=== PATIENT | male | born 1935 | race Caucasian/White ===

== ENCOUNTER 2017-08-21 02:34 | Observation (INO) ==
--- NOTE | 2017-08-21 02:38 | Emergency Department Note ---
Disposition Clinical Impression: Atrial fibrillation Qualifiers: Atrial fibrillation type: unspecified Qualified Code(s): I48.91 - Unspecified atrial fibrillation Disposition: Admitted As Inpatient Condition: Good Referrals: Selina Laws MD [Primary Care Provider] - Forms: ED Satisfaction Letter Arrhythmia/Palpitations HPI - General Chief Complaint: ED Arrhythmia/Palpitations Stated Complaint: irreg rhythm Time Seen by Provider: 08/21/17 02:34 Source: patient, EMS Mode of arrival: EMS Limitations: no limitations Nursing Notes Reviewed: Yes Vital Signs Reviewed: Yes - History of Present Illness HPI Narrative: 82-year-old male history of Parkinson's, atrial fibrillation on aspirin and Plavix who presents to the ER with a chief complaint of palpitations via EMS. Family reports that the patient follows with cardiology and was taken off his amiodarone one month ago because of adverse side effects. States he was not started on anything new and that the oxygen therapist had wanted to admit him last week to start a new medication. The patient declined at that time. Reports that he woke up this morning with palpitations and became anxious. No chest pain. Did feel somewhat short of breath. Reports that he used to be on Coumadin however he was having hematuria so they stopped it. At the time of arrival he was in A. fib RVR with a rate of 1:30. He did convert spontaneously to sinus rhythm without intervention. Pt Subjective Complaint: palpitations Onset (ago): Just [employer] Duration: constant Context: occurred during rest Arrhythmia History: atrial fibrillation Associated symptoms: Reports: denies other symptoms - Related Data Home Medications Medication Instructions Recorded Confirmed Amiodarone HCl [Pacerone] 200 mg PO DAILY 11/27/15 05/07/16 Aspirin 81 mg PO QPM 11/27/15 05/07/16 Clopidogrel [Plavix] 75 mg PO QPM 11/27/15 05/07/16 Furosemide [Lasix] 20 mg PO Q48H 11/27/15 05/07/16 Levothyroxine [Synthroid] 75 mcg PO DAILY 11/27/15 05/07/16 Metoprolol XL (24 HR) Succ [Toprol 12.5 mg PO DAILY 11/27/15 05/07/16 Xl] Nystatin POWDER [Nystop] 1 appl TP BID 11/27/15 05/07/16 Pantoprazole Sodium [Protonix] 40 mg PO DAILY 11/27/15 05/07/16 Pramipexole Di-HCl [Pramipexole 0.5 mg PO TID 11/27/15 05/07/16 Dihydrochloride] Simvastatin [Zocor] 20 mg PO QPM 11/27/15 05/07/16 Previous Rx's Medication Instructions Recorded Doxycycline 100 mg PO BID 10 Days capsule 04/04/16 Mupirocin [Bactroban Oint] 1 appl TP BID 14 Days tube 04/04/16 Allergies Allergy/AdvReac Type Severity Reaction Status Date / Time diphenhydramine Allergy See Verified 11/27/15 13:01 [From Benadryl] Comments All systems ED: reviewed and negative except as stated. Cardiovascular: Reports: palpitations. Denies: chest pain Respiratory: Denies: cough, dyspnea Gastrointestinal: Denies: abdominal pain, nausea, vomiting Past Medical History - Past Medical History Attestation: Yes The following information was validated with the patient. Source: patient Medical history: Reports: atrial fibrillation Surgical history: Reports: other Psychiatric history: Reports: no psych history - Social History Smoking Status: Never smoker Smokeless Tobacco Status: No Alcohol use: Reports: none Drug use: Reports: none Physical Exam - General Limitations: no limitations General appearance: alert, in no apparent distress - Head Head exam: atraumatic, normocephalic, normal inspection - Eye Eye exam: Present: normal appearance, EOMI - ENT ENT exam: normal exam - Neck Neck exam: Present: normal inspection, full ROM - Chest Chest inspection: Present: normal inspection, symmetric chest wall rise - Respiratory Respiratory exam: Present: normal lung sounds bilaterally - Cardiovascular Cardiovascular exam: Present: tachycardia, irregular rhythm, normal heart sounds - Abdominal Exam Abdominal exam: Present: soft, Non-Tender. Absent: tenderness - Extremities Exam Extremities exam: Present: normal inspection, full ROM - Expanded Upper Extremity Exam Shoulder exam: Present: normal inspection, full ROM Arm exam: Present: normal inspection, full ROM Elbow exam: Present: normal inspection, full ROM Forearm/Wrist exam: Present: normal inspection, full ROM Hand exam: Present: normal inspection, full ROM Vascular exam: Normal: radial pulse - Expanded Lower Extremity Exam Hip/Pelvis exam: Present: normal inspection, full ROM Upper leg exam: Present: normal inspection, full ROM Knee exam: Present: normal inspection, full ROM Lower leg exam: Present: normal inspection, full ROM Ankle exam: Present: normal inspection, full ROM Foot/toe exam: Present: normal inspection, full ROM Neurovascular/Tendon exam: Absent: motor deficit, sensory deficit - Neurological Exam Neurological exam: Present: alert - Psychiatric Psychiatric exam: Present: normal affect, normal mood - Skin Skin exam: Present: warm, dry, intact, normal color Course Course Narrative: Patient seen and examined. He has an irregularly irregular rhythm here is tachycardic. We will obtain an EKG, chest x-ray as well as labs including troponin, TSH and BNP. - Reevaluation(s) Reevaluation #1: I discussed results of imaging and lab work with the patient and family. They are agreeable with being admitted. Patient will be admitted to the hospitalist service. Noted to be back in A. fib with a rate in the 70s. Vital Signs Temperature 97.7 F 08/21/17 02:34 Pulse Rate 128 08/21/17 02:34 Respiratory Rate 20 08/21/17 02:34 Blood Pressure 110/83 08/21/17 02:34 O2 Sat by Pulse Oximetry 92 08/21/17 02:34 Temperature 97.7 F 08/21/17 02:34 Pulse Rate 75 08/21/17 04:07 Respiratory Rate 18 08/21/17 04:07 Blood Pressure 118/79 08/21/17 04:07 O2 Sat by Pulse Oximetry 96 08/21/17 04:07 Oxygen Delivery Oxygen Delivery Nasal Cannula Arrhythmia/Palpitations - [facility] Narrative Medical decision making narrative: 82-year-old male presents to the ER due to palpitations. Noted to be in A. fib RVR and presentation with a rate of 1:30. Hemodynamically stable. Converted without intervention. Then went back into A. fib but is currently rate controlled without intervention. Troponin within normal limits. Chest x-ray shows no acute findings. Patient was previously supposed to be admitted last week after seeing cardiology to adjust his medications due to failure of amiodarone secondary to side effect intolerance. Patient is admitted to the hospitalist service for atrial fibrillation. - Lab Data Lab results reviewed: Yes I reviewed the patient's lab results. Result diagrams: 08/21/17 03:26 08/21/17 03:26 Lab Results 08/21/17 08/21/17 08/21/17 Range/Units 03:26 03:26 03:26 WBC 6.2 (4.3-11.1) K/mcL RBC 4.47 (4.19-5.50) M/mcL Hgb 13.4 (12.9-16.9) g/dL Hct 41.0 (37.5-50.1) % MCV 91.7 (83.0-100.0) fL MCH 30.0 (28.0-33.3) pg MCHC 32.7 (31.6-35.5) g/dL RDW 11.6 (11.5-14.5) % Plt Count 176 (140-400) K/mcL MPV 10.6 (9.4-12.4) fL Immature Gran % 0.3 (0-4) % Seg Neutrophils % 56.0 % Lymphocytes % 32.4 % Monocytes % 8.6 % Eosinophils % 2.0 % Basophils % 0.7 % Neutrophils # 3.5 (1.6-8.9) K/mcL Lymphocytes # 2.0 (0.6-4.6) K/mcL Monocytes # 0.5 (0.0-1.3) K/mcL Eosinophils # 0.1 (0.0-0.6) K/mcL Basophils # 0.0 (0.0-0.2) K/mcL PT 11.3 (9.4-12.1) Seconds INR 1.1 APTT 30.6 (26.0-36.0) Seconds Sodium 140 (136-145) mEq/L Potassium 3.5 (3.5-4.5) mEq/L Chloride 103 (98-109) mEq/L Carbon Dioxide 30 H (19-29) mEq/L BUN 12 (8-26) mg/dL Creatinine 0.94 (0.72-1.25) mg/dL Est GFR ( Amer) > 60 (> 60) Est GFR (Non-Af Amer) > 60 (> 60) BUN/Creatinine Ratio 13 (6-26) Glucose 104 H (70-99) mg/dL Calculated Osmolality 290 (280-300) Calcium 9.2 (8.6-10.8) mg/dL Troponin I (0-0.03) ng/mL TSH 3.610 (0.350-4.840) mcIU/mL 08/21/17 Range/Units 03:26 WBC (4.3-11.1) K/mcL RBC (4.19-5.50) M/mcL Hgb (12.9-16.9) g/dL Hct (37.5-50.1) % MCV (83.0-100.0) fL MCH (28.0-33.3) pg MCHC (31.6-35.5) g/dL RDW (11.5-14.5) % Plt Count (140-400) K/mcL MPV (9.4-12.4) fL Immature Gran % (0-4) % Seg Neutrophils % % Lymphocytes % % Monocytes % % Eosinophils % % Basophils % % Neutrophils # (1.6-8.9) K/mcL Lymphocytes # (0.6-4.6) K/mcL Monocytes # (0.0-1.3) K/mcL Eosinophils # (0.0-0.6) K/mcL Basophils # (0.0-0.2) K/mcL PT (9.4-12.1) Seconds INR APTT (26.0-36.0) Seconds Sodium (136-145) mEq/L Potassium (3.5-4.5) mEq/L Chloride (98-109) mEq/L Carbon Dioxide (19-29) mEq/L BUN (8-26) mg/dL Creatinine (0.72-1.25) mg/dL Est GFR ( Amer) (> 60) Est GFR (Non-Af Amer) (> 60) BUN/Creatinine Ratio (6-26) Glucose (70-99) mg/dL Calculated Osmolality (280-300) Calcium (8.6-10.8) mg/dL Troponin I 0.01 (0-0.03) ng/mL TSH (0.350-4.840) mcIU/mL - Radiology Data Radiology results reviewed: Yes I reviewed the patient's radiology results. Chest X-Ray 08/21/17 02:35 IMPRESSION: Mild dependent left basilar atelectasis. Otherwise no acute findings. D/ / German Amador MD / German Amador MD Interpreting Provider: German Amador MD - EKG Data EKG attestation: Yes I reviewed and interpreted this EKG. EKG results narrative: EKG demonstrates atrial fibrillation with rapid ventricular response with a rate of 131. Left axis deviation. Poor R-wave progression. No gross ST elevations or depressions. No acute ischemic findings. Betsy - Betsy Situation: Demographics, MOA Background: Presenting Complaint, Relevant PMH, Meds, & Allergies Assessment: Vital Signs, Course and respsone to treatment, Exam Concerns, Patient/Family Expectation, Pertinant Lab Results, Outstanding Labs Recommendation: Barrier(s) to disposition, Recommendation based on pending studies, treatments, or consults Betsy Report Given to: Dr. Cameron Meyer Repor Time: 05:11 Attestation Statement - Attestation Attestation: I examined this patient and my medical decision-making was reviewed with the Resident Physician. I agree with the documented findings, disposition and treatment plan as described except to the extent set forth below. Patient eating Tylenol. Patient woke up with palpitations and chest pressure. Patient with history of atrial fibrillation. He is recently taken off his amiodarone secondary to side effects. States he was supposed to be admitted to the hospital for 3 days adjust his medications but he refused. Exam shows him in no distress. Heart tachycardia and irregular regular. Plan. Patient's rhythm converted spontaneously to normal sinus. Patient back in A. fib. Likely admission for cardiac eval.
[2017-08-21 03:32] LABS: Basophils % 0.7 %; Eosinophils # 0.1 K/mcL (0.0-0.6); Hemoglobin 13.4 g/dL (12.9-16.9); Immature Granulocytes % 0.3 % (0-4); Lymphocytes % 32.4 %; Mean Corpuscular HGB Conc 32.7 g/dL (31.6-35.5); Mean Corpuscular Volume 91.7 fL (83.0-100.0); Mean Platelet Volume 10.6 fL (9.4-12.4); Monocytes # 0.5 K/mcL (0.0-1.3); Monocytes % 8.6 %; Neutrophils # 3.5 K/mcL (1.6-8.9); Platelet Count 176 K/mcL (140-400); Red Blood Count 4.47 M/mcL (4.19-5.50); Red Cell Distribution Width 11.6 % (11.5-14.5)
[2017-08-21 03:37] LABS: INR 1.1; Prothrombin Time 11.3 Seconds (9.4-12.1)
[2017-08-21 03:40] LABS: Activated Partial Thrombo Time 30.6 Seconds (26.0-36.0)
[2017-08-21 03:45] LABS: BUN/Creatinine Ratio 13 (6-26); Blood Urea Nitrogen 12 mg/dL (8-26); Calcium 9.2 mg/dL (8.6-10.8); Carbon Dioxide 30 mEq/L (19-29); Chloride 103 mEq/L (98-109); Glucose 104 mg/dL (70-99); Osmolality,Calculated 290 (280-300); Potassium 3.5 mEq/L (3.5-4.5); Sodium 140 mEq/L (136-145); eGFR For African Americans > 60 (> 60); eGFR For Non-African Americans > 60 (> 60)
[2017-08-21] MEDS ORDERED: *HR* Morphine 2 MG/ML SYRINGE IVP PRN (05:10)
[2017-08-21] MEDS ORDERED: *HR* HYDROcodone/Acet 5/325 mg TABLET PO PRN (05:10)
[2017-08-21] MEDS ORDERED: Ondansetron 4 MG/2 ML VIAL IVP PRN (05:10)
[2017-08-21] MEDS ORDERED: Acetaminophen 325 MG TABLET PO PRN (05:10)
[2017-08-21] MEDS ORDERED: MOM Conc 10 ML UD.LIQ PO PRN (05:10)
[2017-08-21] MEDS ORDERED: Naloxone 0.4 MG/ML INJ IVP PRN (05:10)
[2017-08-21] MEDS ORDERED: *HR* Promethazine 25 MG/ML VIAL IVP PRN (05:10)
--- NOTE | 2017-08-21 06:27 | Internal Med History&Physical ---
Date of Encounter: 08/21/17 Time of Encounter: 05:20 Assessment and Plan (1) Atrial fibrillation with RVR Current visit: Yes Status: Acute Will place the pt into Tele for observation Currently on the monitor he is in NSR he is still going in and out Afib, however it is rate controlled Will cont home PO med Metoprolol Will consult Crdiology to discuss about anti arrythamic medication Cont ASA and Plavix for anticoag will check serial trop reviewed EKG from ER showed Afib with RVR VR @ 131 (2) Hypothyroidism (acquired) Current visit: Yes Status: Acute resumed home med TSH - WNL @ 3.16 (3) Parkinson disease Current visit: No Status: Chronic stable resumed all home meds (4) GERD (gastroesophageal reflux disease) Current visit: Yes Status: Acute resumed home PPI Qualifiers: Qualified Code(s): K21.9 - Gastro-esophageal reflux disease without esophagitis Internal Medicine - H&P: HPI Chief complaint: Palpitations Admitted From: Emergency Dept Plans for Post Hospital Care: Home History of present illness: Mr. Li is a 82 year old male with history of Parkinson's, HTN, Hypothyroidism , Chronic atrial fibrillation who presents to the ER with a chief complaint of palpitations via EMS. Family reports that the patient follows with woods overseer Dr. Delgado and was taken off his amiodarone one month ago because of adverse side effects. States he was not started on anything new and that the woods overseer had wanted to admit him in the hospital last week to start a new medication. The patient declined at that time. Reports that he woke up this morning with palpitations and became anxious. No chest pain. Did feel somewhat short of breath. Reports that he used to be on Coumadin however he was having hematuria so it was stopped. At the time of arrival he was in A. fib RVR with a rate of 131. He did convert spontaneously to sinus rhythm without intervention. Now he is going to in and out Afib and Sinus Rhythm Past Med Surg Social Fam HX - Past Medical History Medical history: atrial fibrillation Psychiatric history: no psych history - Past Surgical History Surgical History: other - Social History Smoking Status: Never smoker Smokeless Tobacco Status: No Alcohol use: none Drug use: none Internal Medicine - H&P: Meds Amiodarone HCl [Pacerone] 200 mg PO DAILY 11/27/15 [History] Aspirin 81 mg PO QPM 11/27/15 [History] Clopidogrel [Plavix] 75 mg PO QPM 11/27/15 [History] Furosemide [Lasix] 20 mg PO Q48H 11/27/15 [History] Levothyroxine [Synthroid] 75 mcg PO DAILY 11/27/15 [History] Metoprolol XL (24 HR) Succ [Toprol Xl] 12.5 mg PO DAILY 11/27/15 [History] Nystatin POWDER [Nystop] 1 appl TP BID 11/27/15 [History] Pantoprazole Sodium [Protonix] 40 mg PO DAILY 11/27/15 [History] Pramipexole Di-HCl [Pramipexole Dihydrochloride] 0.5 mg PO TID 11/27/15 [History ] Simvastatin [Zocor] 20 mg PO QPM 11/27/15 [History] Doxycycline 100 mg PO BID 10 Days capsule 04/04/16 [Rx] Mupirocin [Bactroban Oint] 1 appl TP BID 14 Days tube 04/04/16 [Rx] 3 Allergy/AdvReac Type Severity Reaction Status Date / Time diphenhydramine Allergy See Verified 11/27/15 13:01 [From Benadryl] Comments All Systems PM: A 10-system review of systems was performed and is negative for pertinent findings except as documented above in the HPI. Review of systems: All the systems are reviewed everything is benign except the systems and symptoms I mentioned in the history of present illness - Constitutional Vitals: Temp Pulse Resp BP Pulse Ox 97.7 F 75 16 149/98 96 08/21/17 02:34 08/21/17 04:07 08/21/17 06:03 08/21/17 06:03 08/21/17 04:07 General appearance: Present: A&O X 3, pleasant, no acute distress, answers questions appropriately - Head Head exam: Present: atraumatic, normal inspection - Respiratory Respiratory exam: Present: decreased breath sounds. Absent: rales, respiratory distress, rhonchi, wheezes - Cardiovascular Cardiovascular exam: Present: RRR, +S1, +S2. Absent: systolic murmur - GI/Abdominal GI/Abdominal exam: Present: normal bowel sounds, soft. Absent: rebound, rigid, tenderness - Extremities Exam Extremities exam: Absent: calf tenderness, pedal edema, tenderness - Neurological Exam Neurological exam: Present: alert, oriented X3. Absent: reflexes normal - Psychiatric Psychiatric exam: Present: normal affect, normal mood Internal Med - H&P Results - Labs CBC & Chem 7: 08/21/17 03:26 08/21/17 03:26
[2017-08-21] MEDS: Metoprolol XL (24 HR) Succ 25 MG TAB.ER.24H PO SCH (07:24)
--- NOTE | 2017-08-21 10:41 | Cardiology Consult Note ---
Date of Encounter: 08/21/17 Time of Encounter: 10:30 Assessment and Plan (1) Atrial fibrillation with RVR Current Visit: Yes Status: Chronic Per Cardiology: Presented with paroxysmal atrial fibrillation with RVR. Previous medical records reviewed from cardiology and patient with known history of paroxysmal atrial fibrillation. Recently had amiodarone discontinued per patient request and neurology with concerns of amiodarone contributing to neuropathy. Per review of records, patient declined further evaluation July 2017 of any other antiarrhythmic therapy. Patient now back in sinus rhythm on low dose Toprol XL 12.5mg PO daily-- appears to be new medication. Asked to reevaluate other antiarrhythmic options. Unfortunately, patient appears to have not been anticoagulated for many years now due to GI bleeding. Patient has Parkinson's disease and dementia. Per review of records, patient is not anticoagulated due to history of GI bleed, fall risk, and intermittent hematuria. No further recommendations for antiarrhythmic therapy during this hospital stay since not anticoagulated. Continue with current regimen. Patient will be scheduled with primary pulmonary fellow for follow-up to reevaluate long-term potential to consider repeat attempt at anticoagulation and other antiarrhythmic options. Discussed and reviewed with Dr. Fountain, cardiology will sign off, re-consult as needed, follow-up scheduled. Patient verbalized understanding, no family at bedside. (2) Hematuria Current Visit: Yes Status: Acute Per Cardiology: Patient reports concerns of hematuria intermittent the past few days, however upon review of medical records it appears hematuria and ongoing for quite some time. H&H stable. Further management per primary service. On aspirin and Plavix only for now. Qualifiers: Hematuria type: unspecified type Qualified Code(s): R31.9 - Hematuria, unspecified (3) CAD (coronary artery disease) Current Visit: Yes Status: Chronic Per Cardiology: History of CAD with previous stenting. Denies any chest pain. Troponin negative. Echo from July 2017 showed EF 60-65%, NSWMA. On aspirin, Plavix, statin, and now beta sailaja. Qualifiers: Coronary Disease-Associated Artery/Lesion type: rincon artery [place] vs. transplanted heart: rincon heart Associated angina: without angina Qualified Code(s): I25.10 - Atherosclerotic heart disease of rincon coronary artery without angina pectoris (4) Parkinson disease Current Visit: No Status: Chronic Per Cardiology: Patient with flat affect. Provided one-word answers. Again, no family at bedside. Per review of records, has history of Parkinson's and dementia. Discussion w patient/family: The assessment and plan as outlined above was discussed with the patient who expressed understanding and agreement. All questions were answered. Thank you for involving us in the care of your patient. Please call with any questions. History of Present Illness Consult date: 08/21/17 Requesting physician: Nancy Hidalgo Consult reason: Afib, Re-evalaute for antiarrhythmic Chief complaint: "Panting" History of present illness: Mr. Li is a 82 year old male with a relevant past medical history of dementia , Parkinson's disease, paroxysmal H of fibrillation, CAD, hypothyroidism, GERD. Patient recently seen by Dr. Delgado with cardiology in July 2017. Cardiology consult to evaluate potential antiarrhythmic therapy for recurrent paroxysmal atrial fibrillation. Patient seen today with no family at bedside. Patient with flat affect. Answers one word responses. He reports reason for admission was "panting". Patient confirms discontinuation of amiodarone recently. He confirms would like to reevaluate antiarrhythmic options. He reports has not been on Coumadin for at least 3 years now due to GI bleeding. He does report recent hematuria with clots in his urine. He denies any chest pain, palpitations, shortness of breath. Denies any other concerns. Patient eventually closed his eyes and would only continue with one-word answers. He was alert and oriented to person and place. Past Med Surg Social Fam HX - Past Medical History Attestation: Yes The following information was validated with the patient. Source: patient, old records reviewed Medical history: atrial fibrillation, coronary artery disease, dementia, GERD, thyroid disease, other (Parkinson's disease) Psychiatric history: no psych history - Past Surgical History Surgical History: other - Social History Smoking Status: Never smoker Smokeless Tobacco Status: No Alcohol use: none Drug use: none - Family History Mother Living Status: Father Living Status: Cause of : [place] Medications and Allergies Aspirin 81 mg PO QPM 11/27/15 [History] Clopidogrel [Plavix] 75 mg PO QTUTHSA 11/27/15 [History] Furosemide [Lasix] 20 mg PO Q48H 11/27/15 [History] Pantoprazole Sodium [Protonix] 40 mg PO DAILY 01/14/16 [History] Pramipexole Di-HCl [Pramipexole Dihydrochloride] 0.5 mg PO TID 11/27/15 [History ] Simvastatin [Zocor] 20 mg PO QPM 11/27/15 [History] Carbidopa/Levodopa [Carbidopa-Levodopa 25-100 Tab] 2 tab PO QID 08/21/17 [ History] Levothyroxine Sodium [Levoxyl] 112 mcg PO DAILY 08/21/17 [History] 3 Allergy/AdvReac Type Severity Reaction Status Date / Time diphenhydramine Allergy See Verified 11/27/15 13:01 [From Benadryl] Comments All Systems Review: A 10-system review of systems was performed and is negative for pertinent findings except as documented above in the HPI. - Cardiovascular Cardiovascular: as per HPI, dyspnea at rest Physical Examination Vital Signs, Last 4 Hours Pulse Ox 08/21/17 07:30 95 Selected Entries 08/21/17 04:07 08/21/17 06:27 08/21/17 07:30 Temperature 98.1 F Pulse Rate 63 Respiratory Rate 16 Blood Pressure 109/65 O2 Sat by Pulse Oximetry 95 Oxygen Flow Rate (LPM) 2 General: Conversant, No Apparent Distress HEENT: Atraumatic, Normocephaly, Mucus Membranes Moist Neck: No JVD, Normal carotid pulses Cardiac: Reg Rate and Rhythm, Normal S1 and S2, No Murmur Lungs: Normal Breath Sounds, No Wheeze, Rales, Rhonchi Neuro: Alert and responsive, No focal deficits noted, Other (Flat affect, alert to perosn and place) Abdomen: Soft, Non-Tender Skin: No rashes noted on visualized skin Musculoskeletal: No Chest Wall Tenderness Extremities: No Edema, Normal Pulses Results 08/21/17 03:26 08/21/17 03:26 Lab Results Laboratory Tests 08/21/17 08/21/17 08/21/17 03:26 03:26 03:26 INR 1.1 Troponin I 0.01 TSH 3.610 08/21/17 08:41 INR Troponin I 0.02 TSH ITS Impressions Chest X-Ray 08/21/17 02:35 IMPRESSION: Mild dependent left basilar atelectasis. Otherwise no acute findings. D/ / German Amador MD / German Amador MD Interpreting Provider: German Amador MD Active Medications Acetaminophen (Tylenol) 650 mg PO Q6HR PRN PRN Reason: Mild Pain (1-3) Stop: 02/20/18 05:11 Hydrocodone Bitart/Acetaminophen ([place] 5-325 Mg) 1 tab PO Q4HR PRN PRN Reason: Moderate Pain (4-6) Stop: 02/20/18 05:11 Aspirin (Aspirin) 81 mg PO QPM [facility] Stop: 02/20/18 18:01 Clopidogrel Bisulfate (Plavix) 75 mg PO QPM [facility] Stop: 02/20/18 18:01 Docusate Sodium (Colace) 100 mg PO BID PRN PRN Reason: Constipation Stop: 02/20/18 05:11 Levothyroxine Sodium (Synthroid) 75 mcg PO 0630 [facility] Stop: 02/20/18 06:31 Last Admin: 08/21/17 07:33 Dose: 75 mcg Magnesium Hydroxide (Milk Of Magnesia Conc) 10 ml PO DAILY PRN PRN Reason: Indigestion Stop: 02/20/18 05:11 Metoprolol Succinate (Toprol Xl) 12.5 mg PO DAILY [facility] Stop: 02/20/18 09:01 Last Admin: 08/21/17 07:24 Dose: Not Given Morphine Sulfate (Morphine Sulfate) 2 mg IVP Q4HR PRN PRN Reason: Severe Pain (7-10) Stop: 02/20/18 05:11 Naloxone HCl (Narcan) 0.4 mg IVP Q2MIN PRN PRN Reason: Opioid Reversal Stop: 02/20/18 05:11 Omeprazole (Prilosec) 20 mg PO 0630 [facility] Stop: 02/20/18 06:31 Last Admin: 08/21/17 07:34 Dose: 20 mg Ondansetron HCl (Zofran) 4 mg IVP Q6HR PRN PRN Reason: Nausea And Vomiting Stop: 02/20/18 05:11 Pramipexole Dihydrochloride (Mirapex) 0.5 mg PO TID [facility] Stop: 02/20/18 09:01 Last Admin: 08/21/17 07:34 Dose: 0.5 mg Promethazine HCl (Phenergan) 12.5 mg IVP Q6HR PRN PRN Reason: Nausea And Vomiting Stop: 02/20/18 05:11 Simvastatin (Zocor) 20 mg PO QPM [facility] PRN Reason: Protocol Stop: 02/20/18 18:01 - Imaging and Cardiology Chest Xray: report reviewed Echo: report reviewed - EKG Interpretation EKG results cardiology: personally reviewed (afib RVR 130's), other (Currently SR 70's on tele, telemetry reviewed with average heart rate the past 12 hours 70 , sinus rhythm, no recurrent A. fib or significant events noted) Consult Discharge Plan - Plan Referrals: Selina Laws MD [Primary Care Provider] -
--- NOTE | 2017-08-21 14:22 | Event Note ---
Date of Encounter: 08/21/17 Time of Encounter: 10:40 Patient denies any chest pain at this time. No palpitations. Shortness of breath has improved. Has converted to sinus rhythm. Continue metoprolol. Cardiology has been consulted. No indication for new antiarrhythmic agent as patient is not anticoagulated. Reports hematuria and is scheduled to follow up with urology as outpatient later this month for cystoscopy. Blood counts remain stable. Plan for discharge tomorrow if heart rate remains well controlled.
[2017-08-21] MEDS ORDERED: Aspirin 81 MG TAB.CHEW PO SCH (18:00)
[2017-08-21] MEDS: Carbidopa/Levodopa 25/100 TABLET PO SCH ×2 (18:39→21:24)
[2017-08-21] MEDS ORDERED: Carbidopa/Levodopa 25/100 TABLET PO SCH (21:00)
[2017-08-22] MEDS: Carbidopa/Levodopa 25/100 TABLET PO SCH (08:34)
[2017-08-22] MEDS: Metoprolol XL (24 HR) Succ 25 MG TAB.ER.24H PO SCH (08:34)
--- NOTE | 2017-08-22 10:04 | Discharge Summary ---
Date of Encounter: 08/22/17 Time of Encounter: 08:30 - Discharge Diagnosis (1) Atrial fibrillation with RVR Priority: Primary Status: Acute (2) GERD (gastroesophageal reflux disease) Priority: Secondary Status: Acute Qualifiers: Qualified Code(s): K21.9 - Gastro-esophageal reflux disease without esophagitis (3) Hypothyroidism (acquired) Priority: Secondary Status: Acute (4) Parkinson disease Priority: Secondary Status: Chronic - Discharge Medications Prescriptions: Metoprolol XL (24 HR) Succ [Toprol Xl] 12.5 mg PO DAILY #30 tab.er.24h Home Medications: Aspirin 81 mg PO QPM 11/27/15 [History] Clopidogrel [Plavix] 75 mg PO QTUTHSA 11/27/15 [History] Furosemide [Lasix] 20 mg PO Q48H 11/27/15 [History] Pantoprazole Sodium [Protonix] 40 mg PO DAILY 11/27/15 [History] Pramipexole Di-HCl [Pramipexole Dihydrochloride] 0.5 mg PO TID 11/27/15 [History ] Simvastatin [Zocor] 20 mg PO QPM 11/27/15 [History] Carbidopa/Levodopa [Carbidopa-Levodopa 25-100 Tab] 2 tab PO QID 08/21/17 [ History] Levothyroxine Sodium [Levoxyl] 112 mcg PO DAILY 08/21/17 [History] Metoprolol XL (24 HR) Succ [Toprol Xl] 12.5 mg PO DAILY #30 tab.er.24h 08/22/17 [Rx] Allergies/Adverse Reactions: 3 Allergy/AdvReac Type Severity Reaction Status Date / Time diphenhydramine Allergy See Verified 11/27/15 13:01 [From Benadryl] Comments Date of admission: 08/21/17 05:20 Primary care physician: Selina Laws MD Consults: 08/21/17 06:32 Consult to Washer Machine [CONS] Routine Reason for SW Consult: has [facility] 08/21/17 08:04 Consult to Cardiology [CONS] Routine Comment: Consulting Provider: Cardiology Elizabeth Reason for Consult: Afib - previously advised to change antiarrhythmic Call Completed: Yes Discharging clinician: Nancy Hidalgo Anticipated date of discharge: 08/22/17 - Patient Status Disposition: Home, Self-Care Condition: Good Functional capacity at discharge: independent ambulation Overall status at discharge: patient is progressing back to baseline - Discharge Instructions Instructions: Atrial Fibrillation (DC) Follow Up With: Julius Delgado MD [Partnered Physician] - (in 1-2 weeks) Selina Laws MD [Primary Care Provider] - (in 1 week) - Diet and Activity Activity: increase activity as tolerated Diet: advance to your usual diet, low fat, low cholesterol, low salt diet Hospital course: Mr. Li is a 82 year old male patient with a history of atrial fibrillation, Parkinson's disease, hypertension, hypothyroidism who was hospitalized here after presented with complaints of palpitations and increased anxiety along with shortness of breath. He was found to be in A. fib with rapid ventricle response with a heart rate between 120 and 140. He converted spontaneously to sinus rhythm but he was monitored overnight in the hospital and cardiology was consulted. Patient was placed on low-dose metoprolol. He had been recommended to start a different antiarrhythmic agent as his amiodarone was stopped due to pulmonary toxicity. However patient is currently not anticoagulated due to episodes of hematuria for which he has been scheduled for urologic follow-up and cystoscopy. Patient denies any new episodes of hematuria at this time. Cardiology recommends no further intervention at this time and to continue rate control with metoprolol patient has remained in sinus rhythm overnight and is now stable for discharge home. He will follow up with cardiology and urology as outpatient. - Time Spent with Patient Total time spent providing and/or coordinating discharge services: Less than 30 minutes (25 min) - Constitutional Vitals: Temp Pulse Resp BP Pulse Ox 97.8 F 63 15 117/74 93 08/22/17 06:16 08/22/17 06:16 08/22/17 06:16 08/22/17 06:16 08/22/17 06:16 General appearance: Present: A&O X 3, pleasant, no acute distress, answers questions appropriately - Respiratory Respiratory exam: Present: CTAB. Absent: accessory muscle use, rales, rhonchi, wheezes - Cardiovascular Cardiovascular exam: Present: RRR, +S1, +S2. Absent: diastolic murmur, gallop, rubs, systolic murmur - GI/Abdominal GI/Abdominal exam: Present: normal bowel sounds, soft, no peritoneal signs. Absent: distended, tenderness - Extremities Exam Extremities exam: Present: warm, radial pulses palpable and symmetrical. Absent : calf tenderness, cyanotic, pedal edema
[2017-08-22 10:24] VITALS: BP 134/68
--- NOTE | 2017-08-22 13:27 | Physician Discharge Referral ---
Home Health/Hosp Referral Info Transfer to: Hospice Provider in Charge Post Discharge: PCP - Diagnosis (1) Atrial fibrillation with RVR Priority: Primary Status: Acute (2) GERD (gastroesophageal reflux disease) Priority: Secondary Status: Acute (3) Hypothyroidism (acquired) Priority: Secondary Status: Acute (4) Parkinson disease Priority: Secondary Status: Chronic - Respiratory Orders Smoking Cessation: Smoking cessation has been advised. For more information, call the [place] Tobacco Quit Line at 6-246-EXCS-NOW. - Diet/Nutrition Diet/Nutrition Orders: Cardiac - Services Needed Following services are medically necessary services: Nursing, Home Health Aide, Physical Therapy, Occupational Therapy - Transfer Medications Prescriptions: Metoprolol XL (24 HR) Succ [Toprol Xl] 12.5 mg PO DAILY #30 tab.er.24h Home Medications: Aspirin 81 mg PO QPM 11/27/15 [History] Clopidogrel [Plavix] 75 mg PO QTUTHSA 11/27/15 [History] Furosemide [Lasix] 20 mg PO Q48H 11/27/15 [History] Pantoprazole Sodium [Protonix] 40 mg PO DAILY 11/27/15 [History] Pramipexole Di-HCl [Pramipexole Dihydrochloride] 0.5 mg PO TID 11/27/15 [History ] Simvastatin [Zocor] 20 mg PO QPM 11/27/15 [History] Carbidopa/Levodopa [Carbidopa-Levodopa 25-100 Tab] 2 tab PO QID 08/21/17 [ History] Levothyroxine Sodium [Levoxyl] 112 mcg PO DAILY 08/21/17 [History] Metoprolol XL (24 HR) Succ [Toprol Xl] 12.5 mg PO DAILY #30 tab.er.24h 08/22/17 [Rx] Allergies/Adverse Reactions: 3 Allergy/AdvReac Type Severity Reaction Status Date / Time diphenhydramine Allergy See Verified 11/27/15 13:01 [From Eris] Comments Certification: Further, I certify that my clinical findings support that this patient is homebound (i.e. absences from home require considerable and taxing effort and are for medical reasons or roman catholic services or infrequently or short duration when for other reasons) because: Homebound Reason: Patient requires assistance of a person or device to safely leave home Attestation: My signature below is to certify that this patient is under my care and that I, or nurse practitioner, or a physician's assistant track and field coach working with me, has a face-to -face encounter with this patient.
--- NOTE | 2017-08-22 13:48 | Electrocardiograph Report ---
[place] [id number] Test Date: 2017-08-21 Pat Name: Tra Li Department: 103 Room: 3B21 Gender: M Cardiovascular Lab Director: JARETH : [id number] Requested By: Keon Sánchez Order Number: [id number] Reading MD: Drea Merritt Measurements Intervals [place] Rate: 131 P: ID: 0 QRS: -41 QRSD: 95 T: 3 QT: 320 QTc: 397 Interpretive Statements ATRIAL FIBRILLATION WITH RAPID VENTRICULAR RESPONSE MARKED LEFT AXIS DEVIATION [QRS AXIS < -30] PATTERN CONSISTENT WITH PULMONARY DISEASE INCOMPLETE RIGHT BUNDLE BRANCH BLOCK [90+ ms QRS DURATION, TERMINAL R IN V1/V2, 40+ ms S IN I/aVL/V4/V5/V6] SEPTAL MYOCARDIAL INFARCTION [40+ ms Q WAVE IN V1/V2], PROBABLY OLD INTERPRETATION BASED ON A DEFAULT AGE OF 40 YEARS Electronically Signed On 08-22-2017 13:47:29 EDT by Drea Merritt
== END 2017-08-22 13:05 | disposition home or self-care (01) ==
LOC: EMEROO 02:34 → 3BNU 02:34 → SUATTDRO 05:20 → 3BNU 06:03
PROVIDERS: ADMIT Family Medicine; ATTEND Internal Medicine

== ENCOUNTER 2017-09-02 14:54 | Inpatient (IN) ==
[2017-09-02] MEDS ORDERED: 0.9 % Sodium Chloride 500 ML IVC ONE (15:00)
--- NOTE | 2017-09-02 15:08 | Emergency Department Note ---
Disposition Clinical Impression: Paroxysmal atrial fibrillation Disposition: Admitted As Inpatient Condition: Fair Referrals: Selina Laws MD [Primary Care Provider] - Forms: ED Satisfaction Letter Time of Disposition: 17:10 SOB HPI - General Chief Complaint: ED Shortness of Breath/Dyspnea Stated Complaint: BRITTNI Time Seen by Provider: 09/02/17 14:58 Source: patient, EMS Mode of arrival: EMS Limitations: no limitations Nursing Notes Reviewed: Yes Vital Signs Reviewed: Yes - History of Present Illness 82-year-old who comes in complaining of shortness of breath was noted to have a heart rate in the 60s. The patient does have a history of atrial fibrillation. Pt Subjective Complaint: shortness of breath Onset (ago): Just [employer] Context: other (Sewed of atrial fibrillation with rapid ventricular response a week ago.) Severity: moderate Consistency/Duration: constant Improves with: nothing Worsens with: exertion Associated symptoms: Denies: chest pain, fever, cough Treatment prior to arrival: oxygen Cough present: No - Related Data Home Medications Medication Instructions Recorded Confirmed Aspirin 81 mg PO QPM 11/27/15 08/26/17 Clopidogrel [Plavix] 75 mg PO QTUTHSA 11/27/15 08/26/17 Furosemide [Lasix] 20 mg PO Q48H 11/27/15 08/26/17 Pantoprazole Sodium [Protonix] 40 mg PO DAILY 11/27/15 08/26/17 Pramipexole Di-HCl [Pramipexole 0.5 mg PO TID 11/27/15 08/26/17 Dihydrochloride] Simvastatin [Zocor] 20 mg PO QPM 11/27/15 08/26/17 Carbidopa/Levodopa 2 tab PO QID 08/21/17 08/26/17 [Carbidopa-Levodopa 25-100 Tab] Levothyroxine Sodium [Levoxyl] 112 mcg PO DAILY 08/21/17 08/26/17 24Hour Allergy 08/26/17 Docusate [Colace] 100 mg PO BID 08/26/17 08/26/17 Ergocalciferol (VITAMIN D2) 400 unit PO DAILY 08/26/17 08/26/17 [Vitamin D] Loratadine [Claritin] 10 mg PO DAILY 08/26/17 08/26/17 Ranitidine HCl [Acid Customer Manager] 75 mg PO Q48H 08/26/17 08/26/17 Previous Rx's Medication Instructions Recorded Metoprolol XL (24 HR) Succ [Toprol 12.5 mg PO DAILY #30 tab.er.24h 08/22/17 Xl] Allergies Allergy/AdvReac Type Severity Reaction Status Date / Time diphenhydramine Allergy See Verified 08/26/17 11:36 [From Eris] Comments Constitutional: Denies: fever, chills, weakness, weight change Eyes: Denies: eye pain, eye discharge, vision change ENT ED: Denies: ear pain, throat pain, dental pain, hearing loss, epistaxis, congestion, dysphagia Cardiovascular: Reports: palpitations. Denies: chest pain, dyspnea on exertion , edema, syncope Respiratory: Reports: dyspnea. Denies: cough, wheezes, hemoptysis, stridor Gastrointestinal: Denies: abdominal pain, nausea, vomiting, diarrhea, constipation, hematemesis, melena, hematochezia Genitourinary: Denies: urgency, dysuria, frequency, hematuria Musculoskeletal: Denies: back pain, neck pain, arthralgia, myalgia Integumentary: Denies: rash, abrasion, lesions Neurological: Denies: headache, weakness, numbness, paresthesias, confusion, abnormal gait, vertigo Psychiatric: Denies: anxiety, depression, suicidal thoughts, homicidal thoughts , auditory hallucinations, visual hallucinations Endocrine: Denies: fatigue Hematological/Lymphatic: Denies: easy bleeding, easy bruising Allergic/Immunologic: Denies: facial swelling, urticaria Past Medical History - Past Medical History Medical history: Reports: atrial fibrillation, coronary artery disease, dementia , GERD, thyroid disease, other Surgical history: Reports: other Psychiatric history: Reports: no psych history - Social History Smoking Status: Never smoker Smokeless Tobacco Status: No Alcohol use: Reports: none Drug use: Reports: none Physical Exam - General Limitations: no limitations General appearance: alert, in no apparent distress - Head Head exam: atraumatic, normocephalic, normal inspection - Eye Eye exam: Present: normal appearance, PERRL, EOMI - ENT ENT exam: normal exam, normal oropharynx, mucous membranes moist - Neck Neck exam: Present: normal inspection, full ROM, trachea midline - Chest Chest inspection: Present: normal inspection, symmetric chest wall rise - Respiratory Respiratory exam: Present: normal lung sounds bilaterally - Cardiovascular Cardiovascular exam: Present: tachycardia (168), irregular rhythm, normal heart sounds - Abdominal Exam Abdominal exam: Present: soft, Non-Tender. Absent: tenderness, distention, guarding, rebound, rigidity - Extremities Exam Extremities exam: Present: normal inspection, full ROM. Absent: tenderness, pedal edema - Expanded Lower Extremity Exam Neurovascular/Tendon exam: Absent: motor deficit, sensory deficit, tendon deficit Gait: not tested/not observed - Back Exam Back exam: Present: normal inspection, full ROM. Absent: tenderness - Neurological Exam Neurological exam: Present: alert, oriented X3 - Psychiatric Psychiatric exam: Present: normal affect, normal mood - Skin Skin exam: Present: warm, dry, intact, normal color Course - Reevaluation(s) Reevaluation #1: While we were placing an IV the patient converted to a sinus rhythm with PACs a rate of 79. Time: 15:13 - Consultations Consultation #1: Discussed with Dr. Salcido, we will admit for monitoring consider increasing beta sailaja Time: 16:35 Consultation #2: Discussed with Rush Ross, admit Time: 17:09 Vital Signs Temperature 98 F 09/02/17 14:56 Pulse Rate 128 09/02/17 14:56 Respiratory Rate 18 09/02/17 14:56 Blood Pressure 106/76 09/02/17 14:56 O2 Sat by Pulse Oximetry 95 09/02/17 14:56 Temperature 98 F 09/02/17 14:56 Pulse Rate 78 09/02/17 16:45 Respiratory Rate 18 09/02/17 16:45 Blood Pressure 121/73 09/02/17 16:45 O2 Sat by Pulse Oximetry 97 09/02/17 16:45 Oxygen Delivery Oxygen Delivery Room Air Shortness of Breath/Dyspnea - Lab Data Result diagrams: 09/02/17 15:05 09/02/17 15:05 Lab Results 09/02/17 09/02/17 09/02/17 Range/Units 15:05 15:05 15:05 WBC 7.0 (4.3-11.1) K/mcL RBC 4.70 (4.19-5.50) M/mcL Hgb 14.8 (12.9-16.9) g/dL Hct 43.8 (37.5-50.1) % MCV 93.2 (83.0-100.0) fL MCH 31.5 (28.0-33.3) pg MCHC 33.8 (31.6-35.5) g/dL RDW 11.7 (11.5-14.5) % Plt Count 191 (140-400) K/mcL MPV 11.4 (9.4-12.4) fL Immature Gran % 0.4 (0-4) % Seg Neutrophils % 56.7 % Lymphocytes % 33.6 % Monocytes % 7.7 % Eosinophils % 0.9 % Basophils % 0.7 % Neutrophils # 4.0 (1.6-8.9) K/mcL Lymphocytes # 2.3 (0.6-4.6) K/mcL Monocytes # 0.5 (0.0-1.3) K/mcL Eosinophils # 0.1 (0.0-0.6) K/mcL Basophils # 0.1 (0.0-0.2) K/mcL Sodium 141 (136-145) mEq/L Potassium 3.7 (3.5-4.5) mEq/L Chloride 102 (98-109) mEq/L Carbon Dioxide 31 H (19-29) mEq/L BUN 8 (8-26) mg/dL Creatinine 0.98 (0.72-1.25) mg/dL Est GFR ( Amer) > 60 (> 60) Est GFR (Non-Af Amer) > 60 (> 60) BUN/Creatinine Ratio 8 (6-26) Glucose 98 (70-99) mg/dL Calculated Osmolality 290 (280-300) Lactic Acid 1.4 (0.5-2.2) mmol/L Calcium 9.6 (8.6-10.8) mg/dL Troponin I (0-0.03) ng/mL B-Natriuretic Peptide (0-100) pg/mL 09/02/17 09/02/17 Range/Units 15:05 15:05 WBC (4.3-11.1) K/mcL RBC (4.19-5.50) M/mcL Hgb (12.9-16.9) g/dL Hct (37.5-50.1) % MCV (83.0-100.0) fL MCH (28.0-33.3) pg MCHC (31.6-35.5) g/dL RDW (11.5-14.5) % Plt Count (140-400) K/mcL MPV (9.4-12.4) fL Immature Gran % (0-4) % Seg Neutrophils % % Lymphocytes % % Monocytes % % Eosinophils % % Basophils % % Neutrophils # (1.6-8.9) K/mcL Lymphocytes # (0.6-4.6) K/mcL Monocytes # (0.0-1.3) K/mcL Eosinophils # (0.0-0.6) K/mcL Basophils # (0.0-0.2) K/mcL Sodium (136-145) mEq/L Potassium (3.5-4.5) mEq/L Chloride (98-109) mEq/L Carbon Dioxide (19-29) mEq/L BUN (8-26) mg/dL Creatinine (0.72-1.25) mg/dL Est GFR ( Amer) (> 60) Est GFR (Non-Af Amer) (> 60) BUN/Creatinine Ratio (6-26) Glucose (70-99) mg/dL Calculated Osmolality (280-300) Lactic Acid (0.5-2.2) mmol/L Calcium (8.6-10.8) mg/dL Troponin I 0.01 (0-0.03) ng/mL B-Natriuretic Peptide 161 H (0-100) pg/mL - EKG Data EKG attestation: Yes I reviewed and interpreted this EKG. Rate: Reports: tachycardia (143) Rhythm: Reports: A.Fib Interpretation: Reports: other (A. fib RVR)
[2017-09-02 15:23] LABS: Basophils # 0.1 K/mcL (0.0-0.2); Basophils % 0.7 %; Eosinophils # 0.1 K/mcL (0.0-0.6); Eosinophils % 0.9 %; Hematocrit 43.8 % (37.5-50.1); Hemoglobin 14.8 g/dL (12.9-16.9); Immature Granulocytes % 0.4 % (0-4); Lymphocytes # 2.3 K/mcL (0.6-4.6); Lymphocytes % 33.6 %; Mean Corpuscular HGB Conc 33.8 g/dL (31.6-35.5); Mean Corpuscular Hemoglobin 31.5 pg (28.0-33.3); Mean Corpuscular Volume 93.2 fL (83.0-100.0); Mean Platelet Volume 11.4 fL (9.4-12.4); Monocytes # 0.5 K/mcL (0.0-1.3); Monocytes % 7.7 %; Platelet Count 191 K/mcL (140-400); Red Cell Distribution Width 11.7 % (11.5-14.5); Segmented Neutrophils % 56.7 %
[2017-09-02 15:36] LABS: BUN/Creatinine Ratio 8 (6-26); Blood Urea Nitrogen 8 mg/dL (8-26); Calcium 9.6 mg/dL (8.6-10.8); Carbon Dioxide 31 mEq/L (19-29); Chloride 102 mEq/L (98-109); Glucose 98 mg/dL (70-99); Osmolality,Calculated 290 (280-300); Potassium 3.7 mEq/L (3.5-4.5); Sodium 141 mEq/L (136-145); eGFR For African Americans > 60 (> 60); eGFR For Non-African Americans > 60 (> 60)
[2017-09-02] MEDS ORDERED: Naloxone 0.4 MG/ML INJ IVP PRN (18:06)
[2017-09-02] MEDS ORDERED: MOM Conc 10 ML UD.LIQ PO PRN (18:36)
[2017-09-02] MEDS ORDERED: Acetaminophen 325 MG TABLET PO PRN (18:36)
[2017-09-02] MEDS ORDERED: Ondansetron 4 MG/2 ML VIAL IVP PRN (18:36)
--- NOTE | 2017-09-02 18:59 | Internal Med History&Physical ---
<Francis Llanes - Last Filed: 09/02/17 18:56> Date of Encounter: 09/02/17 Time of Encounter: 18:30 Assessment and Plan (1) Atrial fibrillation with RVR Current visit: Yes Status: Acute A Fib w/ RVR on arrival, HR 160's Converted spontaneously to normal sinus rhythm Heart rate is currently resting in the 60s Patient experienced no chest pain, however he did have shortness of breath which has since resolved Patient recently started 12.5 mg Toprol, discontinued amiodarone due to medication toxicity CHADSVASC score 4, anticoagulation may be indication We will start the patient on lovenox Cardiology consulted from ED (2) Urinary frequency Current visit: Yes Status: Acute Urinary frequency, acute Present for 2 days, status post cystoscopy Patient is having no urinary symptoms at this time other than frequency We will check a urinalysis (3) Parkinson disease Current visit: Yes Status: Chronic Chronic Parkinson's, on hospice Mild dementia as noted in chart We will continue home medications (4) GERD (gastroesophageal reflux disease) Current visit: No Status: Acute Continue patient's PPI and H2 sailaja Qualifiers: Qualified Code(s): K21.9 - Gastro-esophageal reflux disease without esophagitis (5) DVT prophylaxis Current visit: Yes Status: Acute SQ Lovenox Internal Medicine - H&P: HPI Chief complaint: Shortness of Breath and fast heart beat Admitted From: Emergency Dept Plans for Post Hospital Care: Hospice - Home History of present illness: Mr. Li is a 82 year old male with history of Parkinson's disease on [facility], paroxysmal atrial fibrillation, CAD s/p 3 Stents, hematuria, GERD, anemia who presents to the ED for complaint of shortness of breath and fast heart rate for approximately one hour. He is accompanied by his who gives a majority of the history due to the soft-spoken nature of the patient. He was resting at home when he fell as she was beginning to be short of breath and experienced some diaphoresis, which point a hospice home health aide noted that the patient may be in atrial fibrillation. His heart rate was taken and apparently was around 120. The patient admits that he has had paroxysmal atrial fibrillation for 70 years, however he has previously been treated with amiodarone. Due to medication toxicity the patient discontinued his amiodarone approximately 2 weeks ago. He came to the ED about one week ago with similar problems of paroxysmal atrial fibrillation with rapid ventricular response at which time they started a beta sailaja. He denied any chest pains, back pains, nausea or vomiting, changes in level of consciousness, headache, changes in vision, dizziness. The patient does admit to urinary frequency which has been present for 2 days following a procedure done in the urology clinic outpatient which his believes was a cystoscopy. The patient had been experiencing hematuria in the months for but has not had any issues with this since. They deny fevers or chills. In the ED the patient received a chest x-ray which demonstrated no acute cardiopulmonary abnormality. EKG showed atrial fibrillation with a rate of 143. Initial troponin 0.01. Initial BNP 161. [id number] on admission is 4. We will admit to the floor with cardiac and O2 monitoring. Past Med Surg Social Fam HX - Past Medical History Medical history: atrial fibrillation, coronary artery disease, dementia, GERD, thyroid disease, other Psychiatric history: no psych history - Past Surgical History Surgical History: other - Social History Smoking Status: Never smoker Smokeless Tobacco Status: No Alcohol use: none Drug use: none - Family History Mother Living Status: Father Living Status: Internal Medicine - H&P: Meds Aspirin 81 mg PO QPM 11/27/15 [History] Clopidogrel [Plavix] 75 mg PO QTUTHSA 11/27/15 [History] Furosemide [Lasix] 20 mg PO Q48H 11/27/15 [History] Pantoprazole Sodium [Protonix] 40 mg PO DAILY 11/27/15 [History] Pramipexole Di-HCl [Pramipexole Dihydrochloride] 0.5 mg PO TID 11/27/15 [History ] Simvastatin [Zocor] 20 mg PO QPM 11/27/15 [History] Carbidopa/Levodopa [Carbidopa-Levodopa 25-100 Tab] 2 tab PO QID 08/21/17 [ History] Levothyroxine Sodium [Levoxyl] 112 mcg PO DAILY 08/21/17 [History] Metoprolol XL (24 HR) Succ [Toprol Xl] 12.5 mg PO DAILY #30 tab.er.24h 08/22/17 [Rx] Docusate [Colace] 100 mg PO BID 08/26/17 [History] Ergocalciferol (VITAMIN D2) [Vitamin D] 400 unit PO DAILY 08/26/17 [History] Loratadine [Claritin] 10 mg PO DAILY 08/26/17 [History] Ranitidine HCl [Acid Mixing Engineer] 75 mg PO Q48H 08/26/17 [History] 3 Allergy/AdvReac Type Severity Reaction Status Date / Time diphenhydramine Allergy See Verified 08/26/17 11:36 [From Benadryl] Comments - Constitutional Constitutional: excessive sweating, no chills, no fever(s), no night sweats, no weight gain - EENT Eyes: no change in vision, no discharge, no pain, no photophobia Ears: no ear discharge, no ear pain, no tinnitus Nose, mouth and throat: no dysphagia, no nasal discharge, no neck pain, no sore throat - Cardiovascular Cardiovascular ROS IM: diaphoresis, dyspnea, irregular heart rhythm, no chest pain, no lightheadedness, no palpitations, no syncope - Respiratory Respiratory: dyspnea, no cough, no wheezing, no excessive phlegm production - Gastrointestinal Gastrointestinal: no abdominal pain, no diarrhea, no hematemesis, no hematochezia, no melena, no nausea, no vomiting - Genitourinary Genitourinary ROS male: urinary frequency, no difficulty urinating, no dysuria, no hematuria - Musculoskeletal Musculoskeletal ROS IM: no numbness, no tingling - Integumentary Integumentary IM: no rash, no unusual bruising - Neurological Neurological ROS: numbness (chronic, managed by neurology), tingling, no confusion, no convulsions, no focal weakness, no headache(s), no tremor(s) - Psychiatric Psychiatric: no behavioral changes, no change in appetite, no confusion - Endocrine Endocrine IM: cold intolerance, no excessive sweating, no fatigue - Hematologic/Lymphatic Hematologic/Lymphatic: no easy bruising - Constitutional Vitals: Temp Pulse Resp BP Pulse Ox 98 F 61 16 110/66 97 09/02/17 14:56 09/02/17 17:35 09/02/17 18:08 09/02/17 18:08 09/02/17 17:35 General appearance: Present: A&O X 3, no acute distress - Head Head exam: Present: atraumatic, normocephalic - Eye Eye exam: Present: PERRL, conjuntiva pink, sclera anicteric Pupils: Present: PERRL - Neck Neck exam general surgery: Present: supple, trachea midline. Absent: lymphadenopathy - Respiratory Respiratory exam: Present: CTAB. Absent: accessory muscle use, rales, rhonchi, wheezes - Cardiovascular Cardiovascular exam: Present: RRR, +S1, +S2. Absent: diastolic murmur, gallop, rubs, systolic murmur - GI/Abdominal GI/Abdominal exam: Present: normal bowel sounds, soft, no peritoneal signs. Absent: distended, tenderness - Extremities Exam Extremities exam: Present: warm, radial pulses palpable and symmetrical. Absent : calf tenderness, cyanotic, pedal edema - Neurological Exam Neurological exam: Present: CN II-XII intact, oriented X3, no focal deficits. Absent: pronater drift, facial droop, speech deficit - Psychiatric Psychiatric exam: Present: flat affect - Skin Skin exam: Present: dry, intact Internal Med - H&P Results - Labs CBC & Chem 7: 09/02/17 15:05 09/02/17 15:05 <Kaleb Locke - Last Filed: 09/02/17 20:02> Date of Encounter: 09/02/17 Assessment and Plan (1) Paroxysmal atrial fibrillation Current visit: Yes Status: Acute (2) Parkinson disease Current visit: Yes Status: Chronic (3) Urinary frequency Current visit: Yes Status: Acute (4) Hypothyroidism (acquired) Current visit: No Status: Acute (5) GERD (gastroesophageal reflux disease) Current visit: No Status: Acute Qualifiers: Esophagitis presence: without esophagitis Qualified Code(s): K21.9 - Gastro -esophageal reflux disease without esophagitis (6) CAD (coronary artery disease) Current visit: No Status: Chronic Qualifiers: Coronary Disease-Associated Artery/Lesion type: [place] artery [place] vs. transplanted heart: [place] heart Associated angina: without angina Qualified Code(s): I25.10 - Atherosclerotic heart disease of [place] coronary artery without angina pectoris Internal Medicine - H&P: HPI History of present illness: Mr. Li is a 82 year old male All Systems PM: A 10-system review of systems was performed and is negative for pertinent findings except as documented above in the HPI. - Constitutional Vitals: Temp Pulse Resp BP Pulse Ox 98.3 F 66 14 136/94 95 09/02/17 19:39 09/02/17 19:39 09/02/17 19:39 09/02/17 19:39 09/02/17 19:39 Internal Med - H&P Results - Labs CBC & Chem 7: 09/02/17 15:05 09/02/17 15:05 Labs: Cardiac Enzymes 09/02/17 Range/Units 19:20 Troponin I 0.01 (0-0.03) ng/mL - Attending Attestation I examined this patient and my medical decision-making was reviewed with the Resident Physician on 09/02/17. I agree with the documented findings, disposition and treatment plan as described except to the extent set forth below. Mr Li is 82 y/o male with hx of a fib presented to ED with tachycardia and dyspnea. He stopped amiodarone 2 weeks ago. Has converted to NSR. No CP or SOB. No fever or chills. at bedside and said this is recurrent. Patient does not give much history. Exam Alert. Comfortable Slow movements and speech Mucus membranes dry Heart reg Lungs clear Abd soft and nontender Trace edema I/P 1 Parox afib 2 Parkinsons Further diagnoses and plan as above.
[2017-09-02] MEDS: Famotidine 20 MG TABLET PO SCH (22:27)
[2017-09-02] MEDS: Carbidopa/Levodopa 25/100 TABLET PO SCH (22:27)
[2017-09-02] MEDS: Furosemide 20 MG TABLET PO SCH (22:28)
[2017-09-03 00:26] LABS: Basophils % 0.5 %; Eosinophils # 0.1 K/mcL (0.0-0.6); Eosinophils % 0.8 %; Hematocrit 39.6 % (37.5-50.1); Hemoglobin 13.5 g/dL (12.9-16.9); Immature Granulocytes % 0.3 % (0-4); Lymphocytes # 2.1 K/mcL (0.6-4.6); Lymphocytes % 27.9 %; Mean Corpuscular HGB Conc 34.1 g/dL (31.6-35.5); Mean Corpuscular Hemoglobin 31.4 pg (28.0-33.3); Mean Corpuscular Volume 92.1 fL (83.0-100.0); Mean Platelet Volume 11.2 fL (9.4-12.4); Monocytes # 0.5 K/mcL (0.0-1.3); Monocytes % 7.3 %; Neutrophils # 4.7 K/mcL (1.6-8.9); Platelet Count 191 K/mcL (140-400); Red Cell Distribution Width 11.7 % (11.5-14.5); Segmented Neutrophils % 63.2 %
[2017-09-03 00:44] LABS: Albumin 3.6 g/dL (3.5-5.0); Albumin/Globulin Ratio 1.2 (1.1-2.2); Alkaline Phosphatase 70 Units/L (38-126); Aspartate Amino Transferase 13 Units/L (5-34); BUN/Creatinine Ratio 11 (6-26); Bilirubin,Total 0.4 mg/dL (0.2-1.2); Blood Urea Nitrogen 10 mg/dL (8-26); Calcium 9.3 mg/dL (8.6-10.8); Carbon Dioxide 30 mEq/L (19-29); Chloride 103 mEq/L (98-109); Globulin 2.9 g/dL (2.4-3.5); Glucose 100 mg/dL (70-99); Osmolality,Calculated 287 (280-300); Potassium 3.8 mEq/L (3.5-4.5); Sodium 139 mEq/L (136-145); Total Protein 6.5 g/dL (6.0-8.3); eGFR For African Americans > 60 (> 60); eGFR For Non-African Americans > 60 (> 60)
[2017-09-03 00:45] LABS: Alanine Aminotransferase < 6 Units/L (0-55)
[2017-09-03] MEDS: *HR* Enoxaparin 80 MG/0.8 ML SYRINGE SQ SCH ×2 (05:56→17:03)
[2017-09-03] MEDS: Cholecalciferol (D-3) 1,000 UNIT TABLET PO SCH (08:19)
[2017-09-03] MEDS: Loratadine 10 MG TABLET PO SCH (08:19)
[2017-09-03] MEDS: Carbidopa/Levodopa 25/100 TABLET PO SCH ×4 (08:20→21:54)
[2017-09-03] MEDS ORDERED: Metoprolol XL (24 HR) Succ 25 MG TAB.ER.24H PO SCH (09:00)
--- NOTE | 2017-09-03 14:43 | Cardiology Consult Note ---
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 Since stopping Amiodarone, has had 2 admissions for PAF--palpitations and dyspnea. A-Fib HR 140s on admission, quickly converted back to SR. HR low 60s SR, on Toprol XL 12.5mg daily. wishes to pursue another antiarrhythmic--states it was mentioned by Dr. Delgado as well. Hx of CAD. Not anticoagulated due to hx of GI bleed, but currently in SR. Discussed with Dr. Salcido, recommends Sotalol 80mg BID. Will stop Toprol since HR is low 60s. Baseline EKG SR 09/02/17--HR 79, QRS 94ms, QT/QTc 357/391ms. Will need daily EKGs to monitor QTc. Will need monitored for 5 doses, starting first dose tonight. Normal renal function. No recent ischemic eval, but known hx of CAD and no anginal symptoms. Dr. Salcido okay proceeding without ischemic eval on Sotalol. Limited echo 08/04/17 EF 60-65%. Continue to follow. (2) CAD (coronary artery disease) Current Visit: No Status: Chronic Hx of PCI. ASA, Statin, Plavix, BB, ACEi. Qualifiers: Coronary Disease-Associated Artery/Lesion type: [place] artery [place] vs. transplanted heart: [place] heart Associated angina: without angina Qualified Code(s): I25.10 - Atherosclerotic heart disease of [place] coronary artery without angina pectoris Discussion w patient/family: The assessment and plan as outlined above was discussed with the patient and/or family members who expressed understanding and agreement. All questions were answered. Thank you for involving us in the care of your patient. Please call with any questions. History of Present Illness Consult date: 09/03/17 Requesting physician: Kaleb Locke Consult reason: PAF Chief complaint: palpitations History of present illness: Mr. Li is a 82 year old male with a relevant past medical history of dementia , Parkinson's disease, paroxysmal Atrial fibrillation, CAD s/p PCI, hypothyroidism, GERD. Patient recently seen by Dr. Delgado with cardiology in July 2017. 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 Since stopping Amiodarone, he has had 2 admissions for PAF. Yesterday, he developed dyspnea and palpitations, found to be in A-Fib RVR HR 150s, but since converted back to SR, HR currently 60s. Pt denies chest pain. Per pt and , trying a different antiarrhythmic was mentioned by Dr. Delgado. He is not anticoagulated--previously on Coumadin, stopped due to GI bleed. Cardiology consult to evaluate potential antiarrhythmic therapy for recurrent paroxysmal atrial fibrillation. Limited echo 08/04/17 EF 60-65%. Past Med Surg Social Fam HX - Past Medical History Medical history: atrial fibrillation, coronary artery disease, dementia, GERD, thyroid disease, other Psychiatric history: no psych history - Past Surgical History Surgical History: other - Social History Smoking Status: Never smoker Smokeless Tobacco Status: No Alcohol use: none Drug use: none - Family History Mother Living Status: Father Living Status: Medications and Allergies Aspirin 81 mg PO QPM 11/27/15 [History] Clopidogrel [Plavix] 75 mg PO QTUTHSA 11/27/15 [History] Furosemide [Lasix] 20 mg PO Q48H 11/27/15 [History] Pantoprazole Sodium [Protonix] 40 mg PO DAILY 11/27/15 [History] Pramipexole Di-HCl [Pramipexole Dihydrochloride] 0.5 mg PO TID 11/27/15 [History ] Simvastatin [Zocor] 20 mg PO QPM 11/27/15 [History] Carbidopa/Levodopa [Carbidopa-Levodopa 25-100 Tab] 2 tab PO QID 08/21/17 [ History] Levothyroxine Sodium [Levoxyl] 112 mcg PO DAILY 08/21/17 [History] Metoprolol XL (24 HR) Succ [Toprol Xl] 12.5 mg PO DAILY #30 tab.er.24h 08/22/17 [Rx] Docusate [Colace] 100 mg PO BID 08/26/17 [History] Ergocalciferol (VITAMIN D2) [Vitamin D] 400 unit PO DAILY 08/26/17 [History] Loratadine [Claritin] 10 mg PO DAILY 08/26/17 [History] Ranitidine HCl [Acid Inspector Precision Assembly] 75 mg PO Q48H 08/26/17 [History] 3 Allergy/AdvReac Type Severity Reaction Status Date / Time diphenhydramine Allergy See Verified 08/26/17 11:36 [From Eris] Comments All Systems Review: A 10-system review of systems was performed and is negative for pertinent findings except as documented above in the HPI. - Cardiovascular Cardiovascular: as per HPI, dyspnea at rest, dyspnea on exertion, palpitations - Respiratory Respiratory: dyspnea Physical Examination Vital Signs Temp Pulse Resp BP Pulse Ox 09/03/17 10:38 97.6 F 86 12 113/69 95 09/03/17 06:30 97.7 F 60 12 125/68 93 09/03/17 05:51 98.9 F 60 16 129/70 96 09/02/17 22:25 95 09/02/17 19:39 98.3 F 66 14 136/94 95 09/02/17 18:08 16 110/66 09/02/17 17:35 61 16 114/68 97 09/02/17 16:45 78 18 121/73 97 09/02/17 15:26 78 18 116/79 96 09/02/17 15:03 94 09/02/17 14:56 98 F 128 18 106/76 95 Intake and Output 09/02/17 09/03/17 09/03/17 23:59 07:59 15:59 Intake Total 360 / 360 Output Total 75 / 75 400 / 400 Balance -75 / -75 -40 / -40 Intake: Oral 360 / 360 Output: Urine 75 / 75 400 / 400 Other: Meal Lunch Percent of Meal Consumed 100% Stool Size Moderate Stool Consistency soft formed # Voids 1 # Bowel Movements 1 General: Conversant, No Apparent Distress HEENT: Atraumatic, Normocephaly, Mucus Membranes Moist Neck: No JVD, Normal carotid pulses Cardiac: Reg Rate and Rhythm, Normal S1 and S2, No Murmur Lungs: Normal Breath Sounds, No Wheeze, Rales, Rhonchi Neuro: Alert and responsive, No focal deficits noted Abdomen: Soft, Non-Tender Skin: No rashes noted on visualized skin Musculoskeletal: No Chest Wall Tenderness Extremities: No Clubbing, No Cyanosis, No Edema, Normal Pulses Results 09/03/17 00:19 09/03/17 00:19 Lab Results 09/02/17 09/03/17 09/03/17 19:20 00:19 00:19 WBC 7.4 Hgb 13.5 Hct 39.6 Plt Count 191 Sodium Potassium Chloride Carbon Dioxide BUN Creatinine Glucose Calcium Total Bilirubin AST ALT Alkaline Phosphatase Troponin I 0.01 0.02 09/03/17 09/03/17 00:19 06:37 WBC Hgb Hct Plt Count Sodium 139 Potassium 3.8 Chloride 103 Carbon Dioxide 30 H BUN 10 Creatinine 0.87 Glucose 100 H Calcium 9.3 Total Bilirubin 0.4 AST 13 ALT < 6 Alkaline Phosphatase 70 Troponin I 0.01 Short CBC 09/03/17 09/02/17 Range/Units 00:19 15:05 WBC 7.4 7.0 (4.3-11.1) K/mcL Hgb 13.5 14.8 (12.9-16.9) g/dL Hct 39.6 43.8 (37.5-50.1) % Plt Count 191 191 (140-400) K/mcL Neutrophils # 4.7 4.0 (1.6-8.9) K/mcL BMP 09/03/17 09/02/17 Range/Units 00:19 15:05 Sodium 139 141 (136-145) mEq/L Potassium 3.8 3.7 (3.5-4.5) mEq/L Chloride 103 102 (98-109) mEq/L Carbon Dioxide 30 H 31 H (19-29) mEq/L BUN 10 8 (8-26) mg/dL Creatinine 0.87 0.98 (0.72-1.25) mg/dL Glucose 100 H 98 (70-99) mg/dL Calcium 9.3 9.6 (8.6-10.8) mg/dL Cardiac Enzymes 09/03/17 09/03/17 09/02/17 Range/Units 06:37 00:19 19:20 Troponin I 0.01 0.02 0.01 (0-0.03) ng/mL 09/02/17 Range/Units 15:05 Troponin I 0.01 (0-0.03) ng/mL Liver Function 09/03/17 Range/Units 00:19 Total Bilirubin 0.4 (0.2-1.2) mg/dL AST 13 (5-34) Units/L ALT < 6 (0-55) Units/L Alkaline Phosphatase 70 (38-126) Units/L Albumin 3.6 (3.5-5.0) g/dL Impressions Chest X-Ray 09/02/17 14:58 IMPRESSION: No acute cardiopulmonary abnormality. D/ / Addy Forrest MD / Addy Forrest MD Interpreting Provider: Addy Forrest MD Active Medications Acetaminophen (Tylenol) 650 mg PO Q6HR PRN PRN Reason: Mild Pain (1-3) Stop: 03/04/18 18:37 Hydrocodone Bitart/Acetaminophen ([place] 5-325 Mg) 1 tab PO Q4HR PRN PRN Reason: Moderate Pain (4-6) Stop: 03/04/18 18:37 Aspirin (Aspirin) 81 mg PO QPM [facility] Stop: 03/05/18 18:01 Carbidopa/Levodopa (Sinemet) 2 each PO QID [facility] Stop: 03/04/18 21:01 Last Admin: 09/03/17 08:20 Dose: 2 each Clopidogrel Bisulfate (Plavix) 75 mg PO QTUTHSA [facility] Stop: 03/05/18 09:01 Last Admin: 09/03/17 08:19 Dose: 75 mg Docusate Sodium (Colace) 100 mg PO BID PRN PRN Reason: Constipation Stop: 03/04/18 18:37 Docusate Sodium (Colace) 100 mg PO BID [facility] PRN Reason: Protocol Stop: 03/04/18 21:01 Last Admin: 09/03/17 08:20 Dose: 100 mg Enoxaparin Sodium (Lovenox) 80 mg SQ Q12HCO SRINI PRN Reason: Protocol Stop: 03/05/18 06:01 Last Admin: 09/03/17 05:56 Dose: 80 mg Famotidine (Pepcid) 10 mg PO Q48H [facility] Stop: 03/04/18 19:01 Last Admin: 09/02/17 22:27 Dose: 10 mg Furosemide (Lasix) 20 mg PO Q48H [facility] Stop: 03/04/18 19:01 Last Admin: 09/02/17 22:28 Dose: Not Given Levothyroxine Sodium (Synthroid) 112 mcg PO DAILY [facility] Stop: 03/05/18 09:01 Last Admin: 09/03/17 08:19 Dose: 112 mcg Lisinopril (Zestril) 2.5 mg PO DAILY [facility] PRN Reason: Protocol Stop: 03/05/18 09:01 Last Admin: 09/03/17 08:20 Dose: 2.5 mg Loratadine (Claritin) 10 mg PO DAILY [facility] Stop: 03/05/18 09:01 Last Admin: 09/03/17 08:19 Dose: 10 mg Magnesium Hydroxide (Milk Of Magnesia Conc) 10 ml PO DAILY PRN PRN Reason: Indigestion Stop: 03/04/18 18:37 Metoprolol Succinate (Toprol Xl) 12.5 mg PO DAILY [facility] Stop: 03/05/18 09:01 Last Admin: 09/03/17 08:18 Dose: 12.5 mg Naloxone HCl (Narcan) 0.4 mg IVP Q2MIN PRN PRN Reason: Opioid Reversal Stop: 03/04/18 18:07 Omeprazole (Prilosec) 20 mg PO DAILY@0730 [facility] PRN Reason: Protocol Stop: 03/05/18 07:31 Last Admin: 09/03/17 08:19 Dose: 20 mg Ondansetron HCl (Zofran) 4 mg IVP Q8HR PRN PRN Reason: Nausea And Vomiting Stop: 03/04/18 18:37 Pramipexole Dihydrochloride (Mirapex) 0.5 mg PO TID [facility] Stop: 03/04/18 21:01 Last Admin: 09/03/17 08:19 Dose: 0.5 mg Simvastatin (Zocor) 20 mg PO QPM [facility] PRN Reason: Protocol Stop: 03/05/18 18:01 Vitamin D (Vitamin D) 500 unit PO DAILY [facility] Stop: 03/05/18 09:01 Last Admin: 09/03/17 08:19 Dose: 500 unit - Imaging and Cardiology Echo: report reviewed - EKG Interpretation EKG results cardiology: personally reviewed, other (12 hr tele AVG HR 60, SR) Consult Discharge Plan - Plan Referrals: Selina Laws MD [Primary Care Provider] -
--- NOTE | 2017-09-03 16:10 | Internal Med Progress Note ---
Date of Encounter: 09/03/17 Time of Encounter: 12:30 - Assessment and plan (1) Paroxysmal atrial fibrillation Current Visit: Yes Status: Acute Assessment and plan: Recurrent. To start on Sotalol tonight. Will be here through Tuesday. (2) Parkinson disease Current Visit: Yes Status: Chronic Assessment and plan: Continue home medications. (3) Urinary frequency Current Visit: Yes Status: Chronic Assessment and plan: Following. (4) Hypothyroidism (acquired) Current Visit: No Status: Chronic Assessment and plan: Continue med. (5) GERD (gastroesophageal reflux disease) Current Visit: No Status: Chronic Assessment and plan: Continue home meds. Qualifiers: Esophagitis presence: without esophagitis Qualified Code(s): K21.9 - Gastro -esophageal reflux disease without esophagitis (6) CAD (coronary artery disease) Current Visit: No Status: Chronic Assessment and plan: Continue home meds. Qualifiers: Coronary Disease-Associated Artery/Lesion type: [place] artery [place] vs. transplanted heart: [place] heart Associated angina: without angina Qualified Code(s): I25.10 - Atherosclerotic heart disease of [place] coronary artery without angina pectoris - Subjective Interval history: Mr Li is currently in observation for recurrent parox a fib with RVR. He remains moderate to high risk. Mr Li feels OK. No CP or SOB at this time. No fever or chills. No GI issues. Remains in sinus rhythm. - Constitutional Vitals: Temp Pulse Resp BP Pulse Ox 98.2 F 75 12 110/59 92 09/03/17 15:02 09/03/17 15:02 09/03/17 15:02 09/03/17 15:02 09/03/17 15:02 General appearance: Present: A&O X 3 - Head Head exam: Present: normocephalic - Eye Eye exam: Present: conjuntiva pink - ENT ENT exam: Present: mucous membranes dry - Respiratory Respiratory exam: Present: decreased breath sounds, CTAB. Absent: rhonchi, wheezes - Cardiovascular Cardiovascular exam: Present: RRR. Absent: tachycardia - GI/Abdominal GI/Abdominal exam: Present: normal bowel sounds, soft. Absent: tenderness - Extremities Exam Extremities exam: Present: warm. Absent: tenderness - Neurological Exam Neurological exam: Present: alert, oriented X3 Additional comments: Very slow. - Skin Skin exam: Present: warm. Absent: rash Internal Medicine: Result - Labs CBC & Chem 7: 09/03/17 00:19 09/03/17 00:19 Labs: Short CBC 09/03/17 Range/Units 00:19 WBC 7.4 (4.3-11.1) K/mcL Hgb 13.5 (12.9-16.9) g/dL Hct 39.6 (37.5-50.1) % Plt Count 191 (140-400) K/mcL Neutrophils # 4.7 (1.6-8.9) K/mcL BMP 09/03/17 00:19 Sodium 139 Potassium 3.8 Chloride 103 Carbon Dioxide 30 H BUN 10 Creatinine 0.87 Glucose 100 H Calcium 9.3 Cardiac Enzymes 09/02/17 09/03/17 09/03/17 Range/Units 19:20 00:19 06:37 Troponin I 0.01 0.02 0.01 (0-0.03) ng/mL Liver Function 09/03/17 Range/Units 00:19 Total Bilirubin 0.4 (0.2-1.2) mg/dL AST 13 (5-34) Units/L ALT < 6 (0-55) Units/L Alkaline Phosphatase 70 (38-126) Units/L Albumin 3.6 (3.5-5.0) g/dL Consult Discharge Plan - Plan Referrals: Selina Laws MD [Primary Care Provider] -
[2017-09-03] MEDS: Aspirin 81 MG TAB.CHEW PO SCH (16:47)
[2017-09-04] MEDS: *HR* Enoxaparin 80 MG/0.8 ML SYRINGE SQ SCH ×2 (06:37→17:51)
[2017-09-04] MEDS: Loratadine 10 MG TABLET PO SCH (09:49)
[2017-09-04] MEDS: Carbidopa/Levodopa 25/100 TABLET PO SCH ×5 (09:49→21:15)
[2017-09-04] MEDS: Cholecalciferol (D-3) 1,000 UNIT TABLET PO SCH (09:49)
--- NOTE | 2017-09-04 13:43 | Cardiology Progress Note ---
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 Since stopping Amiodarone, has had 2 admissions for PAF--palpitations and dyspnea. A-Fib HR 140s on admission, quickly converted back to SR. Toprol XL stopped 09/04/17. Sotalol 80 mg BID started 09/04/17. S/p two doses. Telemetry overnight showed sinus bradycardia with pauses up to 2 seconds. Avg HR was 56 bpm. HR noted to be in the 30's during nocturnal hours. HR 46 on my exam while patient was eating. Denies dizziness or lightheadedness. Not anticoagulant due to hx of GI bleed, but currently in SR. Baseline EKG SR 09/02/17--HR 79, QRS 94ms, QT/QTc 357/391ms. Will need daily EKGs to monitor QTc. Will need monitored for 5 doses, starting first dose tonight. EKG this am prior to second dose shows sinus bradycardia, HR 58. QT /QTc 459/ 424. Limited echo 08/04/17 EF 60-65%. Discussed with Dr. Salcido, decrease sotalol to 40 mg every 12 hours due to bradycardia. Continue to monitor. (3) CAD (coronary artery disease) Current Visit: No Status: Chronic Hx of PCI. ASA, Statin, Plavix, BB, ACEi. Qualifiers: Coronary Disease-Associated Artery/Lesion type: [place] artery [place] vs. transplanted heart: [place] heart Associated angina: without angina Qualified Code(s): I25.10 - Atherosclerotic heart disease of [place] coronary artery without angina pectoris Discussion w patient/family: The assessment and plan as outlined above was discussed with the patient and/or family members who expressed understanding and agreement. All questions were answered. Thank you for involving us in the care of your patient. Please call with any questions. Subjective Principal diagnosis: atrial fibrillation Interval history: Patient resting in bed. Daughter in-law at his bedside. No complaints. No events overnight. Denies dizziness or lightheadedness. Objective Vital Signs, Last 4 Hours Temp Pulse Resp BP Pulse Ox 09/04/17 10:26 97.8 F 51 12 121/62 94 General: No Apparent Distress, Other (Answers yes and no. Slow to respond. ) HEENT: Atraumatic, Normocephaly, Mucus Membranes Moist Neck: No JVD, Normal carotid pulses Cardiac: Reg Rate and Rhythm, Normal S1 and S2, No Murmur Lungs: Normal Breath Sounds, No Wheeze, Rales, Rhonchi Neuro: Alert and responsive, No focal deficits noted Abdomen: Soft, Non-Tender Skin: No rashes noted on visualized skin Musculoskeletal: No Chest Wall Tenderness, Other (generalized weakness noted.) Extremities: No Clubbing, No Cyanosis, No Edema, Normal Pulses Results 09/03/17 00:19 09/03/17 00:19 - EKG Interpretation EKG results cardiology: personally reviewed Consult Discharge Plan - Plan Referrals: Selina Laws MD [Primary Care Provider] -
--- NOTE | 2017-09-04 14:11 | Internal Med Progress Note ---
Date of Encounter: 09/04/17 Time of Encounter: 10:30 - Assessment and plan (1) Paroxysmal atrial fibrillation Current Visit: Yes Status: Acute Assessment and plan: Started on Sotalol yesterday. Has been bradycardic. Dose decreased today. Will remain in hospital for 5 doses so anticipate d/c late Tuesday or Tuesday. (2) Parkinson disease Current Visit: Yes Status: Chronic Assessment and plan: Continue home medications. (3) Hypothyroidism (acquired) Current Visit: No Status: Chronic Assessment and plan: Continue med. (4) GERD (gastroesophageal reflux disease) Current Visit: No Status: Chronic Assessment and plan: Continue home meds. Qualifiers: Esophagitis presence: without esophagitis Qualified Code(s): K21.9 - Gastro -esophageal reflux disease without esophagitis (5) CAD (coronary artery disease) Current Visit: No Status: Chronic Assessment and plan: Continue home meds. Qualifiers: Coronary Disease-Associated Artery/Lesion type: [place] artery [place] vs. transplanted heart: [place] heart Associated angina: without angina Qualified Code(s): I25.10 - Atherosclerotic heart disease of [place] coronary artery without angina pectoris - Subjective Interval history: Mr Li is currently in observation for recurrent parox a fib with RVR. He remains moderate to high risk. Mr Li has no complaints. No CP or SOB. No fever or chills. Has been bradycardic since starting Sotalol and dose decreased today. - Constitutional Vitals: Temp Pulse Resp BP Pulse Ox 97.8 F 51 12 121/62 94 09/04/17 10:26 09/04/17 10:26 09/04/17 10:26 09/04/17 10:26 09/04/17 10:26 General appearance: Present: A&O X 3 - Head Head exam: Present: normocephalic - Eye Eye exam: Present: conjuntiva pink - ENT ENT exam: Present: mucous membranes moist - Respiratory Respiratory exam: Present: decreased breath sounds, CTAB - Cardiovascular Cardiovascular exam: Present: bradycardia Additional comments: Regular and bradycardic - GI/Abdominal GI/Abdominal exam: Present: soft. Absent: tenderness - Extremities Exam Extremities exam: Present: warm. Absent: tenderness - Neurological Exam Additional comments: Slow responses - Skin Skin exam: Present: warm. Absent: rash Internal Medicine: Result - Labs CBC & Chem 7: 09/03/17 00:19 09/03/17 00:19 Consult Discharge Plan - Plan Referrals: Selina Laws MD [Primary Care Provider] -
[2017-09-04] MEDS: Furosemide 20 MG TABLET PO SCH (17:50)
[2017-09-04] MEDS: Aspirin 81 MG TAB.CHEW PO SCH (17:50)
[2017-09-04] MEDS: Famotidine 20 MG TABLET PO SCH (17:50)
--- NOTE | 2017-09-04 18:17 | Electrocardiograph Report ---
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
--- NOTE | 2017-09-04 18:19 | Electrocardiograph Report ---
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
[2017-09-05 03:57] LABS: Hematocrit 38.7 % (37.5-50.1); Hemoglobin 12.6 g/dL (12.9-16.9); Mean Corpuscular HGB Conc 32.6 g/dL (31.6-35.5); Mean Corpuscular Hemoglobin 31.1 pg (28.0-33.3); Mean Corpuscular Volume 95.6 fL (83.0-100.0); Mean Platelet Volume 11.6 fL (9.4-12.4); Platelet Count 150 K/mcL (140-400); Red Blood Count 4.05 M/mcL (4.19-5.50); Red Cell Distribution Width 11.8 % (11.5-14.5)
[2017-09-05 04:11] LABS: BUN/Creatinine Ratio 16 (6-26); Blood Urea Nitrogen 17 mg/dL (8-26); Calcium 8.9 mg/dL (8.6-10.8); Carbon Dioxide 25 mEq/L (19-29); Chloride 103 mEq/L (98-109); Glucose 76 mg/dL (70-99); Magnesium 1.7 mg/dL (1.6-2.6); Osmolality,Calculated 284 (280-300); Potassium 3.9 mEq/L (3.5-4.5); Sodium 137 mEq/L (136-145); eGFR For African Americans > 60 (> 60); eGFR For Non-African Americans > 60 (> 60)
[2017-09-05] MEDS: *HR* Enoxaparin 80 MG/0.8 ML SYRINGE SQ SCH ×2 (06:04→18:13)
[2017-09-05] MEDS: Loratadine 10 MG TABLET PO SCH (08:44)
[2017-09-05] MEDS: Carbidopa/Levodopa 25/100 TABLET PO SCH ×4 (08:44→19:46)
[2017-09-05] MEDS: Cholecalciferol (D-3) 1,000 UNIT TABLET PO SCH (08:45)
[2017-09-05] MEDS ORDERED: NON-FORMULARY MEDICATION 1 EACH EACH (Pantoprazole Sodium [Protonix] 40 MG) PO SCH (09:00)
--- NOTE | 2017-09-05 11:15 | Internal Med Progress Note ---
<Indra Moses - Last Filed: 09/05/17 14:18> Date of Encounter: 09/05/17 Time of Encounter: 09:00 - Assessment and plan (1) Paroxysmal atrial fibrillation Current Visit: Yes Status: Acute Assessment and plan: - A-fib RVR with rate of 140s on admission. - Spontaneous conversion to NSR. - Not anticoagulated given history of GI bleed. - On Sotalol since 09/04/17. Per cardiology, last dose will be given tonight and only hold if heart rate < 40. - Continue telemetry monitoring. - Plan to discharge home tomorrow. (2) Parkinson disease Current Visit: Yes Status: Chronic Assessment and plan: - Continue Sinemet. (3) Hypothyroidism (acquired) Current Visit: No Status: Chronic Assessment and plan: - Continue Synthroid. (4) GERD (gastroesophageal reflux disease) Current Visit: No Status: Chronic Assessment and plan: - Continue omeprazole. Qualifiers: Esophagitis presence: without esophagitis Qualified Code(s): K21.9 - Gastro -esophageal reflux disease without esophagitis (5) CAD (coronary artery disease) Current Visit: No Status: Chronic Assessment and plan: - Continue aspirin, simvastatin, lisinopril. Qualifiers: Coronary Disease-Associated Artery/Lesion type: [place] artery [place] vs. transplanted heart: [place] heart Associated angina: without angina Qualified Code(s): I25.10 - Atherosclerotic heart disease of [place] coronary artery without angina pectoris - Subjective Interval history: Patient was seen and examined this morning. Patient reports doing fine and denies palpitation, chest pain, shortness of breath, diaphoresis. - Constitutional Vitals: Temp Pulse Resp BP Pulse Ox 98.3 F 61 16 119/79 95 09/05/17 07:12 09/05/17 07:12 09/05/17 07:12 09/05/17 08:43 09/05/17 07:12 General appearance: Present: no acute distress Exam: Flat affect with very slow response. - Head Head exam: Present: atraumatic, normocephalic - Eye Eye exam: Present: EOMI, sclera anicteric - ENT ENT exam: Present: mucous membranes dry - Neck Neck exam general surgery: Present: normal inspection, supple, trachea midline - Respiratory Respiratory exam: Present: CTAB. Absent: rales, rhonchi, wheezes - Cardiovascular Cardiovascular exam: Present: bradycardia - GI/Abdominal GI/Abdominal exam: Present: diminished bowel sounds, soft. Absent: tenderness - Extremities Exam Extremities exam: Present: normal inspection. Absent: cyanotic, pedal edema - Neurological Exam Neurological exam: Present: alert. Absent: pronater drift, facial droop - Skin Skin exam: Present: dry, warm Internal Medicine: Result - Labs CBC & Chem 7: 09/05/17 02:28 09/05/17 02:28 Labs: Short CBC 09/05/17 Range/Units 02:28 WBC 7.8 (4.3-11.1) K/mcL Hgb 12.6 L (12.9-16.9) g/dL Hct 38.7 (37.5-50.1) % Plt Count 150 (140-400) K/mcL BMP 09/05/17 02:28 Sodium 137 Potassium 3.9 Chloride 103 Carbon Dioxide 25 BUN 17 Creatinine 1.04 Glucose 76 Calcium 8.9 Consult Discharge Plan - Plan Referrals: Selina Laws MD [Primary Care Provider] - 09/15/17 10:20 am Julius Delgado MD [Partnered Physician] - 09/16/17 11:00 am <Kaleb Locke A - Last Filed: 09/05/17 15:23> Date of Encounter: 09/05/17 - Assessment and plan (1) Paroxysmal atrial fibrillation Current Visit: Yes Status: Acute (2) Parkinson disease Current Visit: Yes Status: Chronic (3) Hypothyroidism (acquired) Current Visit: No Status: Chronic (4) GERD (gastroesophageal reflux disease) Current Visit: No Status: Chronic Qualifiers: Esophagitis presence: without esophagitis Qualified Code(s): K21.9 - Gastro -esophageal reflux disease without esophagitis (5) CAD (coronary artery disease) Current Visit: No Status: Chronic Qualifiers: Coronary Disease-Associated Artery/Lesion type: [place] artery [place] vs. transplanted heart: [place] heart Associated angina: without angina Qualified Code(s): I25.10 - Atherosclerotic heart disease of [place] coronary artery without angina pectoris - Constitutional Vitals: Temp Pulse Resp BP Pulse Ox 97.9 F 45 16 91/53 94 09/05/17 11:22 09/05/17 11:50 09/05/17 11:22 09/05/17 11:50 09/05/17 11:22 Internal Medicine: Result - Labs CBC & Chem 7: 09/05/17 02:28 09/05/17 02:28 Labs: Short CBC 09/05/17 Range/Units 02:28 WBC 7.8 (4.3-11.1) K/mcL Hgb 12.6 L (12.9-16.9) g/dL Hct 38.7 (37.5-50.1) % Plt Count 150 (140-400) K/mcL BMP 09/05/17 02:28 Sodium 137 Potassium 3.9 Chloride 103 Carbon Dioxide 25 BUN 17 Creatinine 1.04 Glucose 76 Calcium 8.9 - Attending Attestation I examined this patient and my medical decision-making was reviewed with the Resident Physician on 09/05/17. I agree with the documented findings, disposition and treatment plan as described except to the extent set forth below. Mr Li is currently in observation for parox a fib. He is now on Sotalol therapy. His dose was decreased yesterday and his heartrate is improved. He remains moderate to high risk due to potential for worsening cardiac status. Mr Weiss feels OK. No fever or chills. No CP or SOB. Appetite OK. Last Sotalol dose is tonight and his would like his heart rate monitored overnight tonight. Exam Alert. comfortable Mucus membranes dry Heart reg No wheeze Abd soft No edema I/P 1. Parox a fib 2. Parkinsons Further diagnoses and plan as above Anticipate d/c tomorrow AM.
--- NOTE | 2017-09-05 11:53 | Electrophysiology Consult Note ---
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 Since stopping Amiodarone, has had 2 admissions for PAF--palpitations and dyspnea. A-Fib HR 140s on admission, quickly converted back to SR. Toprol XL stopped 09/04/17. Sotalol 80 mg BID started 09/04/17. S/p two doses. Dose then decreased to 40mg BID due to HR noted to be in the 30's during nocturnal hours. 12 hr tele AVG HR 50, lowest HR noted to be 45, longest pause 2.1 seconds. Not anticoagulated due to hx of GI bleed, but currently in SR. Baseline EKG SR 09/02/17--HR 79, QRS 94ms, QT/QTc 357/391ms. Daily EKGs to monitor QTc. Will need monitored for 5 doses, 5th dose will be tonight. EKG 10 AM sinus bradycardia, HR 58. QT /QTc 459/424ms. EKG 10/ AM sinus bradycardia, HR 48. QT/QTc 446/412ms. Limited echo 08/04/17 EF 60-65%. I will discuss all the above with Dr. Sandro Marcelo and make changes as necessary. Will continue current plan. Hold Sotalol if HR <40bpm. 5th dose will be tonight. If HR is tolerating and pt is maintaining SR, anticipate sign off tomorrow. (2) CAD (coronary artery disease) Current Visit: No Status: Chronic Hx of PCI. ASA, Statin, Plavix, BB, ACEi. Qualifiers: Coronary Disease-Associated Artery/Lesion type: [place] artery [place] vs. transplanted heart: [place] heart Associated angina: without angina Qualified Code(s): I25.10 - Atherosclerotic heart disease of [place] coronary artery without angina pectoris Discussion w patient/family: The assessment and plan as outlined above was discussed with the patient and/or family members who expressed understanding and agreement. All questions were answered. Thank you for involving us in the care of your patient. Please call with any questions. I will discuss all the above with Dr. Sandro Marcelo and make changes as necessary. History of Present Illness Consult date: 09/05/17 Requesting physician: Linn Duncan Consult reason: A-Fib, Sotalol History of present illness: Mr. Li is a 82 year old male with a relevant past medical history of dementia , Parkinson's disease, paroxysmal Atrial fibrillation, CAD s/p PCI, hypothyroidism, GERD. Patient recently seen by Dr. Delgado with cardiology in July 2017. 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 Since stopping Amiodarone, he has had 2 admissions for PAF. Day of admission, he developed dyspnea and palpitations, found to be in A-Fib RVR HR 150s, but since converted back to SR. Pt denies chest pain. Per pt and , trying a different antiarrhythmic was mentioned by Dr. Delgado. He is not anticoagulated--previously on Coumadin, stopped due to GI bleed. Pt was seen by general cardiology, started on Sotalol 80mg BID, but became bradycardia after 2 doses with HR 30s during nocturnal hours. Sotalol dose decreased to 40mg BID yesterday--has received 4 total doses of Sotalol, maintaining SR. EP consulted for further recommendations. Pt currently denies any complaints, denies dizziness or lightheadedness. Limited echo 08/04/17 EF 60-65%. Past Med Surg Social Fam HX - Past Medical History Medical history: atrial fibrillation, coronary artery disease, dementia, GERD, thyroid disease, other Psychiatric history: no psych history - Past Surgical History Surgical History: other - Social History Smoking Status: Never smoker Smokeless Tobacco Status: No Alcohol use: none Drug use: none - Family History Mother Living Status: Father Living Status: Medications and Allergies Aspirin 81 mg PO QPM 11/27/15 [History] Clopidogrel [Plavix] 75 mg PO QTUTHSA 11/27/15 [History] Furosemide [Lasix] 20 mg PO Q48H 11/27/15 [History] Pantoprazole Sodium [Protonix] 40 mg PO DAILY 11/27/15 [History] Pramipexole Di-HCl [Pramipexole Dihydrochloride] 0.5 mg PO TID 11/27/15 [History ] Simvastatin [Zocor] 20 mg PO QPM 11/27/15 [History] Carbidopa/Levodopa [Carbidopa-Levodopa 25-100 Tab] 2 tab PO QID 08/21/17 [ History] Levothyroxine Sodium [Levoxyl] 112 mcg PO DAILY 08/21/17 [History] Metoprolol XL (24 HR) Succ [Toprol Xl] 12.5 mg PO DAILY #30 tab.er.24h 08/22/17 [Rx] Docusate [Colace] 100 mg PO BID 08/26/17 [History] Ergocalciferol (VITAMIN D2) [Vitamin D] 400 unit PO DAILY 08/26/17 [History] Loratadine [Claritin] 10 mg PO DAILY 08/26/17 [History] Ranitidine HCl [Acid Senior Environmental Technician] 75 mg PO Q48H 08/26/17 [History] 3 Allergy/AdvReac Type Severity Reaction Status Date / Time diphenhydramine Allergy See Verified 08/26/17 11:36 [From Eris] Comments All Systems Review: A 10-system review of systems was performed and is negative for pertinent findings except as documented above in the HPI. - Cardiovascular Cardiovascular: as per HPI, dyspnea at rest, palpitations Physical Examination Vital Signs, Last 4 Hours Temp Pulse Resp BP Pulse Ox 09/05/17 11:22 97.9 F 55 16 82/47 94 09/05/17 08:43 119/79 Vital Signs Temp Pulse Resp BP Pulse Ox 09/05/17 11:50 45 91/53 09/05/17 11:22 97.9 F 55 16 82/47 94 09/05/17 08:43 119/79 09/05/17 07:12 98.3 F 61 16 110/65 95 09/05/17 05:00 98.6 F 50 18 124/62 99 09/04/17 20:00 98.2 F 51 18 127/69 95 09/04/17 17:49 115/70 09/04/17 15:06 97.8 F 64 10 91/50 93 Intake and Output 09/04/17 09/05/17 09/05/17 23:59 07:59 15:59 Intake Total 180 / 180 120 / 120 Output Total 550 / 550 200 / 200 Balance -370 / -370 120 / 120 -200 / -200 Intake: Oral 180 / 180 120 / 120 Output: Urine 550 / 550 200 / 200 Other: Meal Dinner Percent of Meal Consumed 65% # Voids 2 2 Weight 81.9 kg Patient Weight 09/05/17 23:59 Weight 81.9 kg General: Conversant, No Apparent Distress HEENT: Atraumatic, Normocephaly, Mucus Membranes Moist Neck: No JVD, Normal carotid pulses Cardiac: Reg Rate and Rhythm, Normal S1 and S2, No Murmur Lungs: Normal Breath Sounds, No Wheeze, Rales, Rhonchi Neuro: Alert and responsive, No focal deficits noted Abdomen: Soft, Non-Tender Skin: No rashes noted on visualized skin Musculoskeletal: No Chest Wall Tenderness Extremities: No Clubbing, No Cyanosis, No Edema, Normal Pulses Results 09/05/17 02:28 09/05/17 02:28 Lab Results 09/05/17 09/05/17 02:28 02:28 WBC 7.8 Hgb 12.6 L Hct 38.7 Plt Count 150 Sodium 137 Potassium 3.9 Chloride 103 Carbon Dioxide 25 BUN 17 Creatinine 1.04 Glucose 76 Calcium 8.9 Magnesium 1.7 Short CBC 09/05/17 Range/Units 02:28 WBC 7.8 (4.3-11.1) K/mcL Hgb 12.6 L (12.9-16.9) g/dL Hct 38.7 (37.5-50.1) % Plt Count 150 (140-400) K/mcL [facility] 09/05/17 Range/Units 02:28 Sodium 137 (136-145) mEq/L Potassium 3.9 (3.5-4.5) mEq/L Chloride 103 (98-109) mEq/L Carbon Dioxide 25 (19-29) mEq/L BUN 17 (8-26) mg/dL Creatinine 1.04 (0.72-1.25) mg/dL Glucose 76 (70-99) mg/dL Calcium 8.9 (8.6-10.8) mg/dL Active Medications Acetaminophen (Tylenol) 650 mg PO Q6HR PRN PRN Reason: Mild Pain (1-3) Stop: 03/04/18 18:37 Hydrocodone Bitart/Acetaminophen ([place] 5-325 Mg) 1 tab PO Q4HR PRN PRN Reason: Moderate Pain (4-6) Stop: 03/04/18 18:37 Aspirin (Aspirin) 81 mg PO QPM [facility] Stop: 03/05/18 18:01 Last Admin: 09/04/17 17:50 Dose: 81 mg Carbidopa/Levodopa (Sinemet) 2 each PO QID SRINI Stop: 03/04/18 21:01 Last Admin: 09/05/17 08:44 Dose: 2 each Clopidogrel Bisulfate (Plavix) 75 mg PO QTUTHSA [facility] Stop: 03/05/18 09:01 Last Admin: 09/03/17 08:19 Dose: 75 mg Docusate Sodium (Colace) 100 mg PO BID PRN PRN Reason: Constipation Stop: 03/04/18 18:37 Docusate Sodium (Colace) 100 mg PO BID SRINI PRN Reason: Protocol Stop: 03/04/18 21:01 Last Admin: 09/05/17 08:44 Dose: 100 mg Enoxaparin Sodium (Lovenox) 80 mg SQ Q12HCO SRINI PRN Reason: Protocol Stop: 03/05/18 06:01 Last Admin: 09/05/17 06:04 Dose: 80 mg Famotidine (Pepcid) 10 mg PO Q48H [facility] Stop: 03/04/18 19:01 Last Admin: 09/04/17 17:50 Dose: 10 mg Furosemide (Lasix) 20 mg PO Q48H [facility] Stop: 03/04/18 19:01 Last Admin: 09/04/17 17:50 Dose: 20 mg Levothyroxine Sodium (Synthroid) 112 mcg PO DAILY [facility] Stop: 03/05/18 09:01 Last Admin: 09/05/17 08:44 Dose: 112 mcg Lisinopril (Zestril) 2.5 mg PO DAILY [facility] PRN Reason: Protocol Stop: 03/05/18 09:01 Last Admin: 09/05/17 08:46 Dose: 2.5 mg Loratadine (Claritin) 10 mg PO DAILY [facility] Stop: 03/05/18 09:01 Last Admin: 09/05/17 08:44 Dose: 10 mg Magnesium Hydroxide (Milk Of Magnesia Conc) 10 ml PO DAILY PRN PRN Reason: Indigestion Stop: 03/04/18 18:37 Naloxone HCl (Narcan) 0.4 mg IVP Q2MIN PRN PRN Reason: Opioid Reversal Stop: 03/04/18 18:07 Omeprazole (Prilosec) 20 mg PO DAILY@0730 SRINI PRN Reason: Protocol Stop: 03/05/18 07:31 Last Admin: 09/05/17 08:49 Dose: 20 mg Ondansetron HCl (Zofran) 4 mg IVP Q8HR PRN PRN Reason: Nausea And Vomiting Stop: 03/04/18 18:37 Pramipexole Dihydrochloride (Mirapex) 0.5 mg PO TID SRINI Stop: 03/04/18 21:01 Last Admin: 09/05/17 08:44 Dose: 0.5 mg Simvastatin (Zocor) 20 mg PO QPM SRINI PRN Reason: Protocol Stop: 03/05/18 18:01 Last Admin: 09/04/17 17:50 Dose: 20 mg Sotalol HCl (Betapace) 40 mg PO Q12HR SRINI Stop: 03/06/18 18:01 Last Admin: 09/04/17 17:51 Dose: 40 mg Vitamin D (Vitamin D) 500 unit PO DAILY [facility] Stop: 03/05/18 09:01 Last Admin: 09/05/17 08:45 Dose: 500 unit - Imaging and Cardiology Echo: report reviewed - EKG Interpretation EKG results cardiology: other (12 hr tele AVG HR 50, SR, longest pause 2.1 seconds, lowest HR 45 bpm) Consult Discharge Plan - Plan Referrals: Selina Laws MD [Primary Care Provider] - 09/15/17 10:20 am Julius Delgado MD [Partnered Physician] - 09/16/17 11:00 am <Sandro Marcelo - Last Filed: 09/05/17 16:58> Date of Encounter: 09/05/17 - Attending Attestation I have personally performed a face to face evaluation on this patient. I have reviewed and agree with the care plan. History and Exam by me shows: PAF, started on low dose sotalol. Previously on amio but stopped due to side effects. Currently in NSR. Assessment and Plan Discussion w patient/family: The assessment and plan as outlined above was discussed with the patient and/or family members who expressed understanding and agreement. All questions were answered. Thank you for involving us in the care of your patient. Please call with any questions. History of Present Illness History of present illness: Mr. Li is a 82 year old male All Systems Review: A 10-system review of systems was performed and is negative for pertinent findings except as documented above in the HPI. Physical Examination Vital Signs, Last 4 Hours Temp Pulse Resp BP Pulse Ox 09/05/17 15:38 98.3 F 50 16 101/51 96 Results 09/05/17 02:28 09/05/17 02:28 Lab Results 09/05/17 09/05/17 02:28 02:28 WBC 7.8 Hgb 12.6 L Hct 38.7 Plt Count 150 Sodium 137 Potassium 3.9 Chloride 103 Carbon Dioxide 25 BUN 17 Creatinine 1.04 Glucose 76 Calcium 8.9 Magnesium 1.7
--- NOTE | 2017-09-05 14:18 | Electrocardiograph Report ---
[address] [place], [place] [address] Test Date: 2017-09-04 Pat Name: Tra Li Department: 111 Room: 2NE17 Gender: M Service Porter: JONE : 1935 Requested By: Sancho Saba Order Number: [id number] Reading MD: Marjorie Howe Measurements Intervals [place] Rate: 48 P: 12 [place]: 154 QRS: -35 QRSD: 98 T: -8 QT: 459 QTc: 424 Interpretive Statements SINUS BRADYCARDIA LEFT AXIS DEVIATION LOW QRS VOLTAGE IN PRECORDIAL LEADS INCOMPLETE RIGHT BUNDLE BRANCH BLOCK MINIMAL VOLTAGE CRITERIA FOR LVH, CONSIDER NORMAL VARIANT POSSIBLE SEPTAL MYOCARDIAL INFARCTION, OF INDETERMINATE AGE Electronically Signed On 09-05-2017 14:17:25 EDT by Marjorie Howe
[2017-09-05] MEDS: *HR* HYDROcodone/Acet 5/325 mg TABLET PO PRN (15:59)
[2017-09-05] MEDS: Aspirin 81 MG TAB.CHEW PO SCH (18:12)
[2017-09-06] MEDS: *HR* HYDROcodone/Acet 5/325 mg TABLET PO PRN (05:01)
[2017-09-06] MEDS: *HR* Enoxaparin 80 MG/0.8 ML SYRINGE SQ SCH (05:01)
[2017-09-06] MEDS: Cholecalciferol (D-3) 1,000 UNIT TABLET PO SCH (07:54)
[2017-09-06] MEDS: Carbidopa/Levodopa 25/100 TABLET PO SCH ×2 (07:55→14:30)
[2017-09-06] MEDS: Loratadine 10 MG TABLET PO SCH (07:56)
--- NOTE | 2017-09-06 10:16 | Electrophysiology ProgressNote ---
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 Since stopping Amiodarone, has had 2 admissions for PAF--palpitations and dyspnea. A-Fib HR 140s on admission, quickly converted back to SR. Toprol XL stopped 09/04/17. Sotalol 80 mg BID started 09/04/17, received two doses, then decreased to 40mg BID due to HR noted to be in the 30's during nocturnal hours. 12 hr tele AVG HR 53, lowest HR noted to be 43, longest pause 2.1 seconds. Pt denies dizziness or lightheadedness. Not anticoagulated due to hx of GI bleed, but currently in SR. Baseline EKG SR 09/02/17--HR 79, QRS 94ms, QT/QTc 357/391ms. Daily EKGs to monitor QTc. Has received total of 6 doses. EKG 09/04 AM sinus bradycardia, HR 58. QT /QTc 459/424ms. EKG 09/05 AM sinus bradycardia, HR 48. QT/QTc 446/412ms. EKG 09/06 AM sinus bradycardia, HR 45. QT/QTc 455/412ms. Limited echo 08/04/17 EF 60-65%. BP 80s systolic this AM. Pt asymptomatic. Will stop Lisinopril. EP/Cardiology signing off. Reconsult PRN. Follow-up as outpt in 2 weeks--will coordinate. (2) CAD (coronary artery disease) Current Visit: No Status: Chronic Hx of PCI. ASA, Statin, Plavix, BB. Qualifiers: Coronary Disease-Associated Artery/Lesion type: [place] artery [place] vs. transplanted heart: [place] heart Associated angina: without angina Qualified Code(s): I25.10 - Atherosclerotic heart disease of [place] coronary artery without angina pectoris Discussion w patient/family: The assessment and plan as outlined above was discussed with the patient and/or family members who expressed understanding and agreement. All questions were answered. Thank you for involving us in the care of your patient. Please call with any questions. I will discuss all the above with Dr. Sandro Marcelo and make changes as necessary. Subjective Principal diagnosis: atrial fibrillation Interval history: Pt denies acute complaints this AM. Objective Vital Signs, Last 4 Hours Temp Pulse Resp BP Pulse Ox 09/06/17 06:33 97.7 F 54 12 80/56 96 Vital Signs Temp Pulse Resp BP Pulse Ox 09/06/17 06:33 97.7 F 54 12 80/56 96 09/06/17 03:30 98 F 56 16 127/71 96 09/05/17 19:45 96 09/05/17 19:39 97.8 F 50 16 112/69 96 09/05/17 15:38 98.3 F 50 16 101/51 96 09/05/17 11:50 45 91/53 09/05/17 11:22 97.9 F 55 16 82/47 94 Intake and Output 09/05/17 09/06/17 09/06/17 23:59 07:59 15:59 Intake Total 60 / 60 0 / 0 120 / 120 Output Total 575 / 575 300 / 300 100 / 100 Balance -515 / -515 -300 / -300 20 / 20 Intake: Oral 60 / 60 0 / 0 120 / 120 Output: Urine 575 / 575 300 / 300 100 / 100 Other: Meal Breakfast Percent of Meal Consumed 95% # Voids 1 Weight 82.1 kg Patient Weight 09/06/17 23:59 Weight 82.1 kg General: Conversant, No Apparent Distress HEENT: Atraumatic, Normocephaly, Mucus Membranes Moist Neck: No JVD, Normal carotid pulses Cardiac: Reg Rate and Rhythm, Normal S1 and S2, No Murmur Lungs: Normal Breath Sounds, No Wheeze, Rales, Rhonchi Neuro: Alert and responsive, No focal deficits noted Abdomen: Soft, Non-Tender Skin: No rashes noted on visualized skin Musculoskeletal: No Chest Wall Tenderness Extremities: No Clubbing, No Cyanosis, No Edema, Normal Pulses Results 09/05/17 02:28 09/05/17 02:28 Active Medications Acetaminophen (Tylenol) 650 mg PO Q6HR PRN PRN Reason: Mild Pain (1-3) Stop: 03/04/18 18:37 Hydrocodone Bitart/Acetaminophen ([place] 5-325 Mg) 1 tab PO Q4HR PRN PRN Reason: Moderate Pain (4-6) Stop: 03/04/18 18:37 Last Admin: 09/06/17 05:01 Dose: 1 tab Aspirin (Aspirin) 81 mg PO QPM [facility] Stop: 03/05/18 18:01 Last Admin: 09/05/17 18:12 Dose: 81 mg Carbidopa/Levodopa (Sinemet) 2 each PO QID [facility] Stop: 03/04/18 21:01 Last Admin: 09/06/17 07:55 Dose: 2 each Clopidogrel Bisulfate (Plavix) 75 mg PO QTUTHSA [facility] Stop: 03/05/18 09:01 Last Admin: 09/06/17 07:56 Dose: 75 mg Docusate Sodium (Colace) 100 mg PO BID PRN PRN Reason: Constipation Stop: 03/04/18 18:37 Docusate Sodium (Colace) 100 mg PO BID [facility] PRN Reason: Protocol Stop: 03/04/18 21:01 Last Admin: 09/06/17 07:55 Dose: 100 mg Enoxaparin Sodium (Lovenox) 80 mg SQ Q12HCO [facility] PRN Reason: Protocol Stop: 03/05/18 06:01 Last Admin: 09/06/17 05:01 Dose: 80 mg Furosemide (Lasix) 20 mg PO Q48H [facility] Stop: 03/04/18 19:01 Last Admin: 09/04/17 17:50 Dose: 20 mg Levothyroxine Sodium (Synthroid) 112 mcg PO 0630 [facility] Stop: 03/05/18 09:01 Last Admin: 09/06/17 05:01 Dose: 112 mcg Loratadine (Claritin) 10 mg PO DAILY [facility] Stop: 03/05/18 09:01 Last Admin: 09/06/17 07:56 Dose: 10 mg Magnesium Hydroxide (Milk Of Magnesia Conc) 10 ml PO DAILY PRN PRN Reason: Indigestion Stop: 03/04/18 18:37 Naloxone HCl (Narcan) 0.4 mg IVP Q2MIN PRN PRN Reason: Opioid Reversal Stop: 03/04/18 18:07 Omeprazole (Prilosec) 20 mg PO DAILY@0730 [facility] PRN Reason: Protocol Stop: 03/05/18 07:31 Last Admin: 09/06/17 07:55 Dose: 20 mg Ondansetron HCl (Zofran) 4 mg IVP Q8HR PRN PRN Reason: Nausea And Vomiting Stop: 03/04/18 18:37 Pramipexole Dihydrochloride (Mirapex) 0.5 mg PO TID [facility] Stop: 03/04/18 21:01 Last Admin: 09/06/17 07:56 Dose: 0.5 mg Simvastatin (Zocor) 20 mg PO QPM [facility] PRN Reason: Protocol Stop: 03/05/18 18:01 Last Admin: 09/05/17 18:12 Dose: 20 mg Sotalol HCl (Betapace) 40 mg PO Q12HR [facility] Stop: 03/06/18 18:01 Last Admin: 09/06/17 05:01 Dose: 40 mg Vitamin D (Vitamin D) 500 unit PO DAILY [facility] Stop: 03/05/18 09:01 Last Admin: 09/06/17 07:54 Dose: 500 unit - Imaging and Cardiology Echo: report reviewed - EKG Interpretation EKG results cardiology: other (12 hr tele AVG HR 53, SR, longest pause 2.1 seconds, lowest HR 43) - VTE Reasons for not Prescribing Prophylaxis: Not indicated-Anticoagulated or INR therapeutic Consult Discharge Plan - Plan Referrals: Selina Laws MD [Primary Care Provider] - 09/15/17 10:20 am Julius Delgado MD [Partnered Physician] - 09/16/17 11:00 am
[2017-09-06 10:33] VITALS: BP 94/58
--- NOTE | 2017-09-06 10:46 | Discharge Summary ---
<Indra Moses - Last Filed: 09/06/17 13:08> Date of Encounter: 09/06/17 Time of Encounter: 10:00 - Discharge Diagnosis (1) Paroxysmal atrial fibrillation Priority: Primary Status: Acute (2) Parkinson disease Priority: Secondary Status: Chronic (3) Hypothyroidism (acquired) Priority: Secondary Status: Chronic (4) GERD (gastroesophageal reflux disease) Priority: Secondary Status: Chronic Qualifiers: Esophagitis presence: without esophagitis Qualified Code(s): K21.9 - Gastro -esophageal reflux disease without esophagitis (5) CAD (coronary artery disease) Priority: Secondary Status: Chronic Qualifiers: Coronary Disease-Associated Artery/Lesion type: [place] artery [place] vs. transplanted heart: [place] heart Associated angina: without angina Qualified Code(s): I25.10 - Atherosclerotic heart disease of [place] coronary artery without angina pectoris - Discharge Medications Prescriptions: Sotalol [Betapace] 40 mg PO Q12HR #60 tablet Home Medications: Aspirin 81 mg PO QPM 11/27/15 [History] Clopidogrel [Plavix] 75 mg PO QTUTHSA 11/27/15 [History] Furosemide [Lasix] 20 mg PO Q48H 11/27/15 [History] Pantoprazole Sodium [Protonix] 40 mg PO DAILY 11/27/15 [History] Pramipexole Di-HCl [Pramipexole Dihydrochloride] 0.5 mg PO TID 11/27/15 [History ] Simvastatin [Zocor] 20 mg PO QPM 11/27/15 [History] Carbidopa/Levodopa [Carbidopa-Levodopa 25-100 Tab] 2 tab PO QID 08/21/17 [ History] Levothyroxine Sodium [Levoxyl] 112 mcg PO DAILY 08/21/17 [History] Docusate [Colace] 100 mg PO BID 08/26/17 [History] Ergocalciferol (VITAMIN D2) [Vitamin D] 400 unit PO DAILY 08/26/17 [History] Loratadine [Claritin] 10 mg PO DAILY 08/26/17 [History] Ranitidine HCl [Acid Director Of Labor And Delivery] 75 mg PO Q48H 08/26/17 [History] Sotalol [Betapace] 40 mg PO Q12HR #60 tablet 09/06/17 [Rx] Allergies/Adverse Reactions: 3 Allergy/AdvReac Type Severity Reaction Status Date / Time diphenhydramine Allergy See Verified 08/26/17 11:36 [From Benadryl] Comments Date of admission: 09/05/17 19:16 Primary care physician: Selina Laws MD Consults: Cardiology/electrophysiology Discharging clinician: Indra Moses Anticipated date of discharge: 09/06/17 - Patient Status Disposition: Home, Self-Care Condition: Fair Overall status at discharge: patient is progressing back to baseline - Discharge Instructions Instructions: Sotalol (By mouth), Atrial Fibrillation (DC), Hypothyroidism (DC) , Anemia (GEN), Fall Prevention (DC) Follow Up With: Selina Laws MD [Primary Care Provider] - 09/15/17 10:20 am Julius Delgado MD [Partnered Physician] - 09/16/17 11:00 am Additional Instructions: Please take Sotalol 40 mg by mouth every 12 hours. Please also note that your Toprol XL (metoprolol) had been discontinued. Please follow up with your primary care provider Dr. Laws on 09/15/17 Please follow up with your asset protection greeter Dr. Delgado on 09/16/17 - Diet and Activity Activity: increase activity as tolerated Diet: low fat, low cholesterol, low salt diet Hospital course: Mr. Li is a 82 year old male with PMH of Parkinson's disease on [facility], paroxysmal A-fib, CAD s/p 3 stents who presented to [place] ED for shortness of breath and tachycardia. Patient was noted to have A-fib with RVR at rate of 140s but quickly converted back to sinus rhythm. Patient was admitted on 09/02/17 for further management. Patient was switched from Toprol XL to Sotalol on 06/04/17 as recommended by cardiology. Patient tolerated 6 doses of Sotalol well without significant EKG change. Patient will be discharge home with 30-day prescription of sotalol 40 mg PO BID. Patient will follow up with his PCP Dr. Laws on 09/15/[address] Delgado on 09/16/17. The discharge plan was discussed with patient and his at bedside. Patient's verbalized her understanding and agreed with the plan. All question answered. - Time Spent with Patient Total time spent providing and/or coordinating discharge services: Greater than 30 minutes - Constitutional Vitals: Temp Pulse Resp BP Pulse Ox 97.8 F 78 12 94/58 95 09/06/17 10:31 09/06/17 10:31 09/06/17 10:31 09/06/17 10:31 09/06/17 10:31 General appearance: Present: no acute distress - Head Head exam: Present: atraumatic, normocephalic - Eye Eye exam: Present: EOMI, conjuntiva pink, sclera anicteric - Neck Neck exam general surgery: Present: supple, trachea midline. Absent: lymphadenopathy - Respiratory Respiratory exam: Present: CTAB. Absent: accessory muscle use, rales, rhonchi, wheezes - Cardiovascular Cardiovascular exam: Present: bradycardia, +S1, +S2. Absent: diastolic murmur, gallop, rubs, systolic murmur - GI/Abdominal GI/Abdominal exam: Present: normal bowel sounds, soft, no peritoneal signs. Absent: distended, tenderness - Extremities Exam Extremities exam: Present: warm, radial pulses palpable and symmetrical. Absent : calf tenderness, cyanotic, pedal edema - Neurological Exam Neurological exam: Present: alert. Absent: facial droop - Skin Skin exam: Present: dry, warm - VTE Reasons for not Prescribing Prophylaxis: Not indicated-Anticoagulated or INR therapeutic <Jose Newman - Last Filed: 09/06/17 16:25> Date of Encounter: 09/06/17 Date of admission: 09/05/17 19:16 Primary care physician: Selina Laws MD Hospital course: Mr. Li is a 82 year old male - Time Spent with Patient Total time spent providing and/or coordinating discharge services: - Constitutional Vitals: Temp Pulse Resp BP Pulse Ox 97.8 F 78 12 94/58 95 09/06/17 10:31 09/06/17 10:31 09/06/17 10:31 09/06/17 10:31 09/06/17 10:31 - Attending Attestation I examined this patient and my medical decision-making was reviewed with the Resident Physician. I agree with the documented findings, disposition and treatment plan as described except to the extent set forth below.
--- NOTE | 2017-09-06 13:08 | Physician Discharge Referral ---
<Indra Moses - Last Filed: 09/06/17 13:06> Home Health/Hosp Referral Info Transfer to: Hospice ([facility]) Provider in Charge Post Discharge: Human Factors Engineer - Diagnosis (1) Paroxysmal atrial fibrillation Status: Acute (2) Parkinson disease Status: Chronic (3) Hypothyroidism (acquired) Status: Chronic (4) GERD (gastroesophageal reflux disease) Status: Chronic (5) CAD (coronary artery disease) Status: Chronic - Respiratory Orders Oxygen / L per min (2L) Smoking Cessation: Smoking cessation has been advised. For more information, call the [place] Tobacco Quit Line at 9-373-DWWE-NOW. - Diet/Nutrition Diet/Nutrition Orders: Cardiac - Services Needed Following services are medically necessary services: Home Health Aide - Transfer Medications Prescriptions: Sotalol [Betapace] 40 mg PO Q12HR #60 tablet Home Medications: Aspirin 81 mg PO QPM 11/27/15 [History] Clopidogrel [Plavix] 75 mg PO QTUTHSA 11/27/15 [History] Furosemide [Lasix] 20 mg PO Q48H 11/27/15 [History] Pantoprazole Sodium [Protonix] 40 mg PO DAILY 11/27/15 [History] Pramipexole Di-HCl [Pramipexole Dihydrochloride] 0.5 mg PO TID 11/27/15 [History ] Simvastatin [Zocor] 20 mg PO QPM 11/27/15 [History] Carbidopa/Levodopa [Carbidopa-Levodopa 25-100 Tab] 2 tab PO QID 08/21/17 [ History] Levothyroxine Sodium [Levoxyl] 112 mcg PO DAILY 08/21/17 [History] Docusate [Colace] 100 mg PO BID 08/26/17 [History] Ergocalciferol (VITAMIN D2) [Vitamin D] 400 unit PO DAILY 08/26/17 [History] Loratadine [Claritin] 10 mg PO DAILY 08/26/17 [History] Ranitidine HCl [Acid Forest Nursery Supervisor] 75 mg PO Q48H 08/26/17 [History] Sotalol [Betapace] 40 mg PO Q12HR #60 tablet 09/06/17 [Rx] Allergies/Adverse Reactions: 3 Allergy/AdvReac Type Severity Reaction Status Date / Time diphenhydramine Allergy See Verified 10/13/17 11:36 [From Eris] Comments Certification: Further, I certify that my clinical findings support that this patient is homebound (i.e. absences from home require considerable and taxing effort and are for medical reasons or sikh services or infrequently or short duration when for other reasons) because: Homebound Reason: Leaving home requires considerable and taxing effort due to condition Attestation: My signature below is to certify that this patient is under my care and that I, or nurse practitioner, or a physician's assistant professor of marine biology working with me, has a face-to -face encounter with this patient. <Jose Newman P - Last Filed: 09/06/17 16:25> - Respiratory Orders Smoking Cessation: Smoking cessation has been advised. For more information, call the [place] Tobacco Quit Line at 2-996-HPUT-NOW. Certification: Further, I certify that my clinical findings support that this patient is homebound (i.e. absences from home require considerable and taxing effort and are for medical reasons or sikh services or infrequently or short duration when for other reasons) because: Attestation: My signature below is to certify that this patient is under my care and that I, or nurse practitioner, or a physician's assistant professor of marine biology working with me, has a face-to -face encounter with this patient.
--- NOTE | 2017-09-06 16:22 | Electrocardiograph Report ---
[address] [place], [place] [address] Test Date: 2017-09-06 Pat Name: Tra Li Department: 111 Room: 2NE17 Gender: M Coordinator Of Library Services: JONE : 1935 Requested By: Sancho Saba Order Number: [id number] Reading MD: Sandro Marcelo Measurements Intervals [place] Rate: 45 P: 20 DC: 185 QRS: -33 QRSD: 94 T: 1 QT: 455 QTc: 412 Interpretive Statements SINUS BRADYCARDIA MARKED LEFT AXIS DEVIATION LOW QRS VOLTAGE IN PRECORDIAL LEADS INCOMPLETE RIGHT BUNDLE BRANCH BLOCK SEPTAL MYOCARDIAL INFARCTION, OF INDETERMINATE AGE Electronically Signed On 09-06-2017 16:20:40 EDT by Sandro Marcelo
--- NOTE | 2017-09-17 11:37 | Electrocardiograph Report ---
[address] [place], [place] [address] Test Date: 2017-09-14 Pat Name: Tra Li Department: 102 Room: 2NE17 Gender: M Funeral Planning Counselor: Rosey : 1935 Requested By: Sancho Saba Order Number: [id number] Reading MD: Marjorie Howe Measurements Intervals [place] Rate: 164 P: [place]: 0 QRS: 183 QRSD: 182 T: -6 QT: 356 QTc: 446 Interpretive Statements REGULAR WIDE COMPLEX TACHYCARDIA - CONSIDER VENTRICULAR TACHYCARDIA MARKED RIGHT AXIS DEVIATION ST DEPRESSION, CONSIDER SUBENDOCARDIAL INJURY Electronically Signed On 09-17-2017 11:36:02 EDT by Marjorie Howe
== END 2017-09-06 17:53 | disposition home or self-care (01) | DRG 310 ==
LOC: 2NENU 14:54 → EMEROO 14:54 → 2NENU 18:45 → SUATTDRO 09-05 19:16
PROVIDERS: ADMIT Internal Medicine; ATTEND Internal Medicine

== ENCOUNTER 2017-09-27 22:20 | Observation (INO) ==
--- NOTE | 2017-09-27 22:35 | Emergency Department Note ---
START Narrative - START START: I examined this patient and my medical decision-making was reviewed with the Resident Physician. I agree with the documented findings, disposition and treatment plan as described except to the extent set forth below. 82 year old male presents to the ED via EMS. Patient has been monitoring his pulse rate and it has been as high as 116 and low as 49 in the past few hours. He has been evaluated by our cardiology group on 09/06 for PAT and it appears they lowered his dose of sotalol due to symptoamtic bradycardia. Review of recent EKG shows that on 09/14/17 he also had a wide complex tachycardia with rate of 164. Patient denies all symptoms at this time. We will do cardiopulmonary workup and monitor his HR and rhythm at bedside and likely consult cardiology before disposition has been made.
[2017-09-27 22:44] LABS: Basophils % 0.5 %; Eosinophils # 0.1 K/mcL (0.0-0.6); Eosinophils % 1.9 %; Hematocrit 42.1 % (37.5-50.1); Hemoglobin 14.1 g/dL (12.9-16.9); Immature Granulocytes % 0.3 % (0-4); Lymphocytes # 2.4 K/mcL (0.6-4.6); Lymphocytes % 38.3 %; Mean Corpuscular HGB Conc 33.5 g/dL (31.6-35.5); Mean Corpuscular Hemoglobin 31.1 pg (28.0-33.3); Mean Corpuscular Volume 92.9 fL (83.0-100.0); Mean Platelet Volume 11.5 fL (9.4-12.4); Monocytes # 0.5 K/mcL (0.0-1.3); Monocytes % 8.3 %; Neutrophils # 3.2 K/mcL (1.6-8.9); Platelet Count 183 K/mcL (140-400); Red Blood Count 4.53 M/mcL (4.19-5.50); Red Cell Distribution Width 11.6 % (11.5-14.5); Segmented Neutrophils % 50.7 %
[2017-09-27 22:49] LABS: INR 1.1; Prothrombin Time 12.3 Seconds (9.4-12.1)
[2017-09-27 22:56] LABS: BUN/Creatinine Ratio 13 (6-26); Blood Urea Nitrogen 11 mg/dL (8-26); Carbon Dioxide 30 mEq/L (19-29); Chloride 101 mEq/L (98-109); Glucose 101 mg/dL (70-99); Osmolality,Calculated 284 (280-300); Potassium 3.7 mEq/L (3.5-4.5); Sodium 137 mEq/L (136-145); eGFR For African Americans > 60 (> 60); eGFR For Non-African Americans > 60 (> 60)
--- NOTE | 2017-09-27 23:11 | Emergency Department Note ---
Disposition Clinical Impression: HCAP (healthcare-associated pneumonia) Disposition: Admitted As Inpatient Condition: Good General Adult HPI - General Chief complaint: ED Shortness of Breath/Dyspnea Stated complaint: "abnormal vital signs at home" Time Seen by Provider: 09/27/17 22:24 Source: patient, EMS Limitations: no limitations Nursing Notes Reviewed: Yes Vital Signs Reviewed: Yes - History of Present Illness HPI Narrative: Patient here for evaluation of shortness of breath and abnormal vital signs. Patient states that he was feeling short of breath and asked his to take his vital signs. Every time the patient felt bad he requested his take his vital signs. This was after he was placed on oxygen which she has at home for as needed. Does not normally need to wear it. Was placed on 2 L. Patient' s vital signs ranged from a heart rate of 48-120. Patient's blood pressure has been stable between 1:30 and 150. Patient at this time does have Parkinson's and is slow to answer questions but is able to answer all questions given time. Patient has not had significant fevers or cough. We will evaluate the patient for possible causes of respiratory distress leading to his underlying abnormal vital signs. Pain Scale: 0 - Related Data Home Medications Medication Instructions Recorded Confirmed Aspirin 81 mg PO QPM 11/27/15 09/02/17 Clopidogrel [Plavix] 75 mg PO QTUTHSA 11/27/15 09/02/17 Furosemide [Lasix] 20 mg PO Q48H 11/27/15 09/02/17 Pantoprazole Sodium [Protonix] 40 mg PO DAILY 11/27/15 09/02/17 Pramipexole Di-HCl [Pramipexole 0.5 mg PO TID 11/27/15 09/02/17 Dihydrochloride] Simvastatin [Zocor] 20 mg PO QPM 11/27/15 09/02/17 Carbidopa/Levodopa 2 tab PO QID 08/21/17 09/02/17 [Carbidopa-Levodopa 25-100 Tab] Levothyroxine Sodium [Levoxyl] 112 mcg PO DAILY 08/21/17 09/02/17 Docusate [Colace] 100 mg PO BID 08/26/17 09/02/17 Ergocalciferol (VITAMIN D2) 400 unit PO DAILY 08/26/17 09/02/17 [Vitamin D] Loratadine [Claritin] 10 mg PO DAILY 08/26/17 09/02/17 Ranitidine HCl [Acid Pit Inspector] 75 mg PO Q48H 08/26/17 09/02/17 Previous Rx's Medication Instructions Recorded Sotalol [Betapace] 40 mg PO Q12HR #60 tablet 09/06/17 Allergies Allergy/AdvReac Type Severity Reaction Status Date / Time diphenhydramine Allergy See Verified 09/27/17 22:32 [From Benadryl] Comments Past Medical History - Past Medical History Medical history: Reports: atrial fibrillation, coronary artery disease, dementia , GERD, thyroid disease, other Surgical history: Reports: other Psychiatric history: Reports: no psych history - Social History Smoking Status: Never smoker Smokeless Tobacco Status: No Alcohol use: Reports: none Drug use: Reports: none Physical Exam General appearance: Patient resting comfortably in bed, slow to answer questions Eyes: anicteric sclerae, moist conjunctivae; PERRL HENT: Atraumatic; oropharynx clear with moist mucous membranes and no mucosal ulcerations Neck: Normal inspection; Trachea midline; FROM, supple Lungs: Decreased breath sounds no wheezing or rhonchi CV: Tachycardic, no MRGs Abdomen: Soft, non-tender; no rebound or gaurding Extremities: No peripheral edema or extremity lymphadenopathy Skin: Normal temperature; no rash, ulcers or lesions Psych: Appropriate mood and affect Neuro: alert and oriented to person, place and time - General Limitations: no limitations General appearance: alert Course - Reevaluation(s) Reevaluation #1: Due to the patients recent admission to the hospital, he has a Pneumonia that will be hospitalization for further treatment. - Consultations Consultation #1: Discussed with hospitalist. Patient accepted for admission. Vital Signs Temperature 98 F 09/27/17 22:23 Pulse Rate 76 09/27/17 22:23 Respiratory Rate 18 09/27/17 22:23 Blood Pressure 121/74 09/27/17 22:23 O2 Sat by Pulse Oximetry 93 09/27/17 22:23 Temperature 98 F 09/27/17 22:23 Pulse Rate 57 09/28/17 00:30 Respiratory Rate 18 09/28/17 01:08 Blood Pressure 106/68 09/28/17 01:08 O2 Sat by Pulse Oximetry 96 09/28/17 00:30 Oxygen Delivery Oxygen Delivery Nasal Cannula Medical Decision Making - Medical Records Medical records reviewed: Yes I reviewed the patient's medical records. - Lab Data Lab results reviewed: Yes I reviewed the patient's lab results. Result diagrams: 09/27/17 22:37 09/27/17 22:37 Lab Results 09/27/17 09/27/17 09/27/17 Range/Units 22:37 22:37 22:37 WBC 6.3 (4.3-11.1) K/mcL RBC 4.53 (4.19-5.50) M/mcL Hgb 14.1 (12.9-16.9) g/dL Hct 42.1 (37.5-50.1) % MCV 92.9 (83.0-100.0) fL MCH 31.1 (28.0-33.3) pg MCHC 33.5 (31.6-35.5) g/dL RDW 11.6 (11.5-14.5) % Plt Count 183 (140-400) K/mcL MPV 11.5 (9.4-12.4) fL Immature Gran % 0.3 (0-4) % Seg Neutrophils % 50.7 % Lymphocytes % 38.3 % Monocytes % 8.3 % Eosinophils % 1.9 % Basophils % 0.5 % Neutrophils # 3.2 (1.6-8.9) K/mcL Lymphocytes # 2.4 (0.6-4.6) K/mcL Monocytes # 0.5 (0.0-1.3) K/mcL Eosinophils # 0.1 (0.0-0.6) K/mcL Basophils # 0.0 (0.0-0.2) K/mcL PT 12.3 H (9.4-12.1) Seconds INR 1.1 Sodium 137 (136-145) mEq/L Potassium 3.7 (3.5-4.5) mEq/L Chloride 101 (98-109) mEq/L Carbon Dioxide 30 H (19-29) mEq/L BUN 11 (8-26) mg/dL Creatinine 0.84 (0.72-1.25) mg/dL Est GFR ( Amer) > 60 (> 60) Est GFR (Non-Af Amer) > 60 (> 60) BUN/Creatinine Ratio 13 (6-26) Glucose 101 H (70-99) mg/dL Calculated Osmolality 284 (280-300) Calcium 9.0 (8.6-10.8) mg/dL Troponin I (0-0.03) ng/mL B-Natriuretic Peptide (0-100) pg/mL 09/27/17 09/27/17 Range/Units 22:37 22:37 WBC (4.3-11.1) K/mcL RBC (4.19-5.50) M/mcL Hgb (12.9-16.9) g/dL Hct (37.5-50.1) % MCV (83.0-100.0) fL MCH (28.0-33.3) pg MCHC (31.6-35.5) g/dL RDW (11.5-14.5) % Plt Count (140-400) K/mcL MPV (9.4-12.4) fL Immature Gran % (0-4) % Seg Neutrophils % % Lymphocytes % % Monocytes % % Eosinophils % % Basophils % % Neutrophils # (1.6-8.9) K/mcL Lymphocytes # (0.6-4.6) K/mcL Monocytes # (0.0-1.3) K/mcL Eosinophils # (0.0-0.6) K/mcL Basophils # (0.0-0.2) K/mcL PT (9.4-12.1) Seconds INR Sodium (136-145) mEq/L Potassium (3.5-4.5) mEq/L Chloride (98-109) mEq/L Carbon Dioxide (19-29) mEq/L BUN (8-26) mg/dL Creatinine (0.72-1.25) mg/dL Est GFR ( Amer) (> 60) Est GFR (Non-Af Amer) (> 60) BUN/Creatinine Ratio (6-26) Glucose (70-99) mg/dL Calculated Osmolality (280-300) Calcium (8.6-10.8) mg/dL Troponin I 0.00 (0-0.03) ng/mL B-Natriuretic Peptide 110 H (0-100) pg/mL - Radiology Data Radiology results reviewed: Yes I reviewed the patient's radiology results. - EKG Data EKG #1 EKG attestation: Yes I reviewed and interpreted this EKG. EKG results narrative: EKG shows ectopic atrial rhythm ventricular rate of 77 bpm. KS interval 124. QRS 91. QTC 414. No significant ST elevations or depressions. EKG improved from previous ventricular tachycardia on 09/15/17.
[2017-09-27] MEDS ORDERED: Vancomycin 1,000 MG in D5% in Water 250 ML IVPB ONE (23:33)
[2017-09-27] MEDS ORDERED: Levofloxacin 750 MG/150 ML 750 MG/150 ML BAG IVPB ONE (23:33)
[2017-09-27] MEDS ORDERED: Piperacillin/Tazobactam 3.375 GM in D5% in Water 50 ML IVPB ONE (23:34)
[2017-09-28] MEDS ORDERED: Acetaminophen 325 MG TABLET PO PRN (01:14)
[2017-09-28] MEDS ORDERED: Naloxone 0.4 MG/ML INJ IVP PRN (01:14)
[2017-09-28] MEDS ORDERED: Furosemide 20 MG TABLET PO SCH (01:30)
[2017-09-28] MEDS ORDERED: 0.9 % Sodium Chloride 250 ML ONE (01:35)
[2017-09-28] MEDS ORDERED: 0.9 % Sodium Chloride 250 ML IVC SCH (01:45)
[2017-09-28] MEDS ORDERED: Vancomycin 1,250 MG in D5% in Water 250 ML IVPB SCH ×2 (02:00→04:00)
--- NOTE | 2017-09-28 02:28 | Internal Med History&Physical ---
Date of Encounter: 09/28/17 Time of Encounter: 00:15 Assessment and Plan (1) Paroxysmal atrial fibrillation Current visit: No Status: Acute Patient has a history of paroxysmal A. fib. On sotalol for rhythm control. Right now sinus rhythm. Patient is not on anticoagulation except aspirin and Plavix, because of history of GI bleeding. - Continuous cardiac monitoring - Continue Sotalol 40mg po bid. continue aspirin and Plavix at home dose for stroke prevention. - Check a TSH, magnesium level - Consult cardiology for further management. (2) HCAP (healthcare-associated pneumonia) Current visit: Yes Status: Acute Patient denies a fever or cough. However chest x-ray shows pneumonia. Patient was in hospital 3 weeks ago. Treated as healthcare associated pneumonia. - Continue Vanco, Zosyn, and Levaquin. - Nasal cannula oxygen - Follow up blood cultures, de-escalate antibiotic according to culture results (3) Parkinson disease Current visit: No Status: Chronic Continue home medications (4) Hypothyroidism (acquired) Current visit: No Status: Chronic Continue home medications. Check TSH (5) CAD (coronary artery disease) Current visit: No Status: Chronic Patient denies chest pain. Continue home medication aspirin, Plavix, beta sailaja, and statin Qualifiers: Coronary Disease-Associated Artery/Lesion type: [place] artery [place] vs. transplanted heart: [place] heart Associated angina: without angina Qualified Code(s): I25.10 - Atherosclerotic heart disease of [place] coronary artery without angina pectoris (6) DVT prophylaxis Current visit: No Status: Acute EPCD Internal Medicine - H&P: HPI Chief complaint: Shortness of breath Admitted From: Home Plans for Post Hospital Care: Home History of present illness: Mr. Li is a 82 year old male with history of paroxysmal A. fib, CAD S/P stent , Parkinson disease presented to ER for shortness of breath. Patient has paroxysmal A. fib which is symptomatic, patient can tell if A. fib happens. Patient was just discharged from hospital 3 weeks ago for A. fib. This evening , patient has sudden onset shortness of breath and he knew it is A. fib. Patient's checked the vitals, heart rate varied from 49-118. Patient denies chest pain. He denies nausea vomiting diaphoresis. Patient has no fever or cough. In emergency room, chest x-ray shows suspected pneumonia. Patient's heart rate is a sinus rhythm with a heart rate 70. Patient was admitted for further management. Past Med Surg Social Fam HX - Past Medical History Medical history: atrial fibrillation, coronary artery disease, dementia, GERD, thyroid disease, other Psychiatric history: no psych history - Past Surgical History Surgical History: other - Social History Smoking Status: Never smoker Smokeless Tobacco Status: No Alcohol use: none Drug use: none - Family History Mother Living Status: Father Living Status: Internal Medicine - H&P: Meds Aspirin 81 mg PO QPM 11/27/15 [History] Clopidogrel [Plavix] 75 mg PO QTUTHSA 11/27/15 [History] Furosemide [Lasix] 20 mg PO Q48H 11/27/15 [History] Pantoprazole Sodium [Protonix] 40 mg PO DAILY 11/27/15 [History] Pramipexole Di-HCl [Pramipexole Dihydrochloride] 0.5 mg PO TID 11/27/15 [History ] Simvastatin [Zocor] 20 mg PO QPM 11/27/15 [History] Carbidopa/Levodopa [Carbidopa-Levodopa 25-100 Tab] 2 tab PO QID 08/21/17 [ History] Levothyroxine Sodium [Levoxyl] 112 mcg PO DAILY 08/21/17 [History] Docusate [Colace] 100 mg PO BID 08/26/17 [History] Ergocalciferol (VITAMIN D2) [Vitamin D] 400 unit PO DAILY 08/26/17 [History] Loratadine [Claritin] 10 mg PO DAILY 08/26/17 [History] Ranitidine HCl [Acid State [employer] Agent] 75 mg PO Q48H 08/26/17 [History] Sotalol [Betapace] 40 mg PO Q12HR #60 tablet 09/06/17 [Rx] 3 Allergy/AdvReac Type Severity Reaction Status Date / Time diphenhydramine Allergy See Verified 09/27/17 22:32 [From Eris] Comments All Systems PM: A 10-system review of systems was performed and is negative for pertinent findings except as documented above in the HPI. - Constitutional Vitals: Temp Pulse Resp BP Pulse Ox 98 F 57 18 106/68 96 09/27/17 22:23 09/28/17 00:30 09/28/17 01:08 09/28/17 01:08 09/28/17 00:30 General appearance: Present: A&O X 3, no acute distress, answers questions appropriately - Head Head exam: Present: atraumatic, normocephalic - Eye Eye exam: Present: PERRL, conjuntiva pink, sclera anicteric Pupils: Present: PERRL - Neck Neck exam general surgery: Present: supple, trachea midline. Absent: lymphadenopathy - Respiratory Respiratory exam: Present: CTAB. Absent: accessory muscle use, rales, rhonchi, wheezes - Cardiovascular Cardiovascular exam: Present: RRR, +S1, +S2. Absent: diastolic murmur, gallop, rubs, systolic murmur - GI/Abdominal GI/Abdominal exam: Present: normal bowel sounds, soft, no peritoneal signs. Absent: distended, tenderness - Extremities Exam Extremities exam: Present: warm, radial pulses palpable and symmetrical. Absent : calf tenderness, cyanotic, pedal edema - Neurological Exam Neurological exam: Present: CN II-XII intact, oriented X3, no focal deficits. Absent: pronater drift, facial droop, speech deficit - Skin Skin exam: Present: dry, intact Internal Med - H&P Results - Labs CBC & Chem 7: 09/27/17 22:37 09/27/17 22:37 - EKG Data -: EKG Interpreted by Myself EKG shows normal: sinus rhythm Rate: normal
[2017-09-28 05:44] LABS: Basophils % 0.5 %; Eosinophils # 0.1 K/mcL (0.0-0.6); Hemoglobin 12.7 g/dL (12.9-16.9); Immature Granulocytes % 0.7 % (0-4); Lymphocytes # 1.3 K/mcL (0.6-4.6); Lymphocytes % 21.6 %; Mean Corpuscular HGB Conc 33.4 g/dL (31.6-35.5); Mean Corpuscular Volume 92.7 fL (83.0-100.0); Mean Platelet Volume 11.5 fL (9.4-12.4); Monocytes # 0.4 K/mcL (0.0-1.3); Monocytes % 6.1 %; Neutrophils # 4.1 K/mcL (1.6-8.9); Platelet Count 149 K/mcL (140-400); Red Cell Distribution Width 11.7 % (11.5-14.5); Segmented Neutrophils % 69.1 %
[2017-09-28 05:55] LABS: BUN/Creatinine Ratio 13 (6-26); Blood Urea Nitrogen 11 mg/dL (8-26); Calcium 8.8 mg/dL (8.6-10.8); Carbon Dioxide 32 mEq/L (19-29); Chloride 104 mEq/L (98-109); Glucose 92 mg/dL (70-99); Magnesium 1.7 mg/dL (1.6-2.6); Osmolality,Calculated 291 (280-300); Phosphorous 3.2 mg/dL (2.3-4.7); Sodium 141 mEq/L (136-145); eGFR For African Americans > 60 (> 60); eGFR For Non-African Americans > 60 (> 60)
[2017-09-28 06:16] LABS: Thyroid Stimulating Hormone 2.753 mcIU/mL (0.350-4.840)
[2017-09-28] MEDS ORDERED: Piperacillin/Tazobactam 3.375 GM in D5% in Water 50 ML IVPB SCH (08:00)
--- NOTE | 2017-09-28 11:59 | Event Note ---
Date of Encounter: 09/28/17 Time of Encounter: 10:40 Patient is an 82y/o male admitted from [facility] for management for paroxysmal afib and HCAP. patient seen and examined at bedside. Resting comfortably in bed and denies any chest pain or palpitations at this time. Afib: Will continue cardiac monitoring, home dose of Sotalol 40mg BID, ASA, Plavix. Awaiting cardiology follow up HCAP: continue empiric abx and follow up blood cultures continue home medications palliative care consultation requested to establish goals of care and advance directives.
[2017-09-28] MEDS ORDERED: Famotidine 20 MG TABLET PO SCH (12:00)
[2017-09-28] MEDS: Carbidopa/Levodopa 25/100 TABLET PO SCH ×3 (12:52→23:49)
--- NOTE | 2017-09-28 13:11 | Electrophysiology Consult Note ---
Addendum entered and electronically signed by Sancho Saba CNP 09/28/17 14:11: PLEASE USE CARDIOLOGY CONSULT Upon further investigation, EKG from 09/14/17 was not this pt, so there has been no confirmed documented breakthrough of A-Fib/Flutter. Will not involve EP since there is no documented recurrence. Will discuss all the above with Dr. Howe and make changes as necessary. Original Note: <Sancho Saba - Last Filed: 09/28/17 13:20> Date of Encounter: 09/28/17 Time of Encounter: 13:10 Assessment and Plan (1) Paroxysmal atrial fibrillation Current Visit: No Status: Acute Recently started on Sotalol for rhythm control strategy. HR did not tolerate 80mg BID, was reduced to 40mg BID during his last hospitalization. Reportedly developed sudden onset of dyspnea, felt as though he was in A-fib with heart rate reportedly varying from 49-118. K 4.0, Mag 1.7, TSH 2.753. EKG on admission sinus rhythm. Telemetry reviewed--24 hr AVG HR 62, maintaining SR. QT/QTc 383/414ms. On further review--EKG from 09/14/17 pt had EKG with regular, wide complex tachycardia, suspicious for A-Flutter. Continue Sotalol 40mg BID and Toprol XL 12.5 daily (added by primary team). Will further discuss with Dr. Sandro Marcelo for recommendations. Will not increase Sotalol at this time given HR did not tolerate higher dose when initiated last month. No confirmation of A-Fib on this admission. Not anticoagulated due to hx of GI bleed. Continue ASA and Plavix. Continue to monitor tele. Discussion w patient/family: The assessment and plan as outlined above was discussed with the patient and/or family members who expressed understanding and agreement. All questions were answered. Thank you for involving us in the care of your patient. Please call with any questions. I will discuss all the above with Dr. Sandro Marcelo and make changes as necessary. History of Present Illness Consult date: 09/28/17 Requesting physician: Che You Consult reason: PAF Chief complaint: dyspnea History of present illness: Mr. Li is a 82 year old male with a relevant past medical history of dementia , Parkinson's disease, PAF, CAD s/p PCI, hypothyroidism, GERD. 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 Sotalol started during hospitalization 08/2017. HR did not tolerate 80mg BID, reduced dose to 40mg BID. He is not anticoagulated--previously on Coumadin, stopped due to GI bleed. Pt has advanced Parkinson's and is not in room. Much of HPI obtained from hospitalist H&P. Per H&P, pt presented to ER for shortness of breath, felt as though he was in A-Fib. Patient's checked the vitals, heart rate varied from 49-118. Patient denies chest pain. He denies nausea vomiting diaphoresis. Patient has no fever or cough. Chest x-ray shows suspected pneumonia. EKG on admission shows sinus rhythm as well as telemetry. EP consulted for further recommendations. Limited echo 08/04/17 EF 60-65%. Past Med Surg Social Fam HX - Past Medical History Medical history: atrial fibrillation, coronary artery disease, dementia, GERD, thyroid disease, other Psychiatric history: no psych history - Past Surgical History Surgical History: other - Social History Smoking Status: Never smoker Smokeless Tobacco Status: No Alcohol use: none Drug use: none - Family History Mother Living Status: Father Living Status: Medications and Allergies Aspirin 81 mg PO QPM 11/27/15 [History] Clopidogrel [Plavix] 75 mg PO QTUTHSA 11/27/15 [History] Furosemide [Lasix] 20 mg PO Q48H 11/27/15 [History] Pantoprazole Sodium [Protonix] 40 mg PO DAILY 11/27/15 [History] Pramipexole Di-HCl [Pramipexole Dihydrochloride] 0.5 mg PO TID 11/27/15 [History ] Simvastatin [Zocor] 20 mg PO QPM 11/27/15 [History] Carbidopa/Levodopa [Carbidopa-Levodopa 25-100 Tab] 2 tab PO QID 08/21/17 [ History] Levothyroxine Sodium [Levoxyl] 112 mcg PO DAILY 08/21/17 [History] Docusate [Colace] 100 mg PO BID 08/26/17 [History] Ergocalciferol (VITAMIN D2) [Vitamin D] 400 unit PO DAILY 08/26/17 [History] Loratadine [Claritin] 10 mg PO DAILY 08/26/17 [History] Ranitidine HCl [Acid Rig Mechanic] 75 mg PO Q48H 08/26/17 [History] Sotalol [Betapace] 40 mg PO Q12HR #60 tablet 09/06/17 [Rx] Metoprolol XL (24 HR) Succ [Toprol XL] 12.5 mg PO DAILY 09/28/17 [History] Tizanidine HCl 2 mg PO BID 09/28/17 [History] 3 Allergy/AdvReac Type Severity Reaction Status Date / Time diphenhydramine Allergy See Verified 09/27/17 22:32 [From Eris] Comments All Systems Review: A 10-system review of systems was performed and is negative for pertinent findings except as documented above in the HPI. - Cardiovascular Cardiovascular: as per HPI, dyspnea at rest, dyspnea on exertion - Respiratory Respiratory: dyspnea Physical Examination Vital Signs, Last 4 Hours Temp Pulse Resp BP Pulse Ox 09/28/17 12:44 98.8 F 65 16 113/68 95 Vital Signs Temp Pulse Resp BP Pulse Ox 09/28/17 12:44 98.8 F 65 16 113/68 95 09/28/17 09:04 97.8 F 64 16 99/54 94 09/28/17 04:41 98.0 F 54 16 109/63 97 09/28/17 01:08 18 106/68 09/28/17 00:30 57 18 111/76 96 09/27/17 23:29 75 14 100/75 96 09/27/17 22:40 95 09/27/17 22:23 98 F 76 18 121/74 93 Intake and Output 09/27/17 09/28/17 09/28/17 23:59 07:59 15:59 Intake Total 150 / 150 540 / 540 Output Total 250 / 250 Balance 150 / 150 290 / 290 Intake: IV Fluids 150 / 150 Levaquin Premix 750mg/150 mL 150 / 150 750 mg In 150 ml @ 100 mls/hr IVPB ONCE ONE Rx#:[id number] Oral 540 / 540 Output: Urine 250 / 250 Other: Meal Breakfast Percent of Meal Consumed 75% Weight 78.925 kg General: Conversant, No Apparent Distress HEENT: Atraumatic, Normocephaly, Mucus Membranes Moist Neck: No JVD, Normal carotid pulses Cardiac: Reg Rate and Rhythm, Normal S1 and S2, No Murmur Lungs: Normal Breath Sounds, No Wheeze, Rales, Rhonchi Neuro: Alert and responsive, No focal deficits noted Abdomen: Soft, Non-Tender Skin: No rashes noted on visualized skin Musculoskeletal: No Chest Wall Tenderness Extremities: No Clubbing, No Cyanosis, No Edema, Normal Pulses Results 09/28/17 05:24 09/28/17 05:24 Lab Results 09/28/17 09/28/17 05:24 05:24 WBC 5.9 Hgb 12.7 L Hct 38.0 Plt Count 149 Sodium 141 Potassium 4.0 Chloride 104 Carbon Dioxide 32 H BUN 11 Creatinine 0.86 Glucose 92 Calcium 8.8 Magnesium 1.7 TSH 2.753 Short CBC 09/28/17 09/27/17 Range/Units 05:24 22:37 WBC 5.9 6.3 (4.3-11.1) K/mcL Hgb 12.7 L 14.1 (12.9-16.9) g/dL Hct 38.0 42.1 (37.5-50.1) % Plt Count 149 183 (140-400) K/mcL Neutrophils # 4.1 3.2 (1.6-8.9) K/mcL BMP 09/28/17 09/27/17 Range/Units 05:24 22:37 Sodium 141 137 (136-145) mEq/L Potassium 4.0 3.7 (3.5-4.5) mEq/L Chloride 104 101 (98-109) mEq/L Carbon Dioxide 32 H 30 H (19-29) mEq/L BUN 11 11 (8-26) mg/dL Creatinine 0.86 0.84 (0.72-1.25) mg/dL Glucose 92 101 H (70-99) mg/dL Calcium 8.8 9.0 (8.6-10.8) mg/dL Cardiac Enzymes 09/27/17 Range/Units 22:37 Troponin I 0.00 (0-0.03) ng/mL Impressions Chest X-Ray 09/27/17 22:25 IMPRESSION: Left basilar atelectasis or pneumonia. D/ / Devon Bae MD / Devon Bae MD Interpreting Provider: Devon Bae MD Active Medications Acetaminophen (Tylenol) 650 mg PO Q6HR PRN PRN Reason: Mild Pain (1-3) Stop: 03/30/18 01:15 Aspirin (Aspirin) 81 mg PO QPM [facility] Stop: 03/30/18 18:01 Carbidopa/Levodopa (Sinemet) 2 each PO QID [facility] Stop: 03/30/18 13:01 Last Admin: 09/28/17 12:52 Dose: 2 each Clopidogrel Bisulfate (Plavix) 75 mg PO QTUTHSA [facility] Stop: 03/31/18 09:01 Docusate Sodium (Colace) 100 mg PO BID [facility] PRN Reason: Protocol Stop: 03/30/18 21:01 Famotidine (Pepcid) 10 mg PO Q48H [facility] Stop: 03/30/18 12:01 Last Admin: 09/28/17 12:52 Dose: 10 mg Furosemide (Lasix) 20 mg PO Q48H [facility] Stop: 03/30/18 01:31 Last Admin: 09/28/17 05:31 Dose: Not Given Levofloxacin/Dextrose (Levaquin Premix 750mg/150 Ml) 750 mg in 150 mls @ 100 mls/hr IVPB DAILY@1800 [facility] PRN Reason: Protocol Stop: 03/30/18 18:01 Piperacillin Sod/Tazobactam (Sod 3.375 gm/ Dextrose) 50 mls @ 12.5 mls/hr IVPB Q8HR [facility] Stop: 03/30/18 08:01 Last Admin: 09/28/17 09:55 Dose: 12.5 mls/hr Sodium Chloride (0.9 % Sodium Chloride) 250 mls @ 25 mls/hr IVC .Q10H [facility] Stop: 03/30/18 01:46 Last Admin: 09/28/17 01:37 Dose: 25 mls/hr Vancomycin HCl 1,250 mg/ (Dextrose) 250 mls @ 166.67 mls/hr IVPB Q24H [facility] Stop: 03/31/18 04:01 Levothyroxine Sodium (Synthroid) 112 mcg PO DAILY [facility] Stop: 03/30/18 09:01 Last Admin: 09/28/17 09:44 Dose: 112 mcg Loratadine (Claritin) 10 mg PO DAILY [facility] Stop: 03/31/18 09:01 Metoprolol Succinate (Toprol Xl) 12.5 mg PO DAILY [facility] Stop: 03/31/18 09:01 Naloxone HCl (Narcan) 0.4 mg IVP Q2MIN PRN PRN Reason: Opioid Reversal Stop: 03/30/18 01:15 Omeprazole (Prilosec) 40 mg PO DAILY [facility] Stop: 03/31/18 09:01 Pramipexole Dihydrochloride (Mirapex) 0.5 mg PO TID [facility] Stop: 03/30/18 09:01 Last Admin: 09/28/17 09:44 Dose: 0.5 mg Simvastatin (Zocor) 20 mg PO QPM [facility] PRN Reason: Protocol Stop: 03/30/18 18:01 Sotalol HCl (Betapace) 40 mg PO Q12HR [facility] Stop: 03/30/18 06:01 Tizanidine HCl (Zanaflex) 2 mg PO BID [facility] Stop: 03/30/18 21:01 Vitamin D (Vitamin D) 1,000 unit PO DAILY [facility] Stop: 03/31/18 09:01 - Imaging and Cardiology Echo: report reviewed - EKG Interpretation EKG results cardiology: personally reviewed (SR), other (24 hr tele AVG HR 62, SR.) Consult Discharge Plan - Plan Referrals: Selina Laws MD [Primary Care Provider] - <CarleyMarjorie - Last Filed: 09/28/17 17:13> Date of Encounter: 09/28/17 - Attending Attestation I have personally performed a face to face evaluation on this patient. I have reviewed and agree with the care plan with LONG TERM CARE PHARMACIST: Mr. Li presented with SOB and was found to have a suspected pneumonia on CXR. Per 's report, he had an irregular heart beat at home prior to presentation. Also per 's report, he was in and out of AFIB while in the ER. However, there is no documentation supporting that. While on the floor, he has been in normal sinus rhythm. It should be noted that recently he was admitted in August 2017 for PAF and initiated on sotalol. His dose of sotalol was decreased due to bradycardic heart rates during that stay to 40mg BID. Again presently he is in normal sinus rhythm. The hospitalist team also restarted low-dose Toprol to his regimen which she seems to be tolerating. At this time, we do not have documentation that the patient was in atrial fibrillation. Recommend observing the patient on telemetry while on present dose of sotalol and low dose toprol. We will have the EP service evaluate the patient tomorrow for further recommendations. He is not anticoagulated due to history of GI bleeding. Continue aspirin and Plavix. Spoke with patient's at the bedside. She agrees with the plan. Assessment and Plan Discussion w patient/family: The assessment and plan as outlined above was discussed with the patient and/or family members who expressed understanding and agreement. All questions were answered. Thank you for involving us in the care of your patient. Please call with any questions. History of Present Illness History of present illness: Mr. Li is a 82 year old male All Systems Review: A 10-system review of systems was performed and is negative for pertinent findings except as documented above in the HPI. Results 09/28/17 05:24 09/28/17 05:24 Lab Results 09/28/17 09/28/17 05:24 05:24 WBC 5.9 Hgb 12.7 L Hct 38.0 Plt Count 149 Sodium 141 Potassium 4.0 Chloride 104 Carbon Dioxide 32 H BUN 11 Creatinine 0.86 Glucose 92 Calcium 8.8 Magnesium 1.7 TSH 2.753
--- NOTE | 2017-09-28 13:13 | Electrocardiograph Report ---
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
--- NOTE | 2017-09-28 14:37 | Palliative - Consult Note ---
<Cruzito Oliver - Last Filed: 09/28/17 15:00> Date of Encounter: 09/28/17 Time of Encounter: 14:00 - Assessment and Plan (1) HCAP (healthcare-associated pneumonia) Current Visit: Yes Status: Acute Assessment and plan: Chest x-ray performed on 09/27/17 demonstrated the presence of bibasilar atelectasis or pneumonia. -Patient is on day 2 of IV antibiotics: Levaquin 750, vancomycin 1250 every 12, Zosyn 3.375 every 8 hours. (2) Atrial fibrillation with RVR Current Visit: No Status: Acute Assessment and plan: Patient has known history of paroxysmal atrial fibrillation. -Per cardiology: Sotalol 40 mg by mouth twice a day and Toprol 12.5 daily. ASA 81 mg, Plavix 75 mg by mouth. -Continuous cardiac monitoring. -Average heart rate of less than 24 hours has been 62 bpm. -Patient is currently in sinus rhythm. -Cardiac diet. (3) Advanced care planning/counseling discussion Current Visit: Yes Status: Acute Assessment and plan: Patient enrolled in [facility] hospice over the last year for Parkinson Disease. -Patient will likely return post-discharge. -CODE STATUS was discussed with both patient and family members; Patient requests to be FULL CODE. (4) DVT prophylaxis Current Visit: No Status: Acute Assessment and plan: EPCDs. -Up to chair 3 times a day. -Patient is currently not anticoagulated due to history of GI bleed. (5) Parkinson disease Current Visit: No Status: Chronic Assessment and plan: Patient has been diagnosed Parkinson's disease. -Patient is no longer to ambulate on his own. -Beginning to have difficulty standing on his own. -Patient is still able to feed himself. Palliative-CN HPI - Data of Consult Requesting Physician: Nancy Hidalgo MD Primary Care Provider: Selina Laws MD - Consult Narrative Palliative Care/Comfort Measures: Hospice care History of present illness: Mr. Li is a 82 year old male with a past medical history of paroxysmal atrial fibrillation who presented to the hospital with a chief complaint of shortness of breath and abnormal vital signs. Patient was feeling short of breath and asked his to take his vital signs at home. His heart rate at that time ranged from 48-120. His blood pressure was elevated at 150. Patient was recently started on sotalol for rhythm control. EKG performed in the emergency department revealed sinus rhythm. Patient was placed on sotalol 40 mg twice a day and Toprol 12.5 daily. No confirmation of atrial fibrillation on this admission. Patient was seen and examined at bedside this afternoon. CODE STATUS and hospice care were discussed with patient's family. 2 family members at bedside. According to the patient's , patient is a full code. He has been at [facility] for approximately one year. The reason he was admitted to hospice was because of Parkinson's disease. According to his family, he has been in the hospital 3 times in the last several months. Patient is no longer able to walk on his own. Beginning to have difficulty standing. Able to self- feed. Patient denies any shortness of breath, chest pain, and palpitations. He is in no distress and has no complaints at this time. CC: Nancy Hidalgo MD Past Med Surg Social Fam HX - Past Medical History Medical history: atrial fibrillation, coronary artery disease, dementia, GERD, thyroid disease, other Psychiatric history: no psych history - Past Surgical History Surgical History: other - Social History Smoking Status: Never smoker Smokeless Tobacco Status: No Alcohol use: none Drug use: none - Family History Mother Living Status: Father Living Status: Medications and Allergies Aspirin 81 mg PO QPM 11/27/15 [History] Clopidogrel [Plavix] 75 mg PO QTUTHSA 11/27/15 [History] Furosemide [Lasix] 20 mg PO Q48H 11/27/15 [History] Pantoprazole Sodium [Protonix] 40 mg PO DAILY 11/27/15 [History] Pramipexole Di-HCl [Pramipexole Dihydrochloride] 0.5 mg PO TID 11/27/15 [History ] Simvastatin [Zocor] 20 mg PO QPM 11/27/15 [History] Carbidopa/Levodopa [Carbidopa-Levodopa 25-100 Tab] 2 tab PO QID 08/21/17 [ History] Levothyroxine Sodium [Levoxyl] 112 mcg PO DAILY 08/21/17 [History] Docusate [Colace] 100 mg PO BID 08/26/17 [History] Ergocalciferol (VITAMIN D2) [Vitamin D] 400 unit PO DAILY 08/26/17 [History] Loratadine [Claritin] 10 mg PO DAILY 08/26/17 [History] Ranitidine HCl [Acid Night Custodian] 75 mg PO Q48H 08/26/17 [History] Sotalol [Betapace] 40 mg PO Q12HR #60 tablet 09/06/17 [Rx] Metoprolol XL (24 HR) Succ [Toprol XL] 12.5 mg PO DAILY 09/28/17 [History] Tizanidine HCl 2 mg PO BID 09/28/17 [History] 3 Allergy/AdvReac Type Severity Reaction Status Date / Time diphenhydramine Allergy See Verified 09/27/17 22:32 [From Benadryl] Comments - Constitutional Constitutional ROS PAL: no chills, no fatigue, no lethargy - Cardiovascular Cardiovascular ROS: no chest pain, no edema, no irregular heart rhythm - Respiratory Respiratory: as per HPI, no cough, no dyspnea, no wheezing, no stridor, no change in phlegm color - Gastrointestinal Gastrointestinal: no abdominal pain Palliative Care-Exam - Constitutional Vitals: Temp Pulse Resp BP Pulse Ox 98.8 F 65 16 113/68 95 09/28/17 12:44 09/28/17 12:44 09/28/17 12:44 09/28/17 12:44 09/28/17 12:44 General appearance: Present: no acute distress - Head Head Exam: Present: atraumatic, normal inspection, normocephalic - Neck Neck exam: Present: normal inspection. Absent: lymphadenopathy, tenderness, thyromegaly - Respiratory Respiratory exam: Present: CTAB - Cardiovascular Cardiovascular exam: Present: RRR, +S1, +S2. Absent: irregular rhythm, JVD - GI/Abdominal Exam GI/Abdominal exam: Present: normal bowel sounds, soft. Absent: tenderness Internal Medicine - CN: Reslt - Labs CBC & Chem 7: 09/28/17 05:24 09/28/17 05:24 Labs: Short CBC 09/28/17 Range/Units 05:24 WBC 5.9 (4.3-11.1) K/mcL Hgb 12.7 L (12.9-16.9) g/dL Hct 38.0 (37.5-50.1) % Plt Count 149 (140-400) K/mcL Neutrophils # 4.1 (1.6-8.9) K/mcL BMP 09/28/17 05:24 Sodium 141 Potassium 4.0 Chloride 104 Carbon Dioxide 32 H BUN 11 Creatinine 0.86 Glucose 92 Calcium 8.8 - ABG Interpretation ABG results: PT/INR, D-dimer PT 12.3 Seconds (9.4-12.1) H 09/27/17 22:37 Consult Discharge Plan - Plan Referrals: Selina Laws MD [Primary Care Provider] - Palliative Quality Palliative Quality: Screen for Code Status: Yes, Screen for Goals of Care: Yes, Screen for Pain: Yes, If Pain Regimen Started, Initiate Bowel Regimen: No, Screen for Nausea/Vomitting: No Code Status: 09/28/17 01:14 Resuscitation Status: Active [RES] Routine Comment: Resuscitation Status: Full Code <Efra Troncoso - Last Filed: 09/29/17 06:57> Date of Encounter: 09/29/17 Palliative-CN HPI - Data of Consult Requesting Physician: Nancy Hidalgo MD Primary Care Provider: Selina Laws MD - Consult Narrative History of present illness: Mr. Li is a 82 year old male CC: Nancy Hidalgo MD Palliative Care-Exam - Constitutional Vitals: Temp Pulse Resp BP Pulse Ox 98.4 F 60 16 122/75 95 09/29/17 00:02 09/29/17 00:02 09/29/17 00:02 09/29/17 00:02 09/29/17 00:02 Internal Medicine - CN: Reslt - Labs CBC & Chem 7: 09/29/17 06:04 09/29/17 06:04 Labs: Short CBC 09/29/17 Range/Units 06:04 WBC 6.6 (4.3-11.1) K/mcL Hgb 11.7 L (12.9-16.9) g/dL Hct 35.3 L (37.5-50.1) % Plt Count 155 (140-400) K/mcL Neutrophils # 3.6 (1.6-8.9) K/mcL [facility] 09/29/17 06:04 Sodium 140 Potassium 3.9 Chloride 104 Carbon Dioxide 31 H BUN 9 Creatinine 0.93 Glucose 106 H Calcium 8.8 - ABG Interpretation ABG results: PT/INR, D-dimer PT 12.3 Seconds (9.4-12.1) H 09/27/17 22:37 - Attending Attestation I examined this patient and my medical decision-making was reviewed with the Resident Physician. I agree with the documented findings, disposition and treatment plan as described except to the extent set forth below. Palliative Quality Code Status: 09/28/17 01:14 Resuscitation Status: Active [RES] Routine Comment: Resuscitation Status: Full Code
[2017-09-28] MEDS: Piperacillin/Tazobactam 3.375 GM in D5% in Water 50 ML IVPB SCH (16:36)
[2017-09-28] MEDS: Aspirin 81 MG TAB.CHEW PO SCH (17:51)
[2017-09-28] MEDS ORDERED: Levofloxacin 750 MG/150 ML 750 MG/150 ML BAG IVPB SCH ×2 (18:00→21:00)
[2017-09-28] MEDS: tiZANidine 4 MG TABLET PO SCH (23:48)
[2017-09-29] MEDS: Piperacillin/Tazobactam 3.375 GM in D5% in Water 50 ML IVPB SCH ×2 (01:52→08:44)
[2017-09-29] MEDS ORDERED: Vancomycin 1,250 MG in D5% in Water 250 ML IVPB SCH (04:00)
[2017-09-29 06:25] LABS: Basophils % 0.5 %; Eosinophils # 0.2 K/mcL (0.0-0.6); Eosinophils % 2.3 %; Hematocrit 35.3 % (37.5-50.1); Hemoglobin 11.7 g/dL (12.9-16.9); Immature Granulocytes % 0.5 % (0-4); Lymphocytes # 2.2 K/mcL (0.6-4.6); Lymphocytes % 33.4 %; Mean Corpuscular HGB Conc 33.1 g/dL (31.6-35.5); Mean Corpuscular Hemoglobin 30.9 pg (28.0-33.3); Mean Corpuscular Volume 93.1 fL (83.0-100.0); Mean Platelet Volume 11.3 fL (9.4-12.4); Monocytes # 0.5 K/mcL (0.0-1.3); Monocytes % 8.2 %; Neutrophils # 3.6 K/mcL (1.6-8.9); Platelet Count 155 K/mcL (140-400); Red Blood Count 3.79 M/mcL (4.19-5.50); Red Cell Distribution Width 11.7 % (11.5-14.5); Segmented Neutrophils % 55.1 %
[2017-09-29 06:36] LABS: BUN/Creatinine Ratio 10 (6-26); Blood Urea Nitrogen 9 mg/dL (8-26); Calcium 8.8 mg/dL (8.6-10.8); Carbon Dioxide 31 mEq/L (19-29); Chloride 104 mEq/L (98-109); Glucose 106 mg/dL (70-99); Magnesium 1.7 mg/dL (1.6-2.6); Osmolality,Calculated 289 (280-300); Phosphorous 2.8 mg/dL (2.3-4.7); Potassium 3.9 mEq/L (3.5-4.5); Sodium 140 mEq/L (136-145); eGFR For African Americans > 60 (> 60); eGFR For Non-African Americans > 60 (> 60)
[2017-09-29] MEDS: Carbidopa/Levodopa 25/100 TABLET PO SCH ×3 (08:43→17:42)
[2017-09-29] MEDS: tiZANidine 4 MG TABLET PO SCH (08:43)
[2017-09-29] MEDS ORDERED: Metoprolol XL (24 HR) Succ 25 MG TAB.ER.24H PO SCH (09:00)
[2017-09-29] MEDS ORDERED: Cholecalciferol (D-3) 1,000 UNIT TABLET PO SCH (09:00)
[2017-09-29] MEDS ORDERED: Loratadine 10 MG TABLET PO SCH (09:00)
--- NOTE | 2017-09-29 10:53 | Discharge Summary ---
Date of Encounter: 09/29/17 Time of Encounter: 10:51 - Discharge Diagnosis (1) Atrial fibrillation with RVR Priority: Primary Status: Acute (2) CAD (coronary artery disease) Priority: Secondary Status: Chronic Qualifiers: Coronary Disease-Associated Artery/Lesion type: [place] artery [place] vs. transplanted heart: saxman heart Associated angina: without angina Qualified Code(s): I25.10 - Atherosclerotic heart disease of [place] coronary artery without angina pectoris (3) DVT prophylaxis Priority: Secondary Status: Acute (4) HCAP (healthcare-associated pneumonia) Priority: Primary Status: Acute (5) Hypothyroidism (acquired) Priority: Secondary Status: Chronic - Discharge Medications Prescriptions: levoFLOXacin [Levaquin] 750 mg PO DAILY #5 tablet Home Medications: Aspirin 81 mg PO QPM 11/27/15 [History] Clopidogrel [Plavix] 75 mg PO QTUTHSA 11/27/15 [History] Furosemide [Lasix] 20 mg PO Q48H 11/27/15 [History] Pantoprazole Sodium [Protonix] 40 mg PO DAILY 11/27/15 [History] Pramipexole Di-HCl [Pramipexole Dihydrochloride] 0.5 mg PO TID 11/27/15 [History ] Simvastatin [Zocor] 20 mg PO QPM 11/27/15 [History] Carbidopa/Levodopa [Carbidopa-Levodopa 25-100 Tab] 2 tab PO QID 08/21/17 [ History] Levothyroxine Sodium [Levoxyl] 112 mcg PO DAILY 08/21/17 [History] Docusate [Colace] 100 mg PO BID 08/26/17 [History] Ergocalciferol (VITAMIN D2) [Vitamin D] 400 unit PO DAILY 08/26/17 [History] Loratadine [Claritin] 10 mg PO DAILY 08/26/17 [History] Ranitidine HCl [Acid Customer Advisor] 75 mg PO Q48H 08/26/17 [History] Sotalol [Betapace] 40 mg PO Q12HR #60 tablet 09/06/17 [Rx] Metoprolol XL (24 HR) Succ [Toprol Xl] 12.5 mg PO DAILY 09/28/17 [History] Tizanidine HCl 2 mg PO BID 09/28/17 [History] levoFLOXacin [Levaquin] 750 mg PO DAILY #5 tablet 09/29/17 [Rx] Allergies/Adverse Reactions: 3 Allergy/AdvReac Type Severity Reaction Status Date / Time diphenhydramine Allergy See Verified 09/27/17 22:32 [From Benadryl] Comments Date of admission: 09/28/17 01:07 Primary care physician: Selina Laws MD Consults: 09/28/17 01:20 Consult to Cardiology [CONS] Routine Comment: Consulting Provider: Cardiology [facility] Reason for Consult: Systemic A Fib Call Completed: No 09/28/17 10:25 Consult to Electrophysiology (EP) [CONS] Routine Consulting Provider: Electrophysiology Elizabeth Reason for Consult: atrial fibrillation Call Completed: Yes 09/28/17 11:51 Consult to Palliative Care [CONS] Routine Comment: Consulting Provider: Palliative Care [place] Reason for Consult: goals of care/code status Call Completed: Yes Discharging clinician: Meghna Iglesias Anticipated date of discharge: 09/29/17 - Patient Status Disposition: Hospice - Home Condition: Good Functional capacity at discharge: uses cane/walker Overall status at discharge: patient is back to baseline - Discharge Instructions Follow Up With: Selina Laws MD [Primary Care Provider] - Additional Instructions: Please follow up with your primary care physician and plastic shaper within one week after your discharge from the hospital Please continue oral antibiotics for five more days please resume all your other home medications as prescribed by your primary care physician and plastic shaper - Diet and Activity Activity: resume usual activities as tolerated Diet: diabetic diet, low fat, low cholesterol, low salt diet Hospital course: Mr. Li is a 82 year old male with PMH of CAD s/p PCI, Hypothyroidism, Afib, parkinson's disease who was admitted for managment of paroxysmal afib with RVR and HCAP. Pt's rate was noted to remain controlled with his home medications and cardiology evaluation was further requested. He was started on empiric IV abx for HCAP. Pt was evaluated by cardiology and no change in his home medications were made. pt remained asymptomatic and tolerated abx therapy well. He is back to his baseline status. He is currently with [facility] due to which palliative care was consulted to establish goals of care. Pt wishes to remain full code and be discharged with [facility]. At this time he is hemodynamically stable and will be discharged to home pending cardiology clearance. - Time Spent with Patient Total time spent providing and/or coordinating discharge services: Greater than 30 minutes - Constitutional Vitals: Temp Pulse Resp BP Pulse Ox 97.9 F 60 16 150/73 98 09/29/17 08:39 09/29/17 08:39 09/29/17 08:39 09/29/17 08:39 09/29/17 08:39 General appearance: Present: A&O X 3 (diffuse tremors at rest), no acute distress, answers questions appropriately - Head Head exam: Present: atraumatic, normocephalic - Eye Eye exam: Present: conjuntiva pink, sclera anicteric - Respiratory Respiratory exam: Present: CTAB. Absent: accessory muscle use, rales, rhonchi, wheezes - Cardiovascular Cardiovascular exam: Present: RRR, +S1, +S2. Absent: diastolic murmur, gallop, rubs, systolic murmur - GI/Abdominal GI/Abdominal exam: Present: normal bowel sounds, soft, no peritoneal signs. Absent: distended, tenderness - Extremities Exam Extremities exam: Present: warm, radial pulses palpable and symmetrical. Absent : calf tenderness - Neurological Exam Neurological exam: Present: alert, oriented X3 - VTE Documentation of Mechanical Device: Intermittent pneumatic compression device
--- NOTE | 2017-09-29 11:01 | Physician Discharge Referral ---
Home Health/Hosp Referral Info Transfer to: Hospice Provider in Charge Post Discharge: PCP - Diagnosis (1) Atrial fibrillation with RVR Priority: Primary Status: Acute (2) CAD (coronary artery disease) Priority: Secondary Status: Chronic (3) DVT prophylaxis Priority: Secondary Status: Acute (4) HCAP (healthcare-associated pneumonia) Priority: Primary Status: Acute (5) Hypothyroidism (acquired) Priority: Secondary Status: Chronic - Respiratory Orders Smoking Cessation: Smoking cessation has been advised. For more information, call the [place] [employer] Quit Line at 7-735-QBOX-NOW. - Services Needed Following services are medically necessary services: Nursing, Home Health Aide, Physical Therapy, Occupational Therapy, Med Social Work - Transfer Medications Prescriptions: levoFLOXacin [Levaquin] 750 mg PO DAILY #5 tablet Home Medications: Aspirin 81 mg PO QPM 11/27/15 [History] Clopidogrel [Plavix] 75 mg PO QTUTHSA 11/27/15 [History] Furosemide [Lasix] 20 mg PO Q48H 11/27/15 [History] Pantoprazole Sodium [Protonix] 40 mg PO DAILY 11/27/15 [History] Pramipexole Di-HCl [Pramipexole Dihydrochloride] 0.5 mg PO TID 11/27/15 [History ] Simvastatin [Zocor] 20 mg PO QPM 11/27/15 [History] Carbidopa/Levodopa [Carbidopa-Levodopa 25-100 Tab] 2 tab PO QID 08/21/17 [ History] Levothyroxine Sodium [Levoxyl] 112 mcg PO DAILY 08/21/17 [History] Docusate [Colace] 100 mg PO BID 08/26/17 [History] Ergocalciferol (VITAMIN D2) [Vitamin D] 400 unit PO DAILY 08/26/17 [History] Loratadine [Claritin] 10 mg PO DAILY 08/26/17 [History] Ranitidine HCl [Acid Ground Products Director] 75 mg PO Q48H 08/26/17 [History] Sotalol [Betapace] 40 mg PO Q12HR #60 tablet 09/06/17 [Rx] Metoprolol XL (24 HR) Succ [Toprol Xl] 12.5 mg PO DAILY 09/28/17 [History] Tizanidine HCl 2 mg PO BID 09/28/17 [History] levoFLOXacin [Levaquin] 750 mg PO DAILY #5 tablet 09/29/17 [Rx] Allergies/Adverse Reactions: 3 Allergy/AdvReac Type Severity Reaction Status Date / Time diphenhydramine Allergy See Verified 09/27/17 22:32 [From Eris] Comments Certification: Further, I certify that my clinical findings support that this patient is homebound (i.e. absences from home require considerable and taxing effort and are for medical reasons or druze services or infrequently or short duration when for other reasons) because: Homebound Reason: Patient requires assistance of a person or device to safely leave home Attestation: My signature below is to certify that this patient is under my care and that I, or nurse practitioner, or a physician's web assistant working with me, has a face-to -face encounter with this patient.
--- NOTE | 2017-09-29 11:52 | Electrophysiology Consult Note ---
<Linn Duncan - Last Filed: 09/29/17 12:18> Date of Encounter: 09/29/17 Time of Encounter: 10:30 Assessment and Plan (1) Paroxysmal atrial fibrillation Current Visit: No Status: Chronic Per EP: -Recently started on Sotalol for rhythm control strategy. HR did not tolerate 80mg BID, was reduced to 40mg BID during his last hospitalization. -Reportedly developed sudden onset of dyspnea, felt as though he was in A-fib with heart rate reportedly varying from 49-118, per wifes reports. Patient states he had palpitations. -K 4.0, Mag 1.7, TSH 2.753. -EKG on admission sinus rhythm. -Telemetry reviewed with average HR previous 12 hours noted to be 57, sinus bradycardia. PVCs and PACs noted. -Not anticoagulated due to hx of GI bleed. Continue ASA and Plavix. -Unable to locate any documentation, strip, of ECG of atrial fibrillation this admission. -Continue Sotalol 40mg BID and Toprol XL 12.5 daily (added by primary team). -Can consider holter monitor at discharge. -EP will sign off and will follow in outpatient setting. Follow up set. Discussion w patient/family: The assessment and plan as outlined above was discussed with the patient who expressed understanding and agreement. All questions were answered. Thank you for involving us in the care of your patient. Please call with any questions. Discussed and reviewed with Dr.John Marcelo History of Present Illness Consult date: 09/14/17 Requesting physician: Linn Duncan Consult reason: PAF Chief complaint: elevated HR History of present illness: Mr. Li is a 82 year old male with a relevant past medical history of dementia , Parkinson's disease, PAF, CAD s/p PCI, hypothyroidism, GERD. 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 Patient was recently admitted and started on sotalol, did not tolerate 80mg dose and was discharged with 40mg dose. Patient is not on anticoagulation due to history of GI bleed. At time of examination, no family at bedside. Patient has known parkinsons and is only able to answer questions with one word answers. Per reports, states HRs at home were fluctuating from 40-110s and she was concered that patient was in atrial fibrillation. Patient states yes when asked if he was having palpitations. Patient denies current palpitations. Past Med Surg Social Fam HX - Past Medical History Attestation: Yes The following information was validated with the patient. Source: patient, old records reviewed Medical history: atrial fibrillation, coronary artery disease, dementia, GERD, thyroid disease, other Psychiatric history: no psych history - Past Surgical History Surgical History: other - Social History Smoking Status: Never smoker Smokeless Tobacco Status: No Alcohol use: none Drug use: none - Family History Mother Living Status: Father Living Status: Medications and Allergies Aspirin 81 mg PO QPM 11/27/15 [History] Clopidogrel [Plavix] 75 mg PO QTUTHSA 11/27/15 [History] Furosemide [Lasix] 20 mg PO Q48H 11/27/15 [History] Pantoprazole Sodium [Protonix] 40 mg PO DAILY 11/27/15 [History] Pramipexole Di-HCl [Pramipexole Dihydrochloride] 0.5 mg PO TID 11/27/15 [History ] Simvastatin [Zocor] 20 mg PO QPM 11/27/15 [History] Carbidopa/Levodopa [Carbidopa-Levodopa 25-100 Tab] 2 tab PO QID 08/21/17 [ History] Levothyroxine Sodium [Levoxyl] 112 mcg PO DAILY 08/21/17 [History] Docusate [Colace] 100 mg PO BID 08/26/17 [History] Ergocalciferol (VITAMIN D2) [Vitamin D] 400 unit PO DAILY 08/26/17 [History] Loratadine [Claritin] 10 mg PO DAILY 08/26/17 [History] Ranitidine HCl [Acid Die Polisher] 75 mg PO Q48H 08/26/17 [History] Sotalol [Betapace] 40 mg PO Q12HR #60 tablet 09/06/17 [Rx] Metoprolol XL (24 HR) Succ [Toprol Xl] 12.5 mg PO DAILY 09/28/17 [History] Tizanidine HCl 2 mg PO BID 09/28/17 [History] levoFLOXacin [Levaquin] 750 mg PO DAILY #5 tablet 09/29/17 [Rx] 3 Allergy/AdvReac Type Severity Reaction Status Date / Time diphenhydramine Allergy See Verified 11/14/17 22:32 [From Eris] Comments All Systems Review: A 10-system review of systems was performed and is negative for pertinent findings except as documented above in the HPI. - Cardiovascular Cardiovascular: as per HPI, palpitations Physical Examination Vital Signs, Last 4 Hours Temp Pulse Resp BP Pulse Ox 09/29/17 08:39 97.9 F 60 16 150/73 98 General: Conversant, No Apparent Distress, Other (Answers with one word answers. ) HEENT: Atraumatic, Normocephaly, Mucus Membranes Moist Neck: No JVD, Normal carotid pulses Cardiac: Reg Rate and Rhythm, Normal S1 and S2, No Murmur Lungs: Normal Breath Sounds, No Wheeze, Rales, Rhonchi Neuro: Alert and responsive, No focal deficits noted Abdomen: Soft, Non-Tender Skin: No rashes noted on visualized skin Musculoskeletal: No Chest Wall Tenderness Extremities: No Clubbing, No Cyanosis, No Edema, Normal Pulses Results 09/29/17 06:04 09/29/17 06:04 Lab Results Active Medications Acetaminophen (Tylenol) 650 mg PO Q6HR PRN PRN Reason: Mild Pain (1-3) Stop: 03/30/18 01:15 Aspirin (Aspirin) 81 mg PO QPM [facility] Stop: 03/30/18 18:01 Last Admin: 09/28/17 17:51 Dose: 81 mg Carbidopa/Levodopa (Sinemet) 2 each PO QID [facility] Stop: 03/30/18 13:01 Last Admin: 09/29/17 08:43 Dose: 2 each Clopidogrel Bisulfate (Plavix) 75 mg PO QTUTHSA [facility] Stop: 03/31/18 09:01 Last Admin: 09/29/17 12:06 Dose: 75 mg Docusate Sodium (Colace) 100 mg PO BID [facility] PRN Reason: Protocol Stop: 03/30/18 21:01 Last Admin: 09/29/17 08:43 Dose: 100 mg Famotidine (Pepcid) 10 mg PO Q48H [facility] Stop: 03/30/18 12:01 Last Admin: 09/28/17 12:52 Dose: 10 mg Furosemide (Lasix) 20 mg PO Q48H [facility] Stop: 03/30/18 01:31 Last Admin: 09/28/17 05:31 Dose: Not Given Sodium Chloride (0.9 % Sodium Chloride) 250 mls @ 25 mls/hr IVC .Q10H [facility] Stop: 03/30/18 01:46 Last Infusion: 09/28/17 23:51 Dose: Infused Vancomycin HCl 1,250 mg/ (Dextrose) 250 mls @ 166.67 mls/hr IVPB Q24H [facility] Stop: 03/31/18 04:01 Last Infusion: 09/29/17 07:28 Dose: Infused Piperacillin Sod/Tazobactam (Sod 3.375 gm/ Dextrose) 50 mls @ 12.5 mls/hr IVPB Q8HR [facility] Stop: 03/30/18 08:01 Last Admin: 09/29/17 08:44 Dose: 12.5 mls/hr Levofloxacin/Dextrose (Levaquin Premix 750mg/150 Ml) 750 mg in 150 mls @ 100 mls/hr IVPB DAILY@2100 [facility] PRN Reason: Protocol Stop: 03/30/18 21:01 Last Infusion: 09/29/17 07:27 Dose: Infused Levothyroxine Sodium (Synthroid) 112 mcg PO DAILY [facility] Stop: 03/30/18 09:01 Last Admin: 09/29/17 08:42 Dose: 112 mcg Loratadine (Claritin) 10 mg PO DAILY [facility] Stop: 03/31/18 09:01 Last Admin: 09/29/17 08:42 Dose: 10 mg Metoprolol Succinate (Toprol Xl) 12.5 mg PO DAILY [facility] Stop: 03/31/18 09:01 Last Admin: 09/29/17 08:43 Dose: 12.5 mg Naloxone HCl (Narcan) 0.4 mg IVP Q2MIN PRN PRN Reason: Opioid Reversal Stop: 03/30/18 01:15 Omeprazole (Prilosec) 40 mg PO DAILY [facility] Stop: 03/31/18 09:01 Last Admin: 09/29/17 08:42 Dose: 40 mg Pramipexole Dihydrochloride (Mirapex) 0.5 mg PO TID [facility] Stop: 03/30/18 09:01 Last Admin: 09/29/17 08:42 Dose: 0.5 mg Simvastatin (Zocor) 20 mg PO QPM [facility] PRN Reason: Protocol Stop: 03/30/18 18:01 Last Admin: 09/28/17 17:51 Dose: 20 mg Sotalol HCl (Betapace) 40 mg PO Q12HR [facility] Stop: 03/30/18 06:01 Last Admin: 09/29/17 05:51 Dose: Not Given Tizanidine HCl (Zanaflex) 2 mg PO BID [facility] Stop: 03/30/18 21:01 Last Admin: 09/29/17 08:43 Dose: 2 mg Vitamin D (Vitamin D) 1,000 unit PO DAILY [facility] Stop: 03/31/18 09:01 Last Admin: 09/29/17 08:42 Dose: 1,000 unit Laboratory Tests 09/28/17 09/29/17 09/29/17 05:24 06:04 06:04 Hgb 11.7 L Potassium 3.9 Creatinine 0.93 Magnesium 1.7 TSH 2.753 - Imaging and Cardiology Chest Xray: report reviewed Echo: report reviewed - EKG Interpretation EKG results cardiology: personally reviewed (ECG with SR, HR 77.), other ( Telemetry reviewed with average HR previous 12 hours noted to be 57, sinus bradycardia. PVCs and PACs noted.) Consult Discharge Plan - Plan Additional Instructions: Please follow up with your primary care physician and panel fitter within one week after your discharge from the hospital Please continue oral antibiotics for five more days please resume all your other home medications as prescribed by your primary care physician and panel fitter Referrals: Selina Laws MD [Primary Care Provider] - (HOSPICE TO ARRANGE) Julius Delgado MD [Partnered Physician] - (THE OFFICE WILL CALL YOU FOR AN APPOINTMENT) Prescriptions: levoFLOXacin [Levaquin] 750 mg PO DAILY #5 tablet <Sandro Marcelo - Last Filed: 09/29/17 16:09> Date of Encounter: 09/29/17 - Attending Attestation I have personally performed a face to face evaluation on this patient. I have reviewed and agree with the care plan. History and Exam by me shows: Palpitations at home, only sinus rhythm on monitor here. Would continue current medications. Assessment and Plan Discussion w patient/family: The assessment and plan as outlined above was discussed with the patient and/or family members who expressed understanding and agreement. All questions were answered. Thank you for involving us in the care of your patient. Please call with any questions. History of Present Illness History of present illness: Mr. Li is a 82 year old male All Systems Review: A 10-system review of systems was performed and is negative for pertinent findings except as documented above in the HPI. Results 09/29/17 06:04 09/29/17 06:04 Lab Results 09/29/17 09/29/17 06:04 06:04 WBC 6.6 Hgb 11.7 L Hct 35.3 L Plt Count 155 Sodium 140 Potassium 3.9 Chloride 104 Carbon Dioxide 31 H BUN 9 Creatinine 0.93 Glucose 106 H Calcium 8.8 Magnesium 1.7
[2017-09-29] MEDS: Aspirin 81 MG TAB.CHEW PO SCH (17:42)
[2017-09-29 17:51] VITALS: BP 114/65
[2017-09-29] MEDS ORDERED: Aminoglycoside Consult 1 EACH MC ONE (19:25)
== END 2017-09-29 19:26 | disposition hospice, home (50) ==
LOC: 3NENU 22:20 → EMEROO 22:20 → SUATTDRO 09-28 01:07 → 3NENU 09-28 02:19
PROVIDERS: ADMIT Internal Medicine; ATTEND Internal Medicine

== ENCOUNTER 2017-10-10 16:39 | Inpatient (IN) ==
[2017-10-10] MEDS ORDERED: 0.9 % Sodium Chloride 1,000 ML IVC ONE (16:54)
[2017-10-10] MEDS ORDERED: *HR* Metoprolol 5 MG/5 ML VIAL IVP ONE (16:54)
--- NOTE | 2017-10-10 17:03 | Emergency Department Note ---
Disposition Clinical Impression: Atrial fibrillation with RVR Disposition: Admitted As Inpatient Condition: Fair Referrals: Selina Laws MD [Primary Care Provider] - Forms: ED Satisfaction Letter, Work/School Release Time of Disposition: 20:12 Arrhythmia/Palpitations HPI - General Chief Complaint: ED General Medical Stated Complaint: low BP Time Seen by Provider: 10/10/17 17:03 Source: family Mode of arrival: EMS Limitations: altered mental status, physical limitation, age Nursing Notes Reviewed: Yes Vital Signs Reviewed: Yes - History of Present Illness HPI Narrative: 82-year-old male history of hypertension hyperlipidemia, atrial fibrillation controlled on sotalol 40 mg twice a day since complaining of rapid heart rate, palpitations. Patient also has a history of Parkinson's. Per his he started feeling palpitations and noted that his heart was fast, he came in for evaluation. Patient does have hospice but is a full code. Patient once and be evaluated and possibly revoke hospice to be coming into the emergency department and possibly admitted. He has had multiple episodes of A. fib no oblations was rate controlled and rhythm controlled previously Dr. Marcelo is his [employer], he was admitted several weeks ago for the same presentation and also had a Pneumonia as well. Patient denies productive cough at this time chest pain. Pt Subjective Complaint: rapid heart beat, "heart racing" Onset (ago): hour(s) Duration: intermittent Severity: mild Arrhythmia History: atrial fibrillation Associated symptoms: Denies: chest pain, shortness of breath, syncope, near- syncope, nausea - Related Data Home Medications Medication Instructions Recorded Confirmed Aspirin 81 mg PO QPM 11/27/15 09/28/17 Clopidogrel [Plavix] 75 mg PO QTUTHSA 11/27/15 09/28/17 Furosemide [Lasix] 20 mg PO Q48H 11/27/15 09/28/17 Pantoprazole Sodium [Protonix] 40 mg PO DAILY 11/27/15 09/28/17 Pramipexole Di-HCl [Pramipexole 0.5 mg PO TID 11/27/15 09/28/17 Dihydrochloride] Simvastatin [Zocor] 20 mg PO QPM 11/27/15 09/28/17 Carbidopa/Levodopa 2 tab PO QID 08/21/17 09/28/17 [Carbidopa-Levodopa 25-100 Tab] Levothyroxine Sodium [Levoxyl] 112 mcg PO DAILY 08/21/17 09/28/17 Docusate [Colace] 100 mg PO BID 08/26/17 09/28/17 Ergocalciferol (VITAMIN D2) 400 unit PO DAILY 08/26/17 09/28/17 [Vitamin D] Loratadine [Claritin] 10 mg PO DAILY 08/26/17 09/28/17 Ranitidine HCl [Acid [place]] 75 mg PO Q48H 08/26/17 09/28/17 Tizanidine HCl 2 mg PO BID 09/28/17 09/28/17 Previous Rx's Medication Instructions Recorded Sotalol [Betapace] 40 mg PO Q12HR #60 tablet 09/06/17 Allergies Allergy/AdvReac Type Severity Reaction Status Date / Time diphenhydramine AdvReac See Verified 10/10/17 19:11 [From Benadryl] Comments All systems ED: reviewed and negative except as stated. Review of Systems: As Per HPI Constitutional: Denies: fever, chills Eyes: Denies: eye pain ENT ED: Denies: ear pain Cardiovascular: Reports: as per HPI, palpitations. Denies: chest pain, dyspnea on exertion, orthopnea Respiratory: Denies: cough Gastrointestinal: Denies: abdominal pain, nausea, vomiting Genitourinary: Denies: urgency, dysuria Musculoskeletal: Denies: back pain Integumentary: Denies: rash Past Medical History - Past Medical History Attestation: Yes The following information was validated with the patient. Source: patient Medical history: Reports: atrial fibrillation, coronary artery disease, dementia , GERD, thyroid disease, other Surgical history: Reports: other Psychiatric history: Reports: no psych history - Social History Smoking Status: Never smoker Smokeless Tobacco Status: No Alcohol use: Reports: none Drug use: Reports: none Physical Exam Constitutional: limited parkinsonian in NAD, tachy irregular Neck: normal inspection, neck is supple, no JVD Resp: normal chest inspection, CTA bilaterally, no resp distress, no wheezes/ rales/rhonchi CV: Irregulalry irregular tachycardia Extremity: +2 bilateral radial and posterial tibial pulses, +3 pitting edema bilaterally GI: normal inspection, Soft, NTND, no peritoneal signs, no palpable abdominal aortic aneurysm Back: normal inspection, no tenderness to palpation Neuro: A&O3, gait untested due to parkinsons bed bound Skin: No rashes, skin warm, dry, intact Course Course Narrative: 82-year-old male with atrial fibrillation, appears be rapid A. fib rate of 150s , hemodynamically stable blood pressure is 110 patient will be given fluids and Lopressor bolus initially checking basic lab chest pain workup plan for likely admission. - Reevaluation(s) Reevaluation #1: Patient was started on Cardizem Cardizem drip, I did discuss with the hospitalist he is excepted the patient for admission for A. fib with RVR. Ducu. Time: 20:12 Vital Signs Pulse Rate 137 10/10/17 17:23 Respiratory Rate 22 10/10/17 17:23 Blood Pressure 110/56 10/10/17 17:23 O2 Sat by Pulse Oximetry 99 10/10/17 17:23 Pulse Rate 144 10/10/17 19:05 Respiratory Rate 18 10/10/17 19:05 Blood Pressure 100/74 10/10/17 19:05 O2 Sat by Pulse Oximetry 98 10/10/17 19:05 Oxygen Delivery Oxygen Delivery Nasal Cannula Arrhythmia/Palpitations - Differential Diagnosis Differential Diagnosis: Likely: palpitations, sinus tachycardia, artial arrhythmia - Medical Records Medical records reviewed: Yes I reviewed the patient's medical records. - Lab Data Lab results reviewed: Yes I reviewed the patient's lab results. Result diagrams: 10/10/17 17:22 10/10/17 17:22 Lab Results 10/10/17 10/10/17 10/10/17 Range/Units 17:22 17:22 17:22 WBC 9.8 (4.3-11.1) K/mcL RBC 4.82 (4.19-5.50) M/mcL Hgb 14.9 (12.9-16.9) g/dL Hct 44.8 (37.5-50.1) % MCV 92.9 (83.0-100.0) fL MCH 30.9 (28.0-33.3) pg MCHC 33.3 (31.6-35.5) g/dL RDW 11.9 (11.5-14.5) % Plt Count 194 (140-400) K/mcL MPV 12.0 (9.4-12.4) fL Immature Gran % 0.5 (0-4) % Seg Neutrophils % 56.9 % Lymphocytes % 32.3 % Monocytes % 8.3 % Eosinophils % 1.6 % Basophils % 0.4 % Neutrophils # 5.6 (1.6-8.9) K/mcL Lymphocytes # 3.2 (0.6-4.6) K/mcL Monocytes # 0.8 (0.0-1.3) K/mcL Eosinophils # 0.2 (0.0-0.6) K/mcL Basophils # 0.0 (0.0-0.2) K/mcL PT 12.3 H (9.4-12.1) Seconds INR 1.1 APTT 28.2 (26.0-36.0) Seconds Sodium 138 (136-145) mEq/L Potassium 3.9 (3.5-4.5) mEq/L Chloride 100 (98-109) mEq/L Carbon Dioxide 31 H (19-29) mEq/L BUN 14 (8-26) mg/dL Creatinine 0.95 (0.72-1.25) mg/dL Est GFR ( Amer) > 60 (> 60) Est GFR (Non-Af Amer) > 60 (> 60) BUN/Creatinine Ratio 15 (6-26) Glucose 87 (70-99) mg/dL Calculated Osmolality 286 (280-300) Calcium 9.7 (8.6-10.8) mg/dL Troponin I (0-0.03) ng/mL TSH 3.763 (0.350-4.840) mcIU/mL 10/10/17 Range/Units 17:22 WBC (4.3-11.1) K/mcL RBC (4.19-5.50) M/mcL Hgb (12.9-16.9) g/dL Hct (37.5-50.1) % MCV (83.0-100.0) fL MCH (28.0-33.3) pg MCHC (31.6-35.5) g/dL RDW (11.5-14.5) % Plt Count (140-400) K/mcL MPV (9.4-12.4) fL Immature Gran % (0-4) % Seg Neutrophils % % Lymphocytes % % Monocytes % % Eosinophils % % Basophils % % Neutrophils # (1.6-8.9) K/mcL Lymphocytes # (0.6-4.6) K/mcL Monocytes # (0.0-1.3) K/mcL Eosinophils # (0.0-0.6) K/mcL Basophils # (0.0-0.2) K/mcL PT (9.4-12.1) Seconds INR APTT (26.0-36.0) Seconds Sodium (136-145) mEq/L Potassium (3.5-4.5) mEq/L Chloride (98-109) mEq/L Carbon Dioxide (19-29) mEq/L BUN (8-26) mg/dL Creatinine (0.72-1.25) mg/dL Est GFR ( Amer) (> 60) Est GFR (Non-Af Amer) (> 60) BUN/Creatinine Ratio (6-26) Glucose (70-99) mg/dL Calculated Osmolality (280-300) Calcium (8.6-10.8) mg/dL Troponin I 0.02 (0-0.03) ng/mL TSH (0.350-4.840) mcIU/mL - Radiology Data Radiology results reviewed: Yes I reviewed the patient's radiology results. Chest X-Ray 10/10/17 16:54 IMPRESSION: Stable portable study. D/ / Myra Aguilar Cha, MD / Myra Aguilar Cha, MD Interpreting Provider: Myra Aguilar Cha, MD - EKG Data EKG attestation: Yes I reviewed and interpreted this EKG. Rate: tachycardia Rhythm: A.Fib (A. fib rate of [address] segment changes in aVR) Interpretation: unchanged when compared to prior tracing (date) - Core Measures AMI Core Measures Followed: No
--- NOTE | 2017-10-10 17:10 | Emergency Department Note ---
START Narrative - START START: I examined this patient and my medical decision-making was reviewed with the Resident Physician. I agree with the documented findings, disposition and treatment plan as described except to the extent set forth below. ED attending note: Patient seen with emergency medicine resident Dr. Palafox. We independently evaluated the patient and had [id number] contact with the patient. Please see a copy of his note for details of the history and physical, evaluation, management and disposition of this emergency Department patient. Briefly: A 82-year-old male history of atrial fibrillation presents with low blood pressure and palpitations. He does have atrial fibrillation with a rapid ventricular response rate in the 130s. Patient will be getting IV fluids chemical cardioversion and admission. Disposition pending. Providing 30 minutes of critical care service for this patient.
[2017-10-10 18:08] LABS: Basophils % 0.4 %; Eosinophils # 0.2 K/mcL (0.0-0.6); Eosinophils % 1.6 %; Hematocrit 44.8 % (37.5-50.1); Hemoglobin 14.9 g/dL (12.9-16.9); Immature Granulocytes % 0.5 % (0-4); Lymphocytes # 3.2 K/mcL (0.6-4.6); Lymphocytes % 32.3 %; Mean Corpuscular HGB Conc 33.3 g/dL (31.6-35.5); Mean Corpuscular Hemoglobin 30.9 pg (28.0-33.3); Mean Corpuscular Volume 92.9 fL (83.0-100.0); Monocytes # 0.8 K/mcL (0.0-1.3); Monocytes % 8.3 %; Neutrophils # 5.6 K/mcL (1.6-8.9); Platelet Count 194 K/mcL (140-400); Red Blood Count 4.82 M/mcL (4.19-5.50); Red Cell Distribution Width 11.9 % (11.5-14.5); Segmented Neutrophils % 56.9 %
[2017-10-10 18:13] LABS: INR 1.1; Prothrombin Time 12.3 Seconds (9.4-12.1)
[2017-10-10 18:17] LABS: Activated Partial Thrombo Time 28.2 Seconds (26.0-36.0)
[2017-10-10 18:24] LABS: BUN/Creatinine Ratio 15 (6-26); Blood Urea Nitrogen 14 mg/dL (8-26); Calcium 9.7 mg/dL (8.6-10.8); Carbon Dioxide 31 mEq/L (19-29); Chloride 100 mEq/L (98-109); Glucose 87 mg/dL (70-99); Osmolality,Calculated 286 (280-300); Sodium 138 mEq/L (136-145); eGFR For African Americans > 60 (> 60); eGFR For Non-African Americans > 60 (> 60)
[2017-10-10 18:27] LABS: Potassium 3.9 mEq/L (3.5-4.5)
[2017-10-10 18:48] LABS: Thyroid Stimulating Hormone 3.763 mcIU/mL (0.350-4.840)
[2017-10-10] MEDS ORDERED: dilTIAZem HCl 100 MG in D5% in Water 50 ML IVC SCH (19:00)
[2017-10-10 19:47] LABS: Bilirubin,Urine Negative (Negative); Blood,Urine Negative (Negative); Clarity,Urine Clear (Clear); Color,Urine Yellow (Yellow); Glucose,Urine (UA) Normal (Normal); Ketones,Urine Negative (Negative); Leukocyte Esterase,Urine Negative (Negative); Nitrite,Urine Negative (Negative); Protein,Urine Negative (Neg-Trace); Specific Gravity,Urine 1.011 (1.010-1.025); Urobilinogen,Urine Normal (Normal)
--- NOTE | 2017-10-10 20:49 | Internal Med History&Physical ---
<Fabi Dorado - Last Filed: 10/10/17 22:08> Date of Encounter: 10/10/17 Time of Encounter: 20:47 Assessment and Plan (1) Atrial fibrillation with RVR Current visit: Yes Status: Acute Patient admitted for A. fib with RVR According to patient's he forgot to take his Sotolol yesterday morning. His security and privacy consultant is Dr. Marcelo. This may be due to missed medication. EKG showed A.fib with RVR, HR in 130s. CXR- stable UA- negative troponin 0.02 afebrile, WBC WNL, TSH 3.76 normal ECHO 08/04/2017 showed LVEF 60-65% Upon my examination the patient's heart rate was 53, Cardizem drip was stopped. continuous cardiac monitoring continue Cardizem drip if heart rate should increase trend troponin cardiology consultation tomorrow morning continue sotalol tomorrow (2) CAD (coronary artery disease) Current visit: No Status: Chronic History of 3 stents. Taking Plavix and aspirin. Continue home medications Qualifiers: Coronary Disease-Associated Artery/Lesion type: [place] artery [place] vs. transplanted heart: [place] heart Associated angina: without angina Qualified Code(s): I25.10 - Atherosclerotic heart disease of [place] coronary artery without angina pectoris (3) Parkinson disease Current visit: No Status: Chronic Patient has Parkinson's disease taking carbidopa/levodopa continue home medication (4) Hypothyroidism (acquired) Current visit: No Status: Chronic Patient has a history of hyperthyroidism taking levothyroxine TSH level 3.76 Continue home medication (5) GERD (gastroesophageal reflux disease) Current visit: No Status: Chronic Patient has GERD Continue home medication Qualifiers: Esophagitis presence: without esophagitis Qualified Code(s): K21.9 - Gastro -esophageal reflux disease without esophagitis (6) DVT prophylaxis Current visit: No Status: Acute [facility] Internal Medicine - H&P: HPI Chief complaint: palpitations Admitted From: Home Plans for Post Hospital Care: Home History of present illness: Mr. Li is a 82 year old male with a past medical history of A.fib, HLD, parkinsons, CAD with 3 stents, hypothyroidism, GERD who presented to the hospital complaining of palpitations that began this morning. He is alongside his who stated that when she checked his pulse at home it was 112. He stated that he also had shortness of breathe so he put on oxygen and rested but that did not help. They decided to go to the hospital because the dyspnea cannot improve. According to patient's he forgot to take his Sotolol yesterday morning. He denied chest pain, cough, fever, chills, change in vision , headache, syncope, abdominal pain, nausea, vomiting, dysuria. His reported that he has been to the hospital 4x in the last 8weeks due to A.fib. He takes sotalol for rate control and is not on anticoagulation. He was admitted here a couple of weeks ago for A. fib and was found to also have pneumonia. They denied sick contacts, travel. He came from home and is on hospice. His reports that he is a full code. EKG in the ED confirmed A. fib with a heart rate of 137. Upon my examination in the ED the patient had been started on IV Lopressor and then switch to a Cardizem drip. He is given a bolus of IV fluids. His heart rate was 53 and the Cardizem drip was stopped. Past Med Surg Social Fam HX - Past Medical History Medical history: atrial fibrillation, coronary artery disease, dementia, GERD, hyperlipidemia, thyroid disease, other Psychiatric history: no psych history - Past Surgical History Surgical History: angioplasty/stent (x3), other - Social History Smoking Status: Never smoker Smokeless Tobacco Status: No Alcohol use: none Drug use: none Occupational status: disabled Current living situation: Home - Family History Mother Living Status: Father Living Status: Brother Hx Family Cardiac Disorders: Yes Internal Medicine - H&P: Meds Aspirin 81 mg PO QPM 11/27/15 [History] Clopidogrel [Plavix] 75 mg PO QTUTHSA 11/27/15 [History] Furosemide [Lasix] 20 mg PO Q48H 11/27/15 [History] Pantoprazole Sodium [Protonix] 40 mg PO DAILY 11/27/15 [History] Pramipexole Di-HCl [Pramipexole Dihydrochloride] 0.5 mg PO TID 11/27/15 [History ] Simvastatin [Zocor] 20 mg PO QPM 11/27/15 [History] Carbidopa/Levodopa [Carbidopa-Levodopa 25-100 Tab] 2 tab PO QID 08/21/17 [ History] Levothyroxine Sodium [Levoxyl] 112 mcg PO DAILY 08/21/17 [History] Docusate [Colace] 100 mg PO BID 08/26/17 [History] Ergocalciferol (VITAMIN D2) [Vitamin D] 400 unit PO DAILY 08/26/17 [History] Loratadine [Claritin] 10 mg PO DAILY 08/26/17 [History] Ranitidine HCl [Acid [place]] 75 mg PO Q48H 08/26/17 [History] Sotalol [Betapace] 40 mg PO Q12HR #60 tablet 09/06/17 [Rx] Tizanidine HCl 2 mg PO BID 09/28/17 [History] 3 Allergy/AdvReac Type Severity Reaction Status Date / Time diphenhydramine AdvReac See Verified 10/10/17 19:11 [From Benadryl] Comments All Systems PM: A 10-system review of systems was performed and is negative for pertinent findings except as documented above in the HPI. - Constitutional Constitutional: no chills, no fever(s), no falls - EENT Eyes: no blurry vision, no change in vision Nose, mouth and throat: no nasal congestion, no sore throat - Cardiovascular Cardiovascular ROS IM: irregular heart rhythm, palpitations, no chest pain, no diaphoresis - Respiratory Respiratory: dyspnea, no cough, no hemoptysis, no wheezing - Gastrointestinal Gastrointestinal: no abdominal pain, no diarrhea, no nausea, no vomiting - Genitourinary Genitourinary ROS male: no dysuria, no testicular pain - Integumentary Integumentary IM: erythema (groin) - Neurological Neurological ROS: no dizziness, no headache(s) - Psychiatric Psychiatric: no confusion - Constitutional Vitals: Temp Pulse Resp BP Pulse Ox 97.5 F L 97 18 101/65 95 10/10/17 20:21 10/10/17 20:21 10/10/17 20:21 10/10/17 20:21 10/10/17 20:21 General appearance: Present: A&O X 3, pleasant, no acute distress - Head Head exam: Present: atraumatic, normocephalic - Eye Eye exam: Present: conjunctival injection - ENT ENT exam: Present: mucous membranes moist - Neck Neck exam general surgery: Present: supple. Absent: lymphadenopathy, tenderness - Respiratory Respiratory exam: Present: CTAB. Absent: rales, rhonchi, wheezes - Cardiovascular Cardiovascular exam: Present: irregular rhythm. Absent: tachycardia - GI/Abdominal GI/Abdominal exam: Present: normal bowel sounds, soft. Absent: firm, guarding, tenderness - exam: Absent: scrotal swelling, testicular tenderness, urethral discharge - Extremities Exam Extremities exam: Present: normal inspection. Absent: tenderness - Back Exam Back exam: Present: normal inspection. Absent: tenderness - Skin Skin exam: Present: dry, erythema (groin), intact Internal Med - H&P Results - Labs CBC & Chem 7: 10/10/17 17:22 10/10/17 17:22 <Adam Mooney - Last Filed: 10/10/17 23:23> Date of Encounter: 10/10/17 Internal Medicine - H&P: HPI History of present illness: Mr. Li is a 82 year old male All Systems PM: A 10-system review of systems was performed and is negative for pertinent findings except as documented above in the HPI. - Constitutional Vitals: Temp Pulse Resp BP Pulse Ox 97.6 F 97 18 101/65 95 10/10/17 20:50 10/10/17 20:21 10/10/17 20:50 10/10/17 20:50 10/10/17 20:21 Internal Med - H&P Results - Labs CBC & Chem 7: 10/10/17 17:22 10/10/17 17:22 - Attending Attestation I conducted a face to face diagnostic evaluation of this patient and my medical decision-making was reviewed with the Resident Physician, Dr. Fabi Dorado. I agree with the documented findings, disposition and treatment plan as described except to the extent set forth below: On exam the patient is in no acute distress. Heart is bradycardic and irregularly irregular, lungs are clear. Telemetry reviewed by myself shows slow atrial fibrillation. Plan: Hold IV diltiazem. We will resume diltiazem and RVR recurs. Continue with sotalol. Consult cardiology.
[2017-10-10] MEDS ORDERED: Naloxone 0.4 MG/ML INJ IVP PRN (21:01)
[2017-10-10] MEDS ORDERED: Nystatin POWDER 30 GM BOTTLE TP SCH (21:15)
[2017-10-10] MEDS ORDERED: Furosemide 20 MG TABLET PO SCH (22:30)
[2017-10-11] MEDS: Nystatin Cream 15 GM TUBE TP SCH ×2 (01:15→08:30)
[2017-10-11] MEDS ORDERED: *HR* Enoxaparin 40 MG/0.4 ML SYRINGE SQ SCH (06:00)
[2017-10-11 08:22] VITALS: BP 137/77
[2017-10-11] MEDS: Carbidopa/Levodopa 25/100 TABLET PO SCH ×2 (08:28→13:06)
--- NOTE | 2017-10-11 11:04 | Cardiology Consult Note ---
<Linn Duncan - Last Filed: 10/11/17 11:05> Date of Encounter: 10/11/17 Time of Encounter: 10:00 Assessment and Plan (1) Atrial fibrillation with RVR Current Visit: Yes Status: Acute Per cardiology: -Known PAF, on sotalol. -Per reports, missed a dose of sotalol and presented to [facility] in atrial fibrillation with RVR. -ECG with atrial fibrillation with RVR, HR 138. QT 298, QTc 378ms. -Was placed on cardizem drip and sotalol was resumed. -Now currently SR, rate controlled. -Not on anticoagulation due to sigifcant GI bleed and increased falls risk. Of note, patient has advanced parkinsons disease. -On asa and plavix. -Continue sotalol. Continue asa and plavix. -Cardiology will sign off and will follow in outpatient setting. Follow up set. Discussion w patient/family: The assessment and plan as outlined above was discussed with the patient who expressed understanding and agreement. All questions were answered. Thank you for involving us in the care of your patient. Please call with any questions. Discussed and reviewed with . History of Present Illness Consult date: 10/10/17 Requesting physician: Fabi Dorado Consult reason: a.fib RVR Chief complaint: palpitations History of present illness: Mr. Li is a 82 year old male with a relevant past medical history of dementia , advanced Parkinson's disease, PAF, CAD s/p PCI, hypothyroidism, GERD. 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 Patient was recently admitted and started on sotalol, did not tolerate 80mg dose and was discharged with 40mg dose. Patient is not on anticoagulation due to history of GI bleed. At time of my assessment, no family at bedside. Patient answers questions with one word answers. Per review of records, patient missed a dose of sotalol and complained of palpitations to his . Patient presented to [facility] and was noted to be in atrial fibrillation with RVR. Patient says yes when asked if he had palpitations. Patient states no when asked if he has any currently. Past Med Surg Social Fam HX - Past Medical History Attestation: Yes The following information was validated with the patient. Source: patient, old records reviewed Medical history: atrial fibrillation, coronary artery disease, dementia, GERD, hyperlipidemia, thyroid disease, other Psychiatric history: no psych history - Past Surgical History Surgical History: angioplasty/stent, other - Social History Smoking Status: Never smoker Smokeless Tobacco Status: No Alcohol use: none Drug use: none - Family History Mother Living Status: Father Living Status: Hx Family Endocrine Disorder: Yes (DM2) Brother Hx Family Cardiac Disorders: Yes Medications and Allergies Aspirin 81 mg PO QPM 11/27/15 [History] Clopidogrel [Plavix] 75 mg PO QTUTHSA 11/27/15 [History] Furosemide [Lasix] 20 mg PO Q48H 11/27/15 [History] Pantoprazole Sodium [Protonix] 40 mg PO DAILY 11/27/15 [History] Pramipexole Di-HCl [Pramipexole Dihydrochloride] 0.5 mg PO TID 11/27/15 [History ] Simvastatin [Zocor] 20 mg PO QPM 11/27/15 [History] Carbidopa/Levodopa [Carbidopa-Levodopa 25-100 Tab] 2 tab PO QID 08/21/17 [ History] Levothyroxine Sodium [Levoxyl] 112 mcg PO DAILY 08/21/17 [History] Docusate [Colace] 100 mg PO BID 08/26/17 [History] Ergocalciferol (VITAMIN D2) [Vitamin D] 400 unit PO DAILY 08/26/17 [History] Loratadine [Claritin] 10 mg PO DAILY 08/26/17 [History] Ranitidine HCl [Acid Deckhand Sponge Boat] 75 mg PO Q48H 08/26/17 [History] Sotalol [Betapace] 40 mg PO Q12HR #60 tablet 09/06/17 [Rx] Tizanidine HCl 2 mg PO BID 09/28/17 [History] 3 Allergy/AdvReac Type Severity Reaction Status Date / Time diphenhydramine AdvReac See Verified 10/10/17 19:11 [From Eris] Comments All Systems Review: A 10-system review of systems was performed and is negative for pertinent findings except as documented above in the HPI. - Cardiovascular Cardiovascular: as per HPI, palpitations Physical Examination Vital Signs, Last 4 Hours Temp Pulse Resp BP Pulse Ox 10/11/17 08:00 97.9 F 75 18 137/77 100 General: Conversant, No Apparent Distress HEENT: Atraumatic, Normocephaly, Mucus Membranes Moist Neck: No JVD, Normal carotid pulses Cardiac: Reg Rate and Rhythm, Normal S1 and S2, No Murmur Lungs: Normal Breath Sounds, No Wheeze, Rales, Rhonchi Neuro: Alert and responsive, No focal deficits noted Abdomen: Soft, Non-Tender Skin: No rashes noted on visualized skin Musculoskeletal: No Chest Wall Tenderness Extremities: No Clubbing, No Cyanosis, Normal Pulses, Other (Mild bilateral lower extremity edema noted, non-pitting. ) Results 10/10/17 17:22 10/10/17 17:22 Lab Results Impressions Chest X-Ray 10/10/17 16:54 IMPRESSION: Stable portable study. D/ / Myra Aguilar Cha, MD / Myra Aguilar Cha, MD Interpreting Provider: Myra Aguilar Cha, MD Active Medications Aspirin (Aspirin) 81 mg PO QPM [facility] Stop: 04/12/18 18:01 Carbidopa/Levodopa (Sinemet) 2 each PO QID [facility] Stop: 04/12/18 09:01 Last Admin: 10/11/17 08:28 Dose: 2 each Clopidogrel Bisulfate (Plavix) 75 mg PO QTUTHSA [facility] Stop: 04/12/18 09:01 Last Admin: 10/11/17 08:29 Dose: 75 mg Enoxaparin Sodium (Lovenox) 40 mg SQ 0600 [facility] PRN Reason: Protocol Stop: 04/12/18 06:01 Last Admin: 10/11/17 08:27 Dose: 40 mg Furosemide (Lasix) 20 mg PO Q48H [facility] Stop: 04/11/18 22:31 Last Admin: 10/11/17 01:26 Dose: 20 mg Diltiazem HCl 100 mg/ Dextrose 50 mls @ 2.5 mls/hr IVC .Q20H SRINI PRN Reason: 5 MG/HR Stop: 04/11/18 19:01 Last Admin: 10/10/17 19:47 Dose: 5 mg/hr, 2.5 mls/hr Levothyroxine Sodium (Synthroid) 112 mcg PO DAILY@0630 [facility] Stop: 04/12/18 06:31 Last Admin: 10/11/17 08:29 Dose: 112 mcg Naloxone HCl (Narcan) 0.4 mg IVP Q2MIN PRN PRN Reason: Opioid Reversal Stop: 04/11/18 21:02 Nystatin (Mycostatin Cream) 1 appl TP TID [facility] Stop: 04/11/18 22:01 Last Admin: 10/11/17 08:30 Dose: Not Given Omeprazole (Prilosec) 40 mg PO DAILY@0630 [facility] PRN Reason: Protocol Stop: 04/12/18 06:31 Last Admin: 10/11/17 08:28 Dose: 40 mg Sotalol HCl (Betapace) 40 mg PO Q12HR [facility] Stop: 04/12/18 08:16 Last Admin: 10/11/17 09:24 Dose: 40 mg Laboratory Tests 10/10/17 10/10/17 10/10/17 17:22 17:22 17:22 Hgb 14.9 Potassium 3.9 Creatinine 0.95 Troponin I 0.02 TSH 3.763 10/11/17 00:48 Hgb Potassium Creatinine Troponin I 0.02 TSH - Imaging and Cardiology Chest Xray: report reviewed Echo: report reviewed - EKG Interpretation EKG results cardiology: personally reviewed (ECG with atrial fibrillation with RVR, HR 138.), other (Telemetry reviewed with average HR previous 12 hours noted to be 71, sinsu rhythm. PVCs and PACs noted.) Consult Discharge Plan - Plan Referrals: Selina Laws MD [Primary Care Provider] - <Drea Merritt - Last Filed: 10/11/17 11:49> Date of Encounter: 10/11/17 - Attending Attestation I have personally performed a face to face evaluation on this patient. I have reviewed and agree with the care plan. History and Exam by me shows: Atrial fibrillation after missing dose of sotalol, on asa + plavix for stroke risk reduction due to GI bleed in past. Back in NSR now asymptomatic. Continue previous meds and follow up as an OP with it security project manager, resume sotalol Assessment and Plan Discussion w patient/family: The assessment and plan as outlined above was discussed with the patient and/or family members who expressed understanding and agreement. All questions were answered. Thank you for involving us in the care of your patient. Please call with any questions. History of Present Illness History of present illness: Mr. Li is a 82 year old male All Systems Review: A 10-system review of systems was performed and is negative for pertinent findings except as documented above in the HPI. Physical Examination Vital Signs, Last 4 Hours Temp Pulse Resp BP Pulse Ox 10/11/17 08:00 97.9 F 75 18 137/77 100 Results 10/10/17 17:22 10/10/17 17:22 Lab Results 10/11/17 00:48 Troponin I 0.02
--- NOTE | 2017-10-11 11:53 | Discharge Summary ---
Date of Encounter: 10/11/17 Time of Encounter: 11:50 - Discharge Diagnosis (1) Atrial fibrillation with RVR Priority: Primary Status: Acute (2) CAD (coronary artery disease) Priority: Secondary Status: Chronic Qualifiers: Coronary Disease-Associated Artery/Lesion type: [place] artery [place] vs. transplanted heart: [place] heart Associated angina: without angina Qualified Code(s): I25.10 - Atherosclerotic heart disease of [place] coronary artery without angina pectoris (3) GERD (gastroesophageal reflux disease) Priority: Secondary Status: Chronic Qualifiers: Esophagitis presence: without esophagitis Qualified Code(s): K21.9 - Gastro -esophageal reflux disease without esophagitis (4) Hypothyroidism (acquired) Priority: Secondary Status: Chronic (5) Parkinson disease Priority: Secondary Status: Chronic (6) DVT prophylaxis Priority: Secondary Status: Acute - Discharge Medications Home Medications: Aspirin 81 mg PO QPM 11/27/15 [History] Clopidogrel [Plavix] 75 mg PO QTUTHSA 11/27/15 [History] Furosemide [Lasix] 20 mg PO Q48H 11/27/15 [History] Pantoprazole Sodium [Protonix] 40 mg PO DAILY 11/27/15 [History] Pramipexole Di-HCl [Pramipexole Dihydrochloride] 0.5 mg PO TID 11/27/15 [History ] Simvastatin [Zocor] 20 mg PO QPM 11/27/15 [History] Carbidopa/Levodopa [Carbidopa-Levodopa 25-100 Tab] 2 tab PO QID 08/21/17 [ History] Levothyroxine Sodium [Levoxyl] 112 mcg PO DAILY 08/21/17 [History] Docusate [Colace] 100 mg PO BID 08/26/17 [History] Ergocalciferol (VITAMIN D2) [Vitamin D] 400 unit PO DAILY 08/26/17 [History] Loratadine [Claritin] 10 mg PO DAILY 08/26/17 [History] Ranitidine HCl [Acid Linen Supervisor] 75 mg PO Q48H 08/26/17 [History] Sotalol [Betapace] 40 mg PO Q12HR #60 tablet 09/06/17 [Rx] Tizanidine HCl 2 mg PO BID 09/28/17 [History] Allergies/Adverse Reactions: 3 Allergy/AdvReac Type Severity Reaction Status Date / Time diphenhydramine AdvReac See Verified 10/10/17 19:11 [From Benadryl] Comments Date of admission: 10/10/17 21:56 Primary care physician: Selina Laws MD Consults: 10/10/17 22:14 Consult to Cardiology [CONS] Routine Comment: Consulting Provider: Cardiology Elizabeth Reason for Consult: A.fib with RVR Call Completed: No Discharging clinician: Nancy Hidalgo Anticipated date of discharge: 10/11/17 - Patient Status Disposition: Hospice - Home Condition: Fair Functional capacity at discharge: independent ambulation Overall status at discharge: patient is progressing back to baseline - Discharge Instructions Instructions: Atrial Fibrillation (DC) Follow Up With: Selina Laws MD [Primary Care Provider] - (in 1-2 weeks) - Diet and Activity Activity: as per physical therapy, increase activity as tolerated Diet: advance to your usual diet, low fat, low cholesterol, low salt diet Hospital course: Mr. Li is a 82 year old male patient with a history of CHF, atrial fibrillation, Parkinson's disease who was hospitalized here after he presented to the ER in rapid A. fib. He had missed his dose of sotalol and this is believed to have caused him to go back into atrial fibrillation. He was monitored overnight in the hospital and has now been started back on sotalol. His heart rate is back in sinus rhythm and he is doing much better. He is clinically stable to be discharged back home. Cardiology evaluated patient and they did not recommend any other medications at this time. Patient is not on anticoagulation due to history of GI bleed and increased fall risk. - Time Spent with Patient Total time spent providing and/or coordinating discharge services: Less than 30 minutes (25 min) - Constitutional Vitals: Temp Pulse Resp BP Pulse Ox 97.9 F 75 18 137/77 100 10/11/17 08:00 10/11/17 08:00 10/11/17 08:00 10/11/17 08:00 10/11/17 08:00 General appearance: Present: A&O X 3, pleasant, no acute distress, answers questions appropriately - Respiratory Respiratory exam: Present: CTAB. Absent: accessory muscle use, rales, rhonchi, wheezes - Cardiovascular Cardiovascular exam: Present: RRR, +S1, +S2. Absent: diastolic murmur, gallop, rubs, systolic murmur - GI/Abdominal GI/Abdominal exam: Present: normal bowel sounds, soft, no peritoneal signs. Absent: distended, tenderness
--- NOTE | 2017-10-11 11:56 | Physician Discharge Referral ---
Home Health/Hosp Referral Info Transfer to: Hospice Provider in Charge Post Discharge: PCP - Diagnosis (1) Atrial fibrillation with RVR Priority: Primary Status: Acute (2) CAD (coronary artery disease) Priority: Secondary Status: Chronic (3) GERD (gastroesophageal reflux disease) Priority: Secondary Status: Chronic (4) Hypothyroidism (acquired) Priority: Secondary Status: Chronic (5) Parkinson disease Priority: Secondary Status: Chronic (6) DVT prophylaxis Priority: Secondary Status: Acute - Respiratory Orders Oxygen / L per min (2) Smoking Cessation: Smoking cessation has been advised. For more information, call the [place] Tobacco Quit Line at 3-133-ZEOP-NOW. - Diet/Nutrition Diet/Nutrition Orders: Cardiac - Activity Activity Orders: Walker - Services Needed Following services are medically necessary services: Nursing, Home Health Aide, Physical Therapy, Occupational Therapy, Med Social Work - Transfer Medications Home Medications: Aspirin 81 mg PO QPM 11/27/15 [History] Clopidogrel [Plavix] 75 mg PO QTUTHSA 11/27/15 [History] Furosemide [Lasix] 20 mg PO Q48H 11/27/15 [History] Pantoprazole Sodium [Protonix] 40 mg PO DAILY 11/27/15 [History] Pramipexole Di-HCl [Pramipexole Dihydrochloride] 0.5 mg PO TID 11/27/15 [History ] Simvastatin [Zocor] 20 mg PO QPM 11/27/15 [History] Carbidopa/Levodopa [Carbidopa-Levodopa 25-100 Tab] 2 tab PO QID 08/21/17 [ History] Levothyroxine Sodium [Levoxyl] 112 mcg PO DAILY 08/21/17 [History] Docusate [Colace] 100 mg PO BID 08/26/17 [History] Ergocalciferol (VITAMIN D2) [Vitamin D] 400 unit PO DAILY 08/26/17 [History] Loratadine [Claritin] 10 mg PO DAILY 08/26/17 [History] Ranitidine HCl [Acid Art Model] 75 mg PO Q48H 08/26/17 [History] Sotalol [Betapace] 40 mg PO Q12HR #60 tablet 09/06/17 [Rx] Tizanidine HCl 2 mg PO BID 09/28/17 [History] Allergies/Adverse Reactions: 3 Allergy/AdvReac Type Severity Reaction Status Date / Time diphenhydramine AdvReac See Verified 10/10/17 19:11 [From Benadryl] Comments Certification: Further, I certify that my clinical findings support that this patient is homebound (i.e. absences from home require considerable and taxing effort and are for medical reasons or mu-ism services or infrequently or short duration when for other reasons) because: Homebound Reason: Patient requires assistance of a person or device to safely leave home, Severity of cardiac or pulmonary status limits activity tolerance Attestation: My signature below is to certify that this patient is under my care and that I, or nurse practitioner, or a physician's environmental engineering assistant working with me, has a face-to -face encounter with this patient.
[2017-10-11] MEDS ORDERED: Aspirin 81 MG TAB.CHEW PO SCH (18:00)
--- NOTE | 2017-10-11 19:39 | Electrocardiograph Report ---
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
== END 2017-10-11 14:33 | disposition hospice, home (50) | DRG 310 ==
LOC: EMEROO 16:39 → 2NENU 16:39 → SUATTDRO 21:56
PROVIDERS: ADMIT Internal Medicine; ATTEND Internal Medicine